=== PATIENT | female | born 1970 | race Caucasian/White ===

== ENCOUNTER → 2025-03-24 | Outpatient (CLI) | payer BC, SELFPAY ==
[2025-03-24 14:15] LABS: Mucous, Urine 0 SEEN /hpf (<or=2+)
[2025-03-24 17:58] LABS: Hematocrit 40.9 % (37-47); Hemoglobin 13.7 g/dL (12.0-15.0); Immature Granulocytes Count 0.010 X10^3/uL (0.0-0.0); Mean Corp Hgb Conc 33.5 g/dL (32-36); Mean Corpuscular Volume 88.7 fL (81-99); Mean Platelet Vol. 9.2 fl (6.2-12.0); NRBC Flagged by Analyzer 0 % (0-5); Platelet Count 255 K/mm3 (150-450); RBC Distribution Width CV 12.0 % (11.6-14.6); RBC Distribution Width SD 38.7 fl (35.1-43.9); Red Blood Count 4.61 M/mm3 (4.2-5.4); White Blood Count 5.6 K/mm3 (4.4-11.0)
[2025-03-24 18:04] LABS: Color, Urine Straw (Yellow); Glucose, Dipstick Normal (Normal); Ketone-Dipstick Negative (Negative); Leukocyte Esterase-Dipstick Negative /ul (Negative); Nitrite-Dipstick Negative (Negative); Occult Blood-Urine 10 /ul (Negative); Protein-Dipstick Negative (Negative); Specific Gravity, Urine 1.010 (1.002-1.030); Urine Bilirubin Dipstick Negative (Negative)
[2025-03-24 18:49] LABS: AST(SGOT) 24 U/L (<=31); Alanine Aminotransfer ALT/SGPT 19 U/L (<=34); Albumin, Serum 4.9 g/dL (3.5-5.0); Alkaline Phosphatase 79 U/L (35-104); Anion Gap 13 (5-15); BUN 15 mg/dL (4-19); BUN/Creat Ratio 18.3 RATIO (10-20); Calcium,Total 9.8 mg/dL (7.6-11.0); Carbon Dioxide 26.7 mmol/L (21.0-32.0); Chloride 100 mmol/L (98-108); Globulin 2.8 g/dL (2.2-4.2); Glucose 92 mg/dL (70-99); Potassium 3.9 mmol/L (3.3-5.1)
[2025-03-24 19:21] LABS: CRP < 3.00 mg/L (0.0-3.0); Ferritin 111 ng/mL (22-378); Iron 93 ug/dL (50-170); T3 Total - Triiodothyronine 1.01 ng/mL (0.80-2.00); Vitamin B12 516 pg/mL (180-914); Vitamin D,25 Hydroxy 34.9 ng/mL (30-100)
[2025-03-24 22:28] LABS: Red Blood Cells-Urine 0-5 SEEN /hpf (0-5); Squamous Epithelial Cells - UA 0-5 SEEN /hpf (5-10)
[2025-03-30 13:08] LABS: Testosterone, % Free 2.06 % (0.50-2.80); Testosterone, Free 0.14 ng/dL (0.10-0.85)
== END | disposition home or self-care (01) ==
PROVIDERS: PCP Internal Medicine; Referring Provider Internal Medicine; Visit Provider Internal Medicine
DX: I10 Essential (primary) hypertension (principal); E03.9 Hypothyroidism, unspecified; R53.83 Other fatigue
CPT/HCPCS: 36415; 80053; 81001; 82306; 82607; 82670; 82728; 83540; 84402; 84403; 84439; 84443; 84480; 85025; 85652; 86140

== ENCOUNTER → 2025-05-05 | Outpatient (CLI) | payer BC, SELFPAY ==
--- NOTE | 2025-05-05 08:29 | BD_ITS ---
PROCEDURE: DEXA BONE DENSITY STUDY 05/05/2025 REASON FOR EXAM: F, age 55 y/o . Patient is postmenopausal. TECHNIQUE: Procedure Code: BDDBD Modality: DX Procedure: DEXA BONE DENSITY STUDY COMPARISON: None FINDINGS: BMD and T-SCORES Lumbar spine: 0.870 g/cm2, T-score -1.6 Levels: L1 through L4 Left femoral neck: 0.634 g/cm2, T-score -1.9 Left total hip: 0.800 g/cm2, T-score -1.2 Right femoral neck: 0.633 g/cm2, T-score -1.9 Right total hip: 0.816 g/cm2, T-score -1.0 The World Health Organization has defined the following categories based on bone density: Normal bone density: T-score equal to or greater than -1.0 Osteopenia: T-score between -1.0 and -2.5 Osteoporosis: T-score equal to or less than -2.5 FRAX (or Comparable) Fracture Risk Assessment: 10 Year Probability of Fracture: Major Osteoporotic Fracture: 7.7% Hip Fracture: 0.9% (Note: FRAX is not to be reported in setting of normal range bone density, osteoporosis on DEXA, known history of osteoporosis, prior osteoporotic hip or vertebral fracture, or for any patient undergoing pharmacological treatment for bone loss.) The National Osteoporosis Foundation (NOF) recommends pharmacological treatment for patients with a FRAX 10-year risk of 3% or higher for a hip fracture, or 20% or higher for a major osteoporotic fracture, to prevent osteoporosis and reduce fracture risk. The patient does not meet the pharmacological treatment recommendations for prevention of osteoporosis. BD/Dexa Bone Density Study IMPRESSION: OSTEOPENIA. Recommend follow-up in 1 year. Reading Location: [id number]
--- OUTSIDE RECORDS SUMMARY | 2025-05-05 08:47 | XMS RPT_ITS | CCD ---
Author Organization [facility] ion Partnership [facility] Care Team Providers Care Hall Porter Name Role Phone Kathy Madrigal MD Primary Care Provider Iris Carranza Jr. Unavailable [phone] Kathy Madrigal MD Primary Care Provider [phone] Dillon Matthew MD, James Andrew Unavailable Aashish PARACHUTE PACKER.FRED, Lorena Unavailable KATHY MADRIGAL Primary Care Unavailable JORGE BARRETO Referring Unavailable KATHY MADRIGAL Referring Unavailable KATHY MADRIGAL Primary Care Unavailable LORENA ZENDEJAS Attending Unavailable KATHY MADRIGAL Primary Care Unavailable KATHY MADRIGAL Primary Care Unavailable KATHY MADRIGAL Attending Unavailable KATHY MADRIGAL Primary Care Unavailable SONWELLMARCO ANTONIOA Attending Unavailable KenishaCarson lundyril Attending Unavailable Scout Madrigal Primary Care Unavailable Fast, Alma Referring Unavailable Fast, Alma Attending Unavailable Fast, Alma Primary Care Unavailable Allergies Allergy Classification Reported Allergen(s) Allergy Type Date of Onset Reaction(s) Facility Macrolides (antibiotic) (1 source) Erythromycin Drug Allergy 8 [facility] (20 sources) Erythromycin; Translations: [ERYTHROMYCIN] Drug Allergy 8 [facility] (20 sources) Bees; Translations: [BEES] Propensity to adverse reactions 8 Cough, [facility] (20 sources) Kiwi; Translations: [KIWI] Propensity to adverse reactions 8 [facility] (1 source) Erythromycin Drug Allergy 6 [facility] Repository Medications Current Medications Medication Drug Class(es) Dates Sig (Normalized) Sig (Original) amoxicillin 875 mg / clavulanate 125 mg oral tablet (1 source) Penicillin-class Antibacterial Start: 04-20-2023 End: 04-27-2023 take 1 tablet by mouth twice daily amoxicillin-clavulan ate potassium (AUGMENTIN) 875-125 mg per tablet Indications: Sinobronchitis Take 1 tablet by mouth two times a day for 7 days. 14 tablet 0 04/20/2023 04/27/2023 Active Comment on above: Take 1 tablet by sammi th two times a day for 7 days. aspirin 81 mg chewable tablet (17 sources) Platelet Aggregation Inhibitor, Nonsteroidal Anti-inflammatory Drug Start: 07-21-2015 take 81 mg by mouth once daily Aspirin Active 81 MG PO DAILY@0800 July 21, 2015 1:00am Start: 06-02-2015 take 1 tablet by sammi th once daily aspirin, enteric coated (ASPIRIN, ENTERIC COATED) 81 mg EC tablet Take 1 tablet by mouth once daily. 0 06/02/2015 Active Comment on above: Take 1 tablet by sammi th once daily. [id number] Calcium-B6 (Foltx Tablet) 1 EACH tablet (1 source) Start: 07-21-19 16 [id number] Calcium-B6 (Foltx Tablet) 1 EACH tablet Active 1 EACH PO July 21, 2015 1:00am benzonatate 100 mg oral capsule (1 source) Non-narcotic Antitussive Start: 04-20-20 End: 04-30-20 23 take 2 capsules by mouth three times daily as needed benzonatate (TESSALON PERLE) 100 mg capsule Indications: Sinobronchitis Take 2 capsules by mouth three times a day as needed for up to 10 days. 60 capsule 0 04/20/2023 04/30/2023 Active Comment on above: Take 2 capsules by m out three times a day as needed for up to 10 days. busPIRone hydrochloride 10 mg oral tablet (20 sources) Start: 03-16-20 End: 09-11-19 take 1 tablet by mouth three times daily as needed busPIRone (BUSPAR) 10 mg tablet Indications: Mixed anxiety and depressive disorder TAKE 1 TABLET BY MOUTH THREE TIMES A DAY NEEDED 270 tablet 1 09/10/2024 Active Start: 08-04-2017 End: 03-16-2021 busPIRone (BUSPAR) 5 mg tabl et Comment on above: Take 1 tablet by sammi th three times daily. citalopram 20 mg oral tablet (20 sources) Serotonin Reuptake Inhibitor Start: 03-19-2024 take 1.5 tablets by mouth once daily citalopram (CELEXA) 20 mg tablet Indications: Mixed anxiety and depressive disorder Take 1.5 tablets by mouth once daily. 135 tablet 2 03/19/2024 Active Start: 07-06-2023 End: 03-19-2024 citalopram (CELEXA) 20 mg ta blet Indications: Mixed anxiety and depressive disorder TAKE 1 AND 1/2 TABLETS ONCEDAILY 135 tablet 2 07/06/2023 03/19/2024 Discontinued Start: 03-16-2021 End: 07-06-2023 take 1.5 tablets by mouth once daily citalopram (CELEXA) 20 mg tablet Indications: Mixed anxiety and depressive disorder Take 1.5 tablets by mouth once daily. 135 tablet 3 07/24/2022 07/06/2023 Discontinued Start: 03-12-2020 End: 03-16-2021 take 2 tablets by mouth once daily citalopram (CELEXA) 20 mg tablet Indications: Mixed anxiety and depressive disorder Take 2 tablets by mouth once daily. 180 tablet 3 03/12/2020 03/16/2021 Discontinued Start: 02-19-2020 End: 03-16-2021 take 1 tablet by mouth once daily citalopram (CELEXA) 20 mg tablet Indications: Mixed anxiety and depressive disorder TAKE 1 TABLET BY MOUTH EVERY DAY 90 tablet 1 02/19/2020 03/16/2021 Discontinued Comment on above: TAKE 1 TABLET BY SAMMI TH EVERY DAY Take [address] [facility] once daily. Take 1.5 tablets by mouth once daily. TAKE 1 AND 1/2 TABLE TS ONCEDAILY docusate sodium 50 mg / sennosides, senior care 8.6 mg oral tablet (1 source) Start: 07-21-2015 Sennosides-Docusate Sodium (Senokot-S, Shayy-Colace) 1 TABLET tablet Active 2 TABLET PO DAILY July 21, 2015 1:00am [id number] 0.3 ml EPINEPHrine 1 mg/ml auto-injector (20 sources) alpha-Adrenergic Agonist, beta-Adrenergic Agonist, Catecholamine Start: 03-19-2018 End: 03-19-2024 EPINEPHrine (EPIPEN) 0.3 mg/0.3 mL auto-injector Indications: Bee sting allergy As instructed, when needed 1 Each 03/19/2024 Active Comment on above: As instructed, when needed estradiol 0.004 mg vaginal insert (20 sources) Estrogen Start: 03-31-2022 End: 04-28-2024 estradiol 4 mcg vaginal suppository maintenance pack (IMVEXXY) Indications: Vaginal atrophy Use 1 Suppository vaginally two times a week. 24 Each 3 04/28/2024 Active Start: 02-10-2022 estradiol 4 mc g vaginal suppository maintenance pack (IMVEXXY) Indications: Vaginal atrophy Use 1 Suppository vaginally two times a week. 8 Each 3 02/10/2022 Active Start: 01-25-2022 estradiol (EST RACE) 0.01 % (0.1 mg/gram) vaginal cream Indications: Vaginal dryness Use 1 g vaginally two times a week. 126 g 0 01/25/2022 Active Start: 12-31-2020 End: 01-22-2022 estradiol (ESTRACE) 0.01 % ( 0.1 mg/gram) vaginal cream Indications: Vaginal dryness Use 1 g vaginally two times a week. 126 g 1 12/31/2020 01/22/2022 Discontinued Comment on above: Use 1 g vaginally tw o times a week. Use 1 Suppository va ginally two times a week. fluticasone propionate 0.05 mg/actuat metered dose nasal spray (20 sources) Corticosteroid Start: 09-20-19 17 take 2 spray(s) nasal route once daily fluticasone (FLONASE) 50 mcg/actuation nasal spray USE 2 SPRAYS IN EACH NOSTRIL ONCE DAILY. 1 Bottle 11 09/19/2016 Active Comment on above: USE 2 SPRAYS IN EACH NOSTRIL ONCE DAILY. folic acid 2.5 mg / vitamin b12 2 mg / vitamin b6 25 mg oral tablet (20 sources) Vitamin B12 Start: 04-12-20 End: 07-24-19 23 take 1 tablet by mouth once daily folic acid-Vit B6-Vit B12 (FOLBIC) 2.5-25-2 mg tab Take 1 tablet by mouth once daily. 90 tablet 3 07/24/2022 Active Comment on above: TAKE 1 TABLET BY SAMMI TH ONCE DAILY. levothyroxine sodium 0.125 mg oral tablet (20 sources) l-Thyroxine Start: 10-01-19 take 1 tablet by mouth once daily levothyroxine (SYNTHROID) 125 mcg tablet Take 1 tablet by mouth once daily. 90 tablet 1 09/30/2024 Active Start: 03-14-2023 End: 09-30-2024 take 1 tablet by mouth once daily levothyroxine (SYNTHROID) 25 mcg tablet Take 1 tablet by mouth once daily. Take on empty stomach. For Thyroid. In addition to the 100 mcg dose tablet . 90 tablet 10/10/2023 09/30/2024 Discontinued (Changing Therapy/Dosage Form) Start: 02-19-2023 End: 09-30-2024 take 1 tablet by mouth once daily levothyroxine (SYNTHROID) 100 mcg tablet Indications: Acquired hypothyroidism Take 1 tablet by mouth once daily. 90 tablet 3 10/10/2023 09/30/2024 Discontinued (Changing Therapy/Dosage Form) Start: 07-21-2015 End: 12-15-2021 take 1 tablet by mouth once daily levothyroxine (SYNTHROID) 100 mcg tablet Indications: Acquired hypothyroidism Take 1 tablet by mouth once daily. 90 tablet 2 12/15/2021 Active Comment on above: TAKE 1 TABLET BY SAMMI TH EVERY DAY Take 1 tablet by sammi th once daily. Take 1 tablet by sammi th once daily. Take on empty stomach. For Thyroid. In addition to the 100 mcg dose tablet . lisinopril 10 mg oral tablet (20 sources) Angiotensin Converting Enzyme Inhibitor Start: 3 End: take 1 tablet by mouth once daily lisinopril (ZESTRIL) 10 mg tablet Indications: Primary hypertension Take 1 tablet by mouth once daily. 90 tablet 3 03/19/2024 Active Start: 03-12-2020 End: 02-08-2023 take 1 tablet by mouth once daily lisinopril (ZESTRIL) 10 mg tablet Indications: Essential hypertension Take 1 tablet by mouth once daily. 90 tablet 0 02/08/2023 Active Comment on above: Take 1 tablet by sammi th once daily. meclizine hydrochloride 25 mg oral tablet (20 sources) Antiemetic Start: 2 take 1 tablet by mouth every eight hours as needed meclizine (ANTIVERT) 25 mg tab Take 1 tablet by mouth three times daily as needed (dizziness). 10 tablet 06/22/2021 Active Start: 07-21-2015 take 1 tablet by sammi th every eight hours as needed Meclizine (Antivert) 25 MG tablet Active 25 MG PO EVERY 8 HOURS NEEDED July 21, 2015 1:00am Comment on above: Take 1 tablet by sammi th three times daily as needed (dizziness). melatonin 5 mg oral tablet (20 sources) Start: 6 take 1 tablet by mouth once daily at bedtime Melatonin 5 mg tab Take 1 tablet by mouth daily at bedtime. 0 06/02/2015 Active Comment on above: Take 1 tablet by sammi th daily at bedtime. montelukast 10 mg oral tablet (20 sources) Leukotriene Receptor Antagonist Start: 3 End: 4 take 1 tablet by mouth once daily at bedtime montelukast (SINGULAIR) 10 mg tablet Indications: Seasonal allergic rhinitis, unspecified trigger Take 1 tablet by mouth daily at bedtime. 90 tablet 3 03/19/2024 Active Start: 11-09-2021 End: 09-11-2022 take 1 tablet by mouth once daily at bedtime montelukast (SINGULAIR) 10 mg tablet Take 1 tablet by mouth daily at bedtime. 90 tablet 1 09/11/2022 Active Start: 07-25-2021 take 1 tablet by sammi th once daily at bedtime montelukast (SINGULAIR) 10 mg tablet TAKE 1 TABLET BY MOUTH EVERYDAY AT BEDTIME 90 tablet 0 07/25/2021 Active Start: 01-18-2021 End: 04-23-2021 take 1 tablet by mouth once daily at bedtime montelukast (SINGULAIR) 10 mg tablet Take 1 tablet by mouth daily at bedtime. 90 tablet 0 01/18/2021 04/23/2021 Discontinued Start: 07-21-2015 Singulair Acti ve July 21, 2015 1:00am Comment on above: Take 1 tablet by sammi th daily at bedtime. TAKE 1 TABLET BY SAMMI TH EVERYDAY AT BEDTIME ondansetron 4 mg disintegrating oral tablet (1 source) Serotonin-3 Receptor Antagonist Start: 6 take 4 mg by mouth every eight hours as needed Ondansetron Active 4 MG PO EVERY 8 HOURS NEEDED July 21, 2015 1:00am predniSONE 10 mg oral tablet (3 sources) Start: End: 4 predniSONE (DELTASONE) 10 mg tablet Take 4 tabs daily for 3 days, then 2 tabs daily for 3 days, then 1 tab daily for 3 days with food. 21 tablet 0 07/10/2023 07/19/2023 Active Start: 04-20-2023 End: 04-24-2023 take 2 tablets by mouth once daily at mealtime predniSONE (DELTASONE) 20 mg tablet Indications: Sinobronchitis Take 2 tablets by mouth once daily for 4 days. Take daily with food. 8 tablet 0 04/20/2023 04/24/2023 Active Comment on above: Take [address] [facility] once daily for 4 days. Take daily with food. Take 4 tabs daily fo r 3 days, then 2 tabs daily for 3 days, then 1 tab daily for 3 days with food. sertraline 100 mg oral tablet (1 source) Serotonin Reuptake Inhibitor Start: 07-21-2015 take 100 mg by mouth once daily Sertraline Active 100 MG PO DAILY July 21, 2015 1:00am Completed/Discontinued Medications Medication Drug Class(es) Dates Sig (Normalized) Sig (Original) doxycycline anhydrous 40 mg delayed release oral capsule (17 sources) Tetracycline-class Drug Start: 07-21-2015 take 1 capsule by mouth once daily Doxycycline Monohydrate 40 mg capsule Indications: Rosacea TAKE 1 CAPSULE BY MOUTH EVERY DAY 90 capsule 1 03/18/2019 Active Comment on above: TAKE 1 CAPSULE BY MO [facility] EVERY DAY naproxen 500 mg oral tablet (11 sources) Nonsteroidal Anti-inflammatory Drug Start: 05-05-2023 End: 03-19-2024 take 1 tablet by mouth every twelve hours as needed naproxen (NAPROSYN) 500 mg tablet Take 1 tablet by mouth two times a day as needed (for pain/inflammation) . Take with food. 14 tablet 05/05/2023 03/19/2024 Discontinued (Course of therapy completed) Comment on above: Take 1 tablet by sammi th two times a day as needed (for pain/inflammation). Take with food. VOL-TAB RX 29 mg iron- 1 mg tab (16 sources) Start: 04-01-2018 take 1 tablet by mouth once daily VOL-TAB RX 29 mg iron- 1 mg tab TAKE 1 TABLET BY MOUTH ONCE DAILY. 90 tablet 3 04/01/2018 Active Comment on above: TAKE 1 TABLET BY SAMMI TH ONCE DAILY. Problems Active Problems Problem Classification Problem Date Documented Date Episodic/Chronic Anxiety disorders (20 sources) Mixed anxiety and depressive disorder; Translations: [Other specified anxiety disorders] Onset: 05-22-2014 05-22-2014 Chronic Coma; stupor; and brain damage (2 sources) Daytime somnolence; Translations: [Somnolence] 03-14-2023 Episodic Deficiency and other anemia (20 sources) Hemolytic uremic syndrome; Translations: [Hemolytic-uremic syndrome] Onset: 05-14-2011 09-17-2018 Chronic Essential hypertension (20 sources) Hypertensive disorder; Translations: [Essential (primary) hypertension] Onset: 07-24-2013 07-24-2013 Chronic Headache; including migraine (20 sources) Migraine; Translations: [Migraine, unspecified, not intractable, without status migrainosus] 03-12-2017 Chronic Immunizations and screening for infectious disease (1 source) Vaccination given; Translations: [Encounter for immunization] Episodic Malaise and fatigue (3 sources) Fatigue; Translations: [Other fatigue] Onset: 03-24-2025 03-14-2023 Episodic Menopausal disorders (20 sources) Abnormal perimenopausal bleeding; Translations: [Excessive bleeding in the premenopausal period] Onset: 09-17-2016 09-17-2016 Chronic Nonspecific chest pain (2 sources) Chest wall pain; Translations: [Other chest pain] 07-11-2023 Episodic Other and unspecified benign neoplasm (1 source) Lipoma of anterior chest wall; Translations: [Benign lipomatous neoplasm of skin and subcutaneous tissue of trunk] 10-10-2023 Episodic Other bone disease and musculoskeletal deformities (1 source) Costal chondritis; Translations: [Chondrocostal junction syndrome [Tietze]] 07-11-2023 Episodic Other female genital disorders (1 source) Vaginal dryness; Translations: [Other specified noninflammatory disorders of vagina] Episodic Other inflammatory condition of skin (20 sources) Rosacea; Translations: [Rosacea, unspecified] Onset: 12-13-2018 12-13-2018 Chronic Other lower respiratory disease (1 source) Snoring; Translations: [Snoring] 03-16-2023 Episodic Other lower respiratory disease (3 sources) Persistent cough; Translations: [Persistent cough for 3 weeks or longer] 04-20-2023 Episodic Other lower respiratory disease (1 source) Cough; Translations: [Subacute cough] 05-05-2023 Episodic Other lower respiratory disease (1 source) Rib pain; Translations: [Pleurodynia] 05-05-2023 Episodic Other upper respiratory disease (20 sources) Allergic rhinitis; Translations: [Allergic rhinitis, unspecified] 02-18-2008 Chronic Other upper respiratory disease (3 sources) Seasonal allergic rhinitis; Translations: [Other seasonal allergic rhinitis] Chronic Other upper respiratory disease (1 source) Other seasonal allergic rhinitis; Translations: [Seasonal allergic rhinitis, unspecified trigger] Onset: 12-15-2021 Chronic Other upper respiratory infections (1 source) Chronic sinusitis; Translations: [Chronic sinusitis, unspecified] 04-20-2023 Chronic Other upper respiratory infections (1 source) Viral upper respiratory tract infection; Translations: [Acute upper respiratory infection, unspecified] 08-03-2023 Episodic Residual codes; unclassified (2 sources) Daytime somnolence; Translations: [Other hypersomnia] 03-16-2023 Chronic Residual codes; unclassified (1 source) Obstructive sleep apnea syndrome; Translations: [Obstructive sleep apnea (adult) (pediatric)] 09-16-2023 Chronic Residual codes; unclassified (1 source) Other specified personal risk factors, not elsewhere classified; Translations: [Other specified personal history presenting hazards to health] Episodic Spondylosis; intervertebral disc disorders; other back problems (1 source) Sciatica; Translations: [Sciatica, left side] Episodic Sprains and strains (2 sources) Shoulder strain; Translations: [Strain of unspecified muscle, fascia and tendon at shoulder and upper arm level, right arm, initial encounter] Onset: 11-05-2024 11-05-2024 Episodic Thyroid disorders (20 sources) Acquired hypothyroidism; Translations: [Hypothyroidism, unspecified] Onset: 03-06-2016 03-06-2016 Chronic Unclassified (1 source) APPOINTMENT CANCELLED 08-06-2023 Past or Other Problems Problem Classification Problem Date Documented Da te Episodic/Chronic Allergic reactions (20 sources) Allergy to bee venom; Translations: [Bee allergy status] Onset: 08-20-2014 08-20-2014 Episodic Inflammatory diseases of female pelvic organs (20 sources) Vaginitis; Translations: [Acute vaginitis] Onset: 09-11-2016 09-11-2016 Episodic Other female genital disorders (20 sources) Disorder of female genital system; Translations: [Unspecified condition associated with female genital organs and menstrual cycle] Onset: 09-11-2016 09-11-2016 Episodic Other screening for suspected conditions (not mental disorders or infectious disease) (7 sources) Patient encounter status; Translations: [Encounter for screening mammogram for malignant neoplasm of breast] Onset: 03-26-2024 Episodic Residual codes; unclassified (20 sources) Family history of ischemic heart disease; Translations: [Family history of ischemic heart disease and other diseases of the circulatory system] Onset: 03-18-2009 03-18-2009 Episodic Results Test Name Value Interpretation Reference Range Facility CBC W/Diff, Automatedon 03-14 Absolute Lymph 1.05 X10 3/uL Normal 0.83-4.51 [facility] Comment on above: Performed By: #### L 503.0106, L400.0001, L500.4050, L501.6710, L501.9187, L3300.1750, L503.6550, L101.9900, L503.6150, L501.9520, L506.1001, L506.0400, L100.0100 #### [facility] [address] [place], [address] Absolute Neut 4.2 X10 3/uL Normal 2.0-7.7 [facility] Comment on above: Performed By: #### L 503.0106, L400.0001, L500.4050, L501.6710, L501.9187, L3300.1750, L503.6550, L101.9900, L503.6150, L501.9520, L506.1001, L506.0400, L100.0100 #### [facility] [address] [place], [address] Basophils/100 WBC (Bld) 0.7 % Normal 0-1 [facility] Comment on above: Performed By: #### L 503.0106, L400.0001, L500.4050, L501.6710, L501.9187, L3300.1750, L503.6550, L101.9900, L503.6150, L501.9520, L506.1001, L506.0400, L100.0100 #### [facility] [address] [place], [address] Eosinophils/100 WBC (Bld) 0.5 % Normal 0-5 [facility] Comment on above: Performed By: #### L 503.0106, L400.0001, L500.4050, L501.6710, L501.9187, L3300.1750, L503.6550, L101.9900, L503.6150, L501.9520, L506.1001, L506.0400, L100.0100 #### [facility] [address] [place], [address] Erythrocyte distribution width (RBC) [Ratio] 12.0 % Normal 11.6-14.6 [facility] Comment on above: Performed By: #### L 503.0106, L400.0001, L500.4050, L501.6710, L501.9187, L3300.1750, L503.6550, L101.9900, L503.6150, L501.9520, L506.1001, L506.0400, L100.0100 #### [facility] [address] [place], [address] Hematocrit (Bld) [Volume fraction] 40.9 % Normal 37-47 [facility] Comment on above: Performed By: #### L 503.0106, L400.0001, L500.4050, L501.6710, L501.9187, L3300.1750, L503.6550, L101.9900, L503.6150, L501.9520, L506.1001, L506.0400, L100.0100 #### [facility] [address] [place], [address] Hemoglobin (Bld) [Mass/Vol] 13.7 g/dL Normal 12.0-15.0 [facility] Comment on above: Performed By: #### L 503.0106, L400.0001, L500.4050, L501.6710, L501.9187, L3300.1750, L503.6550, L101.9900, L503.6150, L501.9520, L506.1001, L506.0400, L100.0100 #### [facility] [address] [place], [address] IG% 0.200 Normal 0.0-0.9 [facility] Comment on above: Result Comment: IG% - Immature Granulocytes (promyelocytes, myelocytes and metamyelocytes) > 1% indicates that a LEFT SHIFT is Present. Performed By: #### L 503.0106, L400.0001, L500.4050, L501.6710, L501.9187, L3300.1750, L503.6550, L101.9900, L503.6150, L501.9520, L506.1001, L506.0400, L100.0100 #### [facility] [address] [place], [address] Lymphocytes/100 WBC (Bld) 18.7 % Low 19-41 [facility] Comment on above: Performed By: #### L 503.0106, L400.0001, L500.4050, L501.6710, L501.9187, L3300.1750, L503.6550, L101.9900, L503.6150, L501.9520, L506.1001, L506.0400, L100.0100 #### [facility] [address] [place], [address] MCH (RBC) [Entitic mass] 29.7 pg Normal 27.0-32.0 [facility] Comment on above: Performed By: #### L 503.0106, L400.0001, L500.4050, L501.6710, L501.9187, L3300.1750, L503.6550, L101.9900, L503.6150, L501.9520, L506.1001, L506.0400, L100.0100 #### [facility] [address] [place], [address] MCHC (RBC) [Mass/Vol] 33.5 g/dL Normal 32-[address] [facility] Comment on above: Performed By: #### L 503.0106, L400.0001, L500.4050, L501.6710, L501.9187, L3300.1750, L503.6550, L101.9900, L503.6150, L501.9520, L506.1001, L506.0400, L100.0100 #### [facility] [address] [place], [address] MCV (RBC) [Entitic vol] 88.7 fL Normal 81-99 [facility] Comment on above: Performed By: #### L 503.0106, L400.0001, L500.4050, L501.6710, L501.9187, L3300.1750, L503.6550, L101.9900, L503.6150, L501.9520, L506.1001, L506.0400, L100.0100 #### [facility] [address] [place], [address] Monocytes/100 WBC (Bld) 4.6 % Normal 0-10 [facility] Comment on above: Performed By: #### L 503.0106, L400.0001, L500.4050, L501.6710, L501.9187, L3300.1750, L503.6550, L101.9900, L503.6150, L501.9520, L506.1001, L506.0400, L100.0100 #### [facility] [address] [place], [address] Neutrophils/100 WBC (Bld) 75.3 % High 47-70 [facility] Comment on above: Performed By: #### L 503.0106, L400.0001, L500.4050, L501.6710, L501.9187, L3300.1750, L503.6550, L101.9900, L503.6150, L501.9520, L506.1001, L506.0400, L100.0100 #### [facility] [address] [place], [place], [id number] (925) Nucleated RBC (Bld) [#/Vol] 0 10*3/uL Normal 0-5 [facility] Comment on above: Performed By: #### L 503.0106, L400.0001, L500.4050, L501.6710, L501.9187, L3300.1750, L503.6550, L101.9900, L503.6150, L501.9520, L506.1001, L506.0400, L100.0100 #### [facility] [address] [place], [place], [id number] ([phone]) Platelet mean volume (Bld) [Entitic vol] 9.2 fL Normal 6.2-12.0 [facility] Comment on above: Performed By: #### L 503.0106, L400.0001, L500.4050, L501.6710, L501.9187, L3300.1750, L503.6550, L101.9900, L503.6150, L501.9520, L506.1001, L506.0400, L100.0100 #### [facility] [address] [place], [address] Platelets (Bld) [#/Vol] 255 10*3/uL Normal 150-450 [facility] Comment on above: Performed By: #### L 503.0106, L400.0001, L500.4050, L501.6710, L501.9187, L3300.1750, L503.6550, L101.9900, L503.6150, L501.9520, L506.1001, L506.0400, L100.0100 #### [facility] [address] [place], [address] RBC (Bld) [#/Vol] 4.61 10*6/uL Normal 4.2-5.4 [facility] Comment on above: Performed By: #### L 503.0106, L400.0001, L500.4050, L501.6710, L501.9187, L3300.1750, L503.6550, L101.9900, L503.6150, L501.9520, L506.1001, L506.0400, L100.0100 #### [facility] [address] [place], [address] RDW SD 38.7 fl Normal 35.1-43.9 [facility] Comment on above: Performed By: #### L 503.0106, L400.0001, L500.4050, L501.6710, L501.9187, L3300.1750, L503.6550, L101.9900, L503.6150, L501.9520, L506.1001, L506.0400, L100.0100 #### [facility] [address] [place], [address] WBC (Bld) [#/Vol] 5.6 10*3/uL Normal 4.4-11.0 [facility] Comment on above: Performed By: #### L 503.0106, L400.0001, L500.4050, L501.6710, L501.9187, L3300.1750, L503.6550, L101.9900, L503.6150, L501.9520, L506.1001, L506.0400, L100.0100 #### [facility] [address] [place], [place], [id number] CRPon 03-24-2025 C-REACTIVE PROT < 3.00 Normal 0.0-3.0 [facility] Comment on above: Performed By: #### L 503.0106, L400.0001, L500.4050, L501.6710, L501.9187, L3300.1750, L503.6550, L101.9900, L503.6150, L501.9520, L506.1001, L506.0400, L100.0100 #### [facility] [address] [place], [place], [phone] Comprehensive Metabolic Prof ilon 03-24-2025 Albumin [Mass/Vol] 4.9 g/dL Normal 3.5-5.0 [facility] Comment on above: Performed By: #### L 503.0106, L400.0001, L500.4050, L501.6710, L501.9187, L3300.1750, L503.6550, L101.9900, L503.6150, L501.9520, L506.1001, L506.0400, L100.0100 #### [facility] [address] [place], [place], [id number] Albumin/Globulin [Mass ratio] 1.7 {ratio} Normal 0.9-2.4 [facility] Comment on above: Performed By: #### L 503.0106, L400.0001, L500.4050, L501.6710, L501.9187, L3300.1750, L503.6550, L101.9900, L503.6150, L501.9520, L506.1001, L506.0400, L100.0100 #### [facility] [address] [place], [place], [id number] ALK PHOS 79 U/L Normal 35-104 [facility] Comment on above: Performed By: #### L 503.0106, L400.0001, L500.4050, L501.6710, L501.9187, L3300.1750, L503.6550, L101.9900, L503.6150, L501.9520, L506.1001, L506.0400, L100.0100 #### [facility] [address] [place], [address] ALT [Catalytic activity/Vol] 19 U/L Normal <=34 [facility] Comment on above: Performed By: #### L 503.0106, L400.0001, L500.4050, L501.6710, L501.9187, L3300.1750, L503.6550, L101.9900, L503.6150, L501.9520, L506.1001, L506.0400, L100.0100 #### [facility] [address] [place], [place], [id number] AST [Catalytic activity/Vol] 24 U/L Normal <=31 [facility] Comment on above: Performed By: #### L 503.0106, L400.0001, L500.4050, L501.6710, L501.9187, L3300.1750, L503.6550, L101.9900, L503.6150, L501.9520, L506.1001, L506.0400, L100.0100 #### [facility] [address] [place], [place], [id number] Bilirubin [Mass/Vol] 0.52 mg/dL Normal 0.00-1.30 [facility] Comment on above: Performed By: #### L 503.0106, L400.0001, L500.4050, L501.6710, L501.9187, L3300.1750, L503.6550, L101.9900, L503.6150, L501.9520, L506.1001, L506.0400, L100.0100 #### [facility] [address] [place], [address] BUN/CRE 18.3 RATIO Normal 10-20 [facility] Comment on above: Performed By: #### L 503.0106, L400.0001, L500.4050, L501.6710, L501.9187, L3300.1750, L503.6550, L101.9900, L503.6150, L501.9520, L506.1001, L506.0400, L100.0100 #### [facility] [address] [place], [place], [phone] (093) Calcium [Mass/Vol] 9.8 mg/dL Normal 7.6-11.0 [facility] Comment on above: Performed By: #### L 503.0106, L400.0001, L500.4050, L501.6710, L501.9187, L3300.1750, L503.6550, L101.9900, L503.6150, L501.9520, L506.1001, L506.0400, L100.0100 #### [facility] [address] [place], [address] Chloride [Moles/Vol] 100 mmol/L Normal 98-108 [facility] Comment on above: Performed By: #### L 503.0106, L400.0001, L500.4050, L501.6710, L501.9187, L3300.1750, L503.6550, L101.9900, L503.6150, L501.9520, L506.1001, L506.0400, L100.0100 #### [facility] [address] [place], [address] CO2 [Moles/Vol] 26.7 mmol/L Normal 21.0-32.0 [facility] Comment on above: Performed By: #### L 503.0106, L400.0001, L500.4050, L501.6710, L501.9187, L3300.1750, L503.6550, L101.9900, L503.6150, L501.9520, L506.1001, L506.0400, L100.0100 #### [facility] [address] [place], [address] Creatinine [Mass/Vol] 0.83 mg/dL Normal 0.70-1.[address] [facility] Comment on above: Performed By: #### L 503.0106, L400.0001, L500.4050, L501.6710, L501.9187, L3300.1750, L503.6550, L101.9900, L503.6150, L501.9520, L506.1001, L506.0400, L100.0100 #### [facility] [address] [place], [address] GAP 13 Normal 5-15 [facility] Comment on above: Performed By: #### L 503.0106, L400.0001, L500.4050, L501.6710, L501.9187, L3300.1750, L503.6550, L101.9900, L503.6150, L501.9520, L506.1001, L506.0400, L100.0100 #### [facility] [address] [place], [address] GFR/1.73 sq M.predicted among non-blacks MDRD (S/P/Bld) [Vol rate/Area] 83 mL/min/{1.73_m2} Normal >60 [facility] Comment on above: Result Comment: mL/m in/1.73m2 CKD-EPI Creatinine Equation (2020) Performed By: #### L 503.0106, L400.0001, L500.4050, L501.6710, L501.9187, L3300.1750, L503.6550, L101.9900, L503.6150, L501.9520, L506.1001, L506.0400, L100.0100 #### [facility] [address] [place], [address] Globulin (S) [Mass/Vol] 2.8 g/dL Normal 2.2-4.2 [facility] Comment on above: Performed By: #### L 503.0106, L400.0001, L500.4050, L501.6710, L501.9187, L3300.1750, L503.6550, L101.9900, L503.6150, L501.9520, L506.1001, L506.0400, L100.0100 #### [facility] [address] [place], [address] Glucose [Mass/Vol] 92 mg/dL Normal 70-99 [facility] Comment on above: Performed By: #### L 503.0106, L400.0001, L500.4050, L501.6710, L501.9187, L3300.1750, L503.6550, L101.9900, L503.6150, L501.9520, L506.1001, L506.0400, L100.0100 #### [facility] [address] [place], [address] Potassium [Moles/Vol] 3.9 mmol/L Normal 3.3-5.[address] [facility] Comment on above: Performed By: #### L 503.0106, L400.0001, L500.4050, L501.6710, L501.9187, L3300.1750, L503.6550, L101.9900, L503.6150, L501.9520, L506.1001, L506.0400, L100.0100 #### [facility] [address] [place], [place], [phone] Sodium [Moles/Vol] 139 mmol/L Normal 133-145 [facility] Comment on above: Performed By: #### L 503.0106, L400.0001, L500.4050, L501.6710, L501.9187, L3300.1750, L503.6550, L101.9900, L503.6150, L501.9520, L506.1001, L506.0400, L100.0100 #### [facility] [address] [place], [place], [id number] T PROT 7.7 g/dL Normal 5.9-8.4 [facility] Comment on above: Performed By: #### L 503.0106, L400.0001, L500.4050, L501.6710, L501.9187, L3300.1750, L503.6550, L101.9900, L503.6150, L501.9520, L506.1001, L506.0400, L100.0100 #### [facility] [address] [place], [place], [id number] Urea nitrogen [Mass/Vol] 15 mg/dL Normal 4-19 [facility] Comment on above: Performed By: #### L 503.0106, L400.0001, L500.4050, L501.6710, L501.9187, L3300.1750, L503.6550, L101.9900, L503.6150, L501.9520, L506.1001, L506.0400, L100.0100 #### [facility] [address] [place], [place], [id number] Erythrocyte Sed Rateon 03-24 SED RATE 2 mm/hr Normal 0-30 [facility] Comment on above: Performed By: #### L 503.0106, L400.0001, L500.4050, L501.6710, L501.9187, L3300.1750, L503.6550, L101.9900, L503.6150, L501.9520, L506.1001, L506.0400, L100.0100 #### [facility] [address] [place], [place], [phone] (035) Estradiolon 03-24-2025 ESTRADIOL < 5.0 Normal [facility] Comment on above: Result Comment: FEMA LES ADULT FEMALE: Premenopausal: 15-350 pg/mL(E2 levels vary widely through the menstrual cycle) Postmenopausal: <10 pg/mL MILES STAGES MEAN AGE REFERENCE RANGES Stage I(>14 days and prepubertal) 7.1 years Undetectable-20 pg/mLL Stage II 10.5 years Undetectable-24 pg/mL Stage III 11.6 years Undetectable-60 pg/mL Stage IV 12.3 years 15-85 pg/mL Stage V 14.5 years 15-350 pg/mL Puberty onset (transition from Miles stage I to Miles stage II) occurs for girls at a median age of 10.5 (/- 2) years. There is evidence that it may occur up to 1 year earlier in obese girls and in girls. Progression through Miles stages is variable. Miles stage V (adult) should be reached by age 18. Performed By: #### L 503.0106, L400.0001, L500.4050, L501.6710, L501.9187, L3300.1750, L503.6550, L101.9900, L503.6150, L501.9520, L506.1001, L506.0400, L100.0100 #### [facility] [address] [place], [address] Ferritinon 03-24-2025 Ferritin [Mass/Vol] 111 ng/mL Normal 22-378 [facility] Comment on above: Performed By: #### L 503.0106, L400.0001, L500.4050, L501.6710, L501.9187, L3300.1750, L503.6550, L101.9900, L503.6150, L501.9520, L506.1001, L506.0400, L100.0100 #### [facility] [address] [place], [address] Ironon 03-24-2025 Iron [Mass/Vol] 93 ug/dL Normal 50-170 [facility] Comment on above: Performed By: #### L 503.0106, L400.0001, L500.4050, L501.6710, L501.9187, L3300.1750, L503.6550, L101.9900, L503.6150, L501.9520, L506.1001, L506.0400, L100.0100 #### [facility] [address] [place], [address] L501.9187on 03-24-2025 T3 Total 1.01 ng/mL Normal 0.80-2.00 [facility] Comment on above: Performed By: #### L 503.0106, L400.0001, L500.4050, L501.6710, L501.9187, L3300.1750, L503.6550, L101.9900, L503.6150, L501.9520, L506.1001, L506.0400, L100.0100 #### [facility] [address] [place], [address] Shoulder min 2 Viewson 03-24 Shoulder min 2 Views [facility] Imaging Services [address] [place] [address] Shoulder min 2 Views MR#: [id number] Acct: [id number] Name: MADISON DELACRUZ Rep #: [id number] : 1970 F 55 From: Tammie Cruz MD PCP: Dr. Scout Madrigal MD Status: DEP AMB Study: Shoulder min 2 Views Date of Exam: 03/24/25 Exam# [id number] Ordering Dr: Alma Trevino DO PROCEDURE: SHOULDER MIN 2 VIEWS 03/24/2025 REASON FOR EXAM: RIGHT SHOULDER PAIN TECHNIQUE: Procedure Code: RADSH Modality: DX Procedure: SHOULDER MIN 2 VIEWS Laterality: Right COMPARISON: None. FINDINGS: BONES: No acute fracture or focal osseous lesion. JOINTS: No dislocation. The joint spaces are normal. SOFT TISSUES: The soft tissues are unremarkable. RAD/Shoulder min 2 Views IMPRESSION: No acute findings. Reading Location: [id number] CC: Dr. Alma Trevino DO; Dr. Scout Madrigal MD Room Attendants: Signed Normal [facility] T4 Free Directon 03-24-2025 T4 FREE DIRECT 1.20 ng/dL Normal 0.76-1.46 [facility] Comment on above: Order Comment: N Performed By: #### L 503.0106, L400.0001, L500.4050, L501.6710, L501.9187, L3300.1750, L503.6550, L101.9900, L503.6150, L501.9520, L506.1001, L506.0400, L100.0100 #### [facility] [address] [place], [place], [id number] Thyroid Stim Hormone (TSH)on 03-24-2025 TSH 2.320 uIU/mL Normal 0.300-4.200 [facility] Comment on above: Performed By: #### L 503.0106, L400.0001, L500.4050, L501.6710, L501.9187, L3300.1750, L503.6550, L101.9900, L503.6150, L501.9520, L506.1001, L506.0400, L100.0100 #### [facility] [address] [place], [place], [id number] Urinalysis, Completeon 03-24 EPI,SQUAMOUS 0-5 SEEN Normal 5-10 [facility] Comment on above: Order Comment: CLEAN CATCH Performed By: #### L 503.0106, L400.0001, L500.4050, L501.6710, L501.9187, L3300.1750, L503.6550, L101.9900, L503.6150, L501.9520, L506.1001, L506.0400, L100.0100 #### [facility] [address] [place], [place], [phone] (473) RBC 0-5 SEEN Normal 0-5 [facility] Comment on above: Order Comment: CLEAN CATCH Performed By: #### L 503.0106, L400.0001, L500.4050, L501.6710, L501.9187, L3300.1750, L503.6550, L101.9900, L503.6150, L501.9520, L506.1001, L506.0400, L100.0100 #### [facility] [address] [place], [place], [id number] (003) WBC 0-5 SEEN Normal 0-5 [facility] Comment on above: Order Comment: CLEAN CATCH Performed By: #### L 503.0106, L400.0001, L500.4050, L501.6710, L501.9187, L3300.1750, L503.6550, L101.9900, L503.6150, L501.9520, L506.1001, L506.0400, L100.0100 #### [facility] [address] [place], [place], [phone] (779) BACTERIA 0 SEEN Normal None Seen [facility] Comment on above: Order Comment: CLEAN CATCH Performed By: #### L 503.0106, L400.0001, L500.4050, L501.6710, L501.9187, L3300.1750, L503.6550, L101.9900, L503.6150, L501.9520, L506.1001, L506.0400, L100.0100 #### [facility] [address] [place], [place], [phone] Mucus Ql (Urine sed) 0 SEEN Normal [facility] Comment on above: Order Comment: CLEAN CATCH Performed By: #### L 503.0106, L400.0001, L500.4050, L501.6710, L501.9187, L3300.1750, L503.6550, L101.9900, L503.6150, L501.9520, L506.1001, L506.0400, L100.0100 #### [facility] [address] [place], [place], [phone] (919) Vitamin B12on 03-24-2025 Cobalamin (Vitamin B12) [Mass/Vol] 516 pg/mL Normal 180-914 [facility] Comment on above: Performed By: #### L 503.0106, L400.0001, L500.4050, L501.6710, L501.9187, L3300.1750, L503.6550, L101.9900, L503.6150, L501.9520, L506.1001, L506.0400, L100.0100 #### [facility] [address] [place], [place], [phone] (904) Vitamin D,25 Hydroxyon 03-24 Vitamin D 25-OH 34.9 ng/mL Normal 30-100 [facility] Comment on above: Result Comment: Aisha min D Status Deficiency: <20 ng/mL (50nmol/L) Insufficiency: 20-30 ng/mL (50-75 nmol/L) Sufficiency: 30-100 ng/mL (75-250 nmol/L) Toxicity: >100 ng/mL (>250 nmol/L) Performed By: #### L 503.0106, L400.0001, L500.4050, L501.6710, L501.9187, L3300.1750, L503.6550, L101.9900, L503.6150, L501.9520, L506.1001, L506.0400, L100.0100 #### [facility] [address] [place], [address] CNOVon 11-05-2024 [facility] Office Visit (FPWADS ) MADISON DELACRUZ ([id number]) 1970 F Date Time Provider Department 11/05/24 4:20 PM KATHY MADRIGAL FPWADS During your visit today, we recorded the following information about you: Pulse Blood pressure Weight Height 58/minute 108/70 68 kg 1.645 m Kathy Madrigal MD 11/05/2024 5:23 PM Signed Subjective Madison Delacruz is a 54-year-old female with a history of hypothyroidism, anxiety, and allergies, presenting for right shoulder pain. Right Shoulder Pain: - Onset a few months ago. - Initially noticed when sleeping on her stomach with her arm under her shoulder. - Pain is provoked by certain movements, such as stretching, pulling, or pushing. - Denies constant pain; no pain at rest. - No known trauma or injury. - Has been taking ibuprofen PRN at night with some relief. Hypothyroidism: - Currently taking levothyroxine 125 mcg daily. Anxiety: - Managed with citalopram and buspirone. Allergies: - Taking Singulair. Head: (+) headaches Musculoskeletal: (+) right shoulder pain with movement, (+) back tightness Objective Blood pressure 108/70, pulse (!) 58, height 164.5 cm (5' 4.76), weight 68 kg (149 lb 14.6 oz), last menstrual period 07/19/2013, SpO2 98%. General: No acute distress. MSK/Ext: Right shoulder pain with certain movements; no tenderness to palpation over shoulder; pain elicited with abduction and elevation; minimal discomfort with adduction; weakness noted. Assessment AND Plan 1. Shoulder strain, right, initial encounter (G91.116U) - Right shoulder pain with certain movements, no specific injury reported; pain localized to the joint area. - Differential diagnoses include bursitis and rotator cuff strain; arthritis less likely given the timeline. - Advised immediate imaging as X-ray unlikely to provide significant diagnostic value. - Recommended Aleve 1 pill BID with food for 10-14 days to reduce inflammation. - Provided handouts with range of motion exercises to prevent stiffness and promote healing. - If no improvement after 2 weeks, consider referral to physical therapy. 2. Seasonal allergic rhinitis, unspecified trigger (J30.2) - Managed with Singulair; continue current regimen. 3. Acquired hypothyroidism (E03.9) - Stable on levothyroxine 125 mcg daily. - Continue current dosage. 4. Mixed anxiety and depressive disorder (F41.8) - Stable on citalopram and buspirone; continue current medications. Recording using [employer] software for draft documentation of the visit was discussed with the patient/authorized manufacturing sales representative; all questions welcomed and answered. Patient/authorized manufacturing sales representative agreed to proceed Kathy Madrigal MD Allergies As of Date: 11/05/2024 Noted Allergy Reaction BEES 02/18/2008 3 - Cough 4 - Hives ERYTHROMYCIN 02/18/2008 4 - Hives KIWI 02/18/2008 Comments: Scratchy throat Date Reviewed: 11/05/2024 Reviewed by: Lamont Grewal LPN - Fully Assessed Primary Visit Diagnosis:Shoulder strain, right, initial encounter [S46.911A] Other Visit Diagnoses:Seasonal allergic rhinitis, unspecified trigger [J30.2] Acquired hypothyroidism [E03.9] Mixed anxiety and depressive disorder [F41.8] Prescriptions as of 11/05/2024 - levothyroxine (SYNTHROID) 125 mcg tablet Take 1 tablet by mouth once daily. - busPIRone (BUSPAR) 10 mg tablet TAKE 1 TABLET BY MOUTH THREE TIMES A DAY NEEDED - estradiol 4 mcg vaginal suppository maintenance pack (IMVEXXY) Use 1 Suppository vaginally two times a week. - lisinopril (ZESTRIL) 10 mg tablet Take 1 tablet by mouth once daily. - montelukast (SINGULAIR) 10 mg tablet Take 1 tablet by mouth daily at bedtime. - EPINEPHrine (EPIPEN) 0.3 mg/0.3 mL auto-injector As instructed, when needed - citalopram (CELEXA) 20 mg tablet Take 1.5 tablets by mouth once daily. - folic acid-Vit B6-Vit B12 (FOLBIC) 2.5-25-2 mg tab Take 1 tablet by mouth once daily. - meclizine (ANTIVERT) 25 mg tab Take 1 tablet by mouth three times daily as needed (dizziness). - fluticasone (FLONASE) 50 mcg/actuation nasal spray USE 2 SPRAYS IN EACH NOSTRIL ONCE DAILY. - Melatonin 5 mg tab Take 1 tablet by mouth daily at bedtime. Problem List As Of Date 11/05/2024 Noted Resolved Acquired hypothyroidism [E03.9] Allergic rhinitis [J30.9] Migraine headache [G43.909] Family History of Ischemic Heart Disease [Z82.4*03/18/2009 Routine gynecological examination [Z01.419] 08/25/2009 09/22/2016 Class: Chronic Hypertension [I10] 07/24/2013 Mixed anxiety and depressive disorder [F41.8] 05/22/2014 Bee sting allergy [Z91.030] 08/20/2014 PTSD (post-traumatic stress disorder) [F43.10] 01/13/2016 Genital atrophy of female [N94.9] 09/11/2016 Recurrent vaginitis [N76.0] 09/11/2016 Abnormal perimenopausal bleeding [N92.4] 09/17/2016 HUS (hemolytic uremic syndrome) (HCC) [D59.30] 05/14/2011 Rosacea [L71.9] (more content not included)... Normal [facility] CNOVon 04-28-2024 [facility] Office Visit (OBGYWM ) MADISON DELACRUZ ([id number]) 1970 F Date Time Provider Department 04/28/24 2:20 PM JORGE BARRETO OBCHRISWShagufta During your visit today, we recorded the following information about you: Blood pressure Weight Height 110/70 67.8 kg 1.645 m Jorge Barreto MD 04/28/2024 3:19 PM Signed [employer] offered: Patient declines. Madison is a 54 year old who presents for an annual gynecologic exam without complaints. Desires refill of Imvexxy. Postmenopausal: Yes HRT use: Yes, Imvexxy Last Pap: 02/20/2022 normal HPV: 02/16/2022 negative History of abnormal pap: No Last mammogram: 2023 normal History of abnormal mammogram: No Sexually active: Yes Colonoscopy 2020 OB History T2 L3 SAB2 IAB0 Ectopic0 Multiple1 Live Births3 Comment: Invitro fertilization Twin boys, dtr Compliance And Control Analyst History LMP: 07/19/2013, Postmenopausal Age at Menarche: Age at First : Age at Menopause: Compliance And Control Analyst History Comments: Sexual Activity: Yes; Male Contraception: None PAST MEDICAL HISTORY Diagnosis Date Allergic rhinitis, cause unspecified History of transfusion 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 Hypertension Migraine, unspecified, without mention of intractable migraine without mention of status migrainosus has 0-3 per month Mixed anxiety and depressive disorder Unspecified hypothyroidism 2007 Dr. Maurer PAST SURGICAL HISTORY Procedure Laterality Date ABDOMINAL SURGERY HX SECTION HX 03/2011 COLONOSCOPY FLX DX W/COLLJ SPEC WHEN PFRMD 05/11/2021 repeat in 5 years EXTRACTION, ERUPTED TOOTH OR EXPOSED ROOT (ELEVATION AND/OR FORCEPS REMOVAL) 1997 FAMILY HISTORY Problem Relation Age of Onset Coronary Artery Disease Father CABG twice - first age 55 other (leukemia) Father AML(?) - age 78 Diabetes Mother age 72 - diet controlled Coronary Artery Disease Mother [place] age 73 Stroke Paternal Uncle age 60 Cancer Maternal Aunt in 30's - colon? SOCIAL HISTORY Social History Tobacco Use Smoking status: Never Smokeless tobacco: Never Vaping Use Vaping status: Never Used Substance Use Topics Alcohol use: Yes Comment: occasional Drug use: No REVIEW OF SYSTEMS Abdomen: No abdominal pain, nausea, vomiting, diarrhea, or constipation. No bloating, early satiety, indigestion, or increased flatulence. Bladder: No dysuria, gross hematuria, urinary frequency, urinary urgency, or incontinence Breast: No breast lumps, nipple d/c, overlying skin changes, redness or skin retraction Allergies and current medication updated:Yes SENSITIVE EXAM: The sensitive examination was discussed with the Patient or Patient's Authorized Fitness Sales Consultant. As applicable, any other physician, advance practice provider, medical student, or other health professional student that will be observing or involved in the sensitive examination for educational or training purposes was discussed with the Patient or Authorized Fitness Sales Consultant. The Patient or Authorized Fitness Sales Consultant has agreed to proceed with the sensitive examination. (Sensitive examination includes inspection and/or palpation of the breasts, pelvis, prostate and anorectal regions). EXAM: BP 110/70 Ht 5' 4.764 (1.65m) Wt 149 lb 6.4 oz (67.8kg) LMP 07/19/2013 BMI 25.04 kg/(m2). GENERAL: pleasant, female in no apparent distress HEENT: Normocephalic and atraumatic NECK: full range of motion DERMATOLOGY: Normal, without lesions, non-icteric, and non-hirsute BREAST: soft, non-tender, symmetric, no dominant mass, normal nipple-areolar complex, no lymphadenopathy, and no nipple discharge CHEST: Normal inspiratory effort ABDOMEN: soft, non-tender, and no masses PELVIC: external genitalia normal, normal Bartholin's glands, urethra, Ashaway's glands, no vulvar lesions, no cervical lesions, good vaginal support, physiologic discharge present, normal appearing perineal body and perianal region, vaginal atrophy noted BIMANUAL: uterus normal size, shape and consistency, no adnexal masses, and non-tender RECTOVAGINAL: deferred. NEURO: exam grossly non-focal EXTREMITIES: normal ASSESSMENT/PLAN: 1) Health maintenance: Pap/HPV up to date. Mammogram up to date Nutrition, exercise and routine health maintenance exams reviewed. Colon cancer screening: up to date with screening TSH/lipids/glucose: followed by PCP 2) Follow up one year or sooner as needed Jorge Barreto DO Allergies As of Date: 04/28/2024 Noted Allergy Reaction BEES 02/18/2008 3 - Cough 4 - Hives ERYTHROMYCIN 02/18/2008 4 - Hives KIWI 02/18/2008 Comments: Scratchy throat Date Reviewed: 04/28/2024 Reviewed by: Lo Herrmann MA - Fully Assessed Reason for Visit: Well Woman [1463] Primary Visit Diagnosis:Encounter for gynecological examination (general) (rout (more content not included)... Normal [facility] SCREENINGon 03-26-2024 SURYA SCREENING * * *Final Report* * * DATE OF EXAM: Mar 26 2024 7:29AM [facility] 0581 - SURYA SCREENING / PROCEDURE REASON: Encounter for screening mammogram for breast cancer * * * * Physician Interpretation * * * * RESULT: [facility] [address] [id number] HISTORY: Patient is 54 years old and is seen for screening and is asymptomatic in both breasts. Patient states no personal history of breast cancer. Patient states no personal history of other cancers. COMPARISON STUDIES: The present examination has been compared to prior imaging studies dated 07/09/2019 (mammogram), 12/24/2020 (mammogram), 12/16/2021 (mammogram) and 03/05/2023 (mammogram). MAMMOGRAM TECHNIQUE: The study was acquired using full field digital technology and interpreted from soft copy. Digital Breast Tomosynthesis (DBT) images were obtained and used to assist in the interpretation of this examination. Computer-aided detection was utilized by the radiologist in the interpretation of this examination. MAMMOGRAM FINDINGS: There are scattered areas of fibroglandular density. No suspicious masses, calcifications or other abnormalities are seen in either breast. There are no significant changes from the prior study. IMPRESSION: There is no mammographic evidence of malignancy in either breast. Routine screening mammogram is recommended. Annual mammogram will be due in 1 year. BI-RADS Category 1: Negative RISK: Based on the Tyrer-Cuzick (TC) risk assessment model, this patient has a 5.2% lifetime risk of developing breast cancer, meaning they are at average risk for developing breast cancer. However, this is only an estimate based on available history provided on the patient's questionnaire. We encourage all patients to talk with their providers about these results, further recommendations for managing breast health, and appropriate supplemental screening options if the patient has dense breast tissue. Interpreting Radiologist: Wen Easley M.D. Electronically signed on: 03/26/2024 Room Attendants: GUSTAVO Transcribe Date/Time: Mar 26 2024 7:21A Dictated by: BEATRIZ CANCHOLA DO This examination was interpreted and the report reviewed and electronically signed by: WEN EASLEY MD on Mar 26 2024 10:11PM EST [id number] Normal [facility] Breast Screeningon 2023 IMPRESSION: There is no mammographic evidence of malignancy in either breast. Routine screening mammogram is recommended. Annual mammogram will be due in 1 year. BI-RADS Category 1: Negative RISK: Based on the Tyrer-Cuzick (TC) risk assessment model, this patient has a 5.2% lifetime risk of developing breast cancer, meaning they are at average risk for developing breast cancer. However, this is only an estimate based on available history provided on the patient's questionnaire. We encourage all patients to talk with their providers about these results, further recommendations for managing breast health, and appropriate supplemental screening options if the patient has dense breast tissue. Interpreting Radiologist: Wen Easley M.D. Electronically signed on: 03/26/2024 Room Attendants: GUSTAVO Transcribe Date/Time: Mar 26 2024 7:21A Dictated by: BEATRIZ CANCHOLA DO This examination was interpreted and the report reviewed and electronically signed by: WEN EASLEY MD on Mar 26 2024 10:11PM [facility] DIVISION OF RADIOLOGY * * *Final Report* * * DATE OF EXAM: Mar 26 2024 7:29AM [facility] 0581 - SURYA SCREENING / PROCEDURE REASON: Encounter for screening mammogram for breast cancer * * * * Physician Interpretation * * * * RESULT: [place] [address] HISTORY: Patient is 54 years old and is seen for screening and is asymptomatic in both breasts. Patient states no personal history of breast cancer. Patient states no personal history of other cancers. COMPARISON STUDIES: The present examination has been compared to prior imaging studies dated 07/09/2019 (mammogram), 12/24/2020 (mammogram), 12/16/2021 (mammogram) and 03/05/2023 (mammogram). MAMMOGRAM TECHNIQUE: The study was acquired using full field digital technology and interpreted from soft copy. Digital Breast Tomosynthesis (DBT) images were obtained and used to assist in the interpretation of this examination. Computer-aided detection was utilized by the radiologist in the interpretation of this examination. MAMMOGRAM FINDINGS: There are scattered areas of fibroglandular density. No suspicious masses, calcifications or other abnormalities are seen in either breast. There are no significant changes from the prior study. DIVISION OF RADIOLOGY Provider, [facility] - 03/26/2024 * * *Final Report* * * DATE OF EXAM: Mar 26 2024 7:29AM [facility] 0581 - SURYA SCREENING / PROCEDURE REASON: Encounter for screening mammogram for breast cancer * * * * Physician Interpretation * * * * RESULT: [place] [address] HISTORY: Patient is 54 years old and is seen for screening and is asymptomatic in both breasts. Patient states no personal history of breast cancer. Patient states no personal history of other cancers. COMPARISON STUDIES: The present examination has been compared to prior imaging studies dated 07/09/2019 (mammogram), 12/24/2020 (mammogram), 12/16/2021 (mammogram) and 03/05/2023 (mammogram). MAMMOGRAM TECHNIQUE: The study was acquired using full field digital technology and interpreted from soft copy. Digital Breast Tomosynthesis (DBT) images were obtained and used to assist in the interpretation of this examination. Computer-aided detection was utilized by the radiologist in the interpretation of this examination. MAMMOGRAM FINDINGS: There are scattered areas of fibroglandular density. No suspicious masses, calcifications or other abnormalities are seen in either breast. There are no significant changes from the prior study. IMPRESSION IMPRESSION: There is no mammographic evidence of malignancy in either breast. Routine screening mammogram is recommended. Annual mammogram will be due in 1 year. BI-RADS Category 1: Negative RISK: Based on the Tyrer-Cuzick (TC) risk assessment model, this patient has a 5.2% lifetime risk of developing breast cancer, meaning they are at average risk for developing breast cancer. However, this is only an estimate based on available history provided on the patient's questionnaire. We encourage all patients to talk with their providers about these results, further recommendations for managing breast health, and appropriate supplemental screening options if the patient has dense breast tissue. Interpreting Radiologist: Wen Easley M.D. Electronically signed on: 03/26/2024 Room Attendants: GUSTAVO Transcribe Date/Time: Mar 26 2024 7:21A Dictated by: BEATRIZ CANCHOLA, This examination was interpreted and the report reviewed and electronically signed by: WEN EASLEY MD on Mar 26 2024 10:11PM EST [facility] Radiology Study observation (narrative) [facility] MG Breast ScreeningOrdered B y: Ccf Provider on 03-26-2024 [facility] CNOVon 03-19-2024 CNOV Office Visit (FPWADS ) MADISON DELACRUZ ([id number]) 1970 F Date Time Provider Department 03/19/24 4:00 PM LORENA ZENDEJAS FPWADS During your visit today, we recorded the following information about you: Pulse Blood pressure Weight Height 53/minute 119/78 66 kg 1.651 m Lorena Zendejas APRN.[employer]IOR [employer] 03/19/2024 4:39 PM Signed This note was created using [employer]. Subjective Madison Delacruz is a 54 year old female. Patient here for well adult exam. No new concerns. HTN: taking lisinopril, BP under goal. Hypothyroid: most recent TSH within normal limits. Mood: managed on Celexa and buspar PRN The history is provided by the patient. Review of Systems Constitutional: Positive for fatigue. Negative for chills, fever and unexpected weight change. HENT: Negative for congestion, ear pain, hearing loss, rhinorrhea and sore throat. Eyes: Negative for visual disturbance. Respiratory: Negative for cough, shortness of breath and wheezing. Cardiovascular: Negative for chest pain, palpitations and leg swelling. Gastrointestinal: Negative for abdominal pain, constipation, diarrhea, nausea and vomiting. Endocrine: Negative for polydipsia and polyuria. Genitourinary: Negative for dysuria, flank pain, frequency, hematuria, pelvic pain, urgency and vaginal discharge. Musculoskeletal: Negative for back pain, joint swelling and neck pain. Skin: Negative for rash. Allergic/Immunologic: Negative for immunocompromised state. Neurological: Negative for dizziness, syncope, weakness, numbness and headaches. Hematological: Negative for adenopathy. Does not bruise/bleed easily. Psychiatric/Behavioral : Negative for dysphoric mood and sleep disturbance. The patient is not nervous/anxious. 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 Hypertension Migraine, unspecified, without mention of intractable migraine without mention of status migrainosus has 0-3 per month Mixed anxiety and depressive disorder Unspecified hypothyroidism 2007 Dr. Maurer PAST SURGICAL HISTORY Procedure Laterality Date ABDOMINAL SURGERY HX SECTION HX 03/2011 COLONOSCOPY FLX DX W/COLLJ SPEC WHEN PFRMD 05/11/2021 repeat in 5 years EXTRACTION, ERUPTED TOOTH OR EXPOSED ROOT (ELEVATION AND/OR FORCEPS REMOVAL) 1997 ALLERGIES Bees, Erythromycin, and Kiwi MEDICATIONS levothyroxine (SYNTHROID) 100 mcg tablet Take 1 tablet by mouth once daily. levothyroxine (SYNTHROID) 25 mcg tablet Take 1 tablet by mouth once daily. Take on empty stomach. For Thyroid. In addition to the 100 mcg dose tablet . folic acid-Vit B6-Vit B12 (FOLBIC) 2.5-25-2 mg tab Take 1 tablet by mouth once daily. meclizine (ANTIVERT) 25 mg tab Take 1 tablet by mouth three times daily as needed (dizziness). fluticasone (FLONASE) 50 mcg/actuation nasal spray USE 2 SPRAYS IN EACH NOSTRIL ONCE DAILY. Melatonin 5 mg tab Take 1 tablet by mouth daily at bedtime. lisinopril (ZESTRIL) 10 mg tablet Take 1 tablet by mouth once daily. montelukast (SINGULAIR) 10 mg tablet Take 1 tablet by mouth daily at bedtime. EPINEPHrine (EPIPEN) 0.3 mg/0.3 mL auto-injector As instructed, when needed citalopram (CELEXA) 20 mg tablet Take 1.5 tablets by mouth once daily. busPIRone (BUSPAR) 10 mg tablet Take 1 tablet by mouth three times a day as needed. naproxen (NAPROSYN) 500 mg tablet Take 1 tablet by mouth two times a day as needed (for pain/inflammation). Take with food. estradiol 4 mcg vaginal suppository maintenance pack (IMVEXXY) Use 1 Suppository vaginally two times a week. FAMILY HISTORY Problem Relation Age of Onset Coronary Artery Disease Father CABG twice - first age 55 other (leukemia) Father AML(?) - age 78 Diabetes Mother age 72 - diet controlled Coronary Artery Disease Mother [place] age 73 Stroke Paternal Uncle age 60 Cancer Maternal Aunt in 30's - colon? Social History Tobacco Use Smoking status: Never Smokeless tobacco: Never Vaping Use Vaping status: Never Used Substance Use Topics Alcohol use: Yes Comment: occasional Drug use: No Objective BP 119/78 Pulse (!) 53 Ht 165.1 cm (5' 5) Wt 66 kg (145 lb 8.1 oz) LMP 07/19/2013 SpO2 98% BMI 24.21 kg/m? Physical Exam Vitals and nursing note reviewed. Constitutional: Appearance: She is well-developed. She is not ill-appearing. HENT: Right Ear: Tympanic membrane and ear canal normal. Left Ear: Tympanic membrane and ear canal normal. Mouth/Throat: Mouth: Mucous membranes are moist. Pharynx: Uvula midline. Eyes: Conjunctiva/sclera: Conjunctivae normal. Pupils: Pupils are equal, round, and reactive to light. Neck: Thyroid: No thyromegaly. Cardiovascular: Rate and Rhythm: Normal rate and regular rhythm. Heart sounds: Normal h (more content not included)... Normal [facility] Basic metabolic 2000 panelon 03-15-2024 Anion gap [Moles/Vol] 11 mmol/L Normal 8-15 [facility] Comment on above: Order Comment: Speci john Type: BLOOD SPECIMEN Ordering Facility: [facility] Address: [address] [place] [address] Performed By: #### 3 016-3, 57887-8 #### [facility] CLIA [id number] [address] [place], [place] [address] [address] [place] Calcium [Mass/Vol] 9.6 mg/dL Normal 8.5-10.2 [facility] Comment on above: Order Comment: Speci men Type: BLOOD SPECIMEN Ordering Facility: [facility] Address: [address] [place] [address] Performed By: #### 3 016-3, 26309-6 #### [facility] CLIA [id number] [address] [place] [address] [place] Chloride [Moles/Vol] 102 mmol/L Normal 98-107 [facility] Comment on above: Order Comment: Speci men Type: BLOOD SPECIMEN Ordering Facility: [facility] Address: [address] [place] [address] Performed By: #### 3 016-3, 33978-8 #### [facility] CLIA [id number] [address] [place] [address] [place] CO2 [Moles/Vol] 26 mmol/L Normal 22-30 [facility] Comment on above: Order Comment: Barneyi men Type: BLOOD SPECIMEN Ordering Facility: [facility] Address: [address] [place] [address] Performed By: #### 3 016-3, 79148-8 #### [facility] CLIA [id number] [address] [place] [address] [place] Creatinine [Mass/Vol] 0.91 mg/dL Normal 0.58-0.96 [facility] Comment on above: Order Comment: Speci men Type: BLOOD SPECIMEN Ordering Facility: [facility] Address: [address] [place] [address] Performed By: #### 3 016-3, 68272-3 #### [facility] CLIA [id number] [address] [place] [address] [place] Creatinine and Glomerular filtration rate.predicted panel (S/P/Bld) 75 mL/min/1.73m??? Normal >=60 [facility] Comment on above: Order Comment: Speci men Type: BLOOD SPECIMEN Ordering Facility: [facility] Address: [address] [place] [address] Result Comment: Alexandra mated Glomerular Filtration Rate (eGFR) is calculated using the 2020 CKD-EPI creatinine equation. This equation utilizes serum creatinine, sex, and age as parameters. The creatinine assay has traceable calibration to isotope dilution-mass spectrometry. Refer to KDIGO guidelines for clinical interpretation. In patients with unstable renal function, e.g. those with acute kidney injury, the eGFR may not accurately reflect actual GFR. Performed By: #### 3 016-3, 17240-3 #### [facility] CLIA [id number] [address] [place] [address] [place] Glucose [Mass/Vol] 78 mg/dL Normal 74-99 [facility] Comment on above: Order Comment: Courtney lopez Type: BLOOD SPECIMEN Ordering Facility: [facility] Address: [address] [place] [address] Result Comment: The [place] Diabetes Association (ADA) provides guidance for cutoff values for fasting glucose and random glucose. The ADA defines fasting as no caloric intake for at least 8 hours. Fasting plasma glucose results between 100 to 125 mg/dL indicate increased risk for diabetes (prediabetes). Fasting plasma glucose results greater than or equal to 126 mg/dL meet the criteria for diagnosis of diabetes. In the absence of unequivocal hyperglycemia, results should be confirmed by repeat testing. In a patient with classic symptoms of hyperglycemia or hyperglycemic crisis, random plasma glucose results greater than or equal to 200 mg/dL meet the criteria for diagnosis of diabetes. Reference: Standards of Medical Care in Diabetes 2016, [place] Diabetes Association. Diabetes Care. 2016.39(Suppl 1). Performed By: #### 3 016-3, 23834-4 #### [facility] CLIA [id number] [address] [place] [address] [place] Potassium [Moles/Vol] 4.3 mmol/L Normal 3.7-5.1 [facility] Comment on above: Order Comment: Courtney lopez Type: BLOOD SPECIMEN Ordering Facility: [facility] Address: [address] [place] [address] Performed By: #### 3 016-3, 72695-4 #### [facility] CLIA [id number] [address] [place] [address] [place] Sodium [Moles/Vol] 139 mmol/L Normal 136-144 [facility] Comment on above: Order Comment: Courtney lopez Type: BLOOD SPECIMEN Ordering Facility: [facility] Address: [address] [place] [address] Performed By: #### 3 016-3, 35370-5 #### [facility] CLIA [id number] [address] [place] [address] [place] Urea nitrogen [Mass/Vol] 17 mg/dL Normal 7-21 [facility] Comment on above: Order Comment: Speci men Type: BLOOD SPECIMEN Ordering Facility: [facility] Address: [address] [place] [address] Performed By: #### 3 016-3, 44819-5 #### [facility] CLIA [id number] [address] [place] [address] [place] TSH SerPl-aCncon 03-15-2024 TSH Qn 2.660 m[IU]/L Normal 0.270-4.200 [facility] Comment on above: Order Comment: Speci men Type: BLOOD SPECIMEN Ordering Facility: [facility] Address: [address] [place] [address] Performed By: #### 3 016-3, 68182-7 #### [facility] CLIA [id number] [address] [place] [address] [place] XR Ribs - right Views and Ch est PAon 05-05-2023 IMPRESSION: No evidence of acute right rib fracture. Room Attendants: REZA Transcribe Date/Time: May 05 2023 10:23A Dictated by : YANNI MELLO MD This examination was interpreted and the report reviewed and electronically signed by: YANNI MELLO MD on May 05 2023 10:24AM EST DIVISION OF RADIOLOGY * * *Final Report* * * DATE OF EXAM: May 05 2023 10:00AM WOX [id number] - XR RIB/CHST 3V AP RIB/OBL/CHST R / PROCEDURE REASON: multiple diagnoses * * * * Physician Interpretation * * * * XR RIB/CHST 3V AP RIB/OBL/CHST R EXAM DATE/TIME: 05/05/2023 10:00 AM COMPARISON: None. CLINICAL INDICATION/HISTORY: Rib pain. TECHNIQUE: AP views centered high and low and oblique view of right ribs are presented for interpretation. PA view of the chest is also present. FINDINGS: There is no evidence of acute right rib fracture. There is no pneumothorax or pleural effusion. The underlying visualized lungs appear normal. DIVISION OF RADIOLOGY Provider, [facility] - 05/05/2023 * * *Final Report* * * DATE OF EXAM: May 05 2023 10:00AM [facility]OX 5244 - XR RIB/CHST 3V AP RIB/OBL/CHST R / PROCEDURE REASON: multiple diagnoses * * * * Physician Interpretation * * * * XR RIB/CHST 3V AP RIB/OBL/CHST R EXAM DATE/TIME: 05/05/2023 10:00 AM COMPARISON: None. CLINICAL INDICATION/HISTORY: Rib pain. TECHNIQUE: AP views centered high and low and oblique view of right ribs are presented for interpretation. PA view of the chest is also present. FINDINGS: There is no evidence of acute right rib fracture. There is no pneumothorax or pleural effusion. The underlying visualized lungs appear normal. IMPRESSION IMPRESSION: No evidence of acute right rib fracture. Room Attendants: PSCB Transcribe Date/Time: May 05 2023 10:23A Dictated by : YANNI MELLO MD This examination was interpreted and the report reviewed and electronically signed by: YANNI MELLO MD on May 05 2023 10:24AM EST [facility] Radiology Study observation (narrative) [facility] XR Ribs - right Views and Ch est PAOrdered By: Ccf Provider on 05-05-2023 [facility] XR CHEST 2V FRONTAL/LATon [facility] XR Chest PA and Lateralon IMPRESSION: No acute radiographic abnormality. Room Attendants: PSCB Transcribe Date/Time: Apr 20 2023 9:37A Dictated by : IRIS YIP MD This examination was interpreted and the report reviewed and electronically signed by: IRIS YIP MD on Apr 20 2023 9:37AM EST DIVISION OF RADIOLOGY * * *Final Report* * * DATE OF EXAM: Apr 20 2023 9:33AM WOX [id number] - XR CHEST 2V FRONTAL/LAT / PROCEDURE REASON: Persistent cough for 3 weeks or longer * * * * Physician Interpretation * * * * EXAMINATION: CHEST RADIOGRAPH (2 VIEW FRONTAL & LATERAL) CLINICAL HISTORY: Persistent cough for 3 weeks or longer MQ: XC2_6 EXAM DATE/TIME: 04/20/2023 9:33 AM COMPARISON: No relevant prior studies available. RESULT: Lines, tubes, and devices: None. Lungs and pleura: No consolidation. No lung mass. No pleural effusion. No pneumothorax. Cardiomediastinal silhouette: Normal cardiomediastinal silhouette. Bones and soft tissues: Unremarkable. DIVISION OF RADIOLOGY Provider, [facility] - 04/20/2023 * * *Final Report* * * DATE OF EXAM: Apr 20 2023 9:33AM [facility]OX 5291 - XR CHEST 2V FRONTAL/LAT / PROCEDURE REASON: Persistent cough for 3 weeks or longer * * * * Physician Interpretation * * * * EXAMINATION: CHEST RADIOGRAPH (2 VIEW FRONTAL & LATERAL) CLINICAL HISTORY: Persistent cough for 3 weeks or longer MQ: XC2_6 EXAM DATE/TIME: 04/20/2023 9:33 AM COMPARISON: No relevant prior studies available. RESULT: Lines, tubes, and devices: None. Lungs and pleura: No consolidation. No lung mass. No pleural effusion. No pneumothorax. Cardiomediastinal silhouette: Normal cardiomediastinal silhouette. Bones and soft tissues: Unremarkable. IMPRESSION IMPRESSION: No acute radiographic abnormality. Room Attendants: PSCB Transcribe Date/Time: Apr 20 2023 9:37A Dictated by : IRIS YIP MD This examination was interpreted and the report reviewed and electronically signed by: IRIS YIP MD on Apr 20 2023 9:37AM EST [facility] Radiology Study observation (narrative) [facility] XR Chest PA and LateralOrder ed By: Cc Provider on 04-20-2023 [facility] SURYA SCREENINGon 03-05-2023 [facility] SURYA SCREENINGon 12-16-2021 [facility] Vital Signs Date Time Vital Sign Value Performing Clinician Yulissa perez 11-05-2024 16:24-0400 Body height 164.5 cm Kathy Madrigal MD Work Phone: [facility] 11-05-2024 16:24-0400 Body mass index (BMI) [Ratio] 25.13 kg/m2 Kathy Madrigal MD Work Phone: [facility] 11-05-2024 16:24-0400 Body weight 68 kg Kathy Madrigal MD Work Phone: [facility] 11-05-2024 16:24-0400 Diastolic blood pressure 70 mm[Hg] Kathy Madrigal MD Work Phone: [facility] 11-05-2024 16:24-0400 Heart rate 58 /min Kathy Madrigal MD Work Phone: [facility] 11-05-2024 16:24-0400 SaO2% (BldA) [Mass fraction] 98 % Kathy Madrigal MD Work Phone: [facility] 11-05-2024 16:24-0400 Systolic blood pressure 108 mm[Hg] Kathy Madrigal MD Work Phone: [facility] 04-28-2024 14:23-0500 Body height 164.5 cm Jorge Barreto MD Work Phone: [facility] 04-28-2024 14:23-0500 Body mass index (BMI) [Ratio] 25.04 kg/m2 Jorge Barreto MD Work Phone: [facility] 04-28-2024 14:23-0500 Body weight 67.77 kg Jorge Barreto MD Work Phone: [facility] 04-28-2024 14:23-0500 Diastolic blood pressure 70 mm[Hg] Jorge Barreto MD Work Phone: [facility] 04-28-2024 14:23-0500 Systolic blood pressure 110 mm[Hg] Jorge Barreto MD Work Phone: [facility] 03-19-2024 16:06-0500 Body height 165.1 cm Lorena Zendejas APRN.[employer] Work Phone: [facility] 03-19-2024 16:06-0500 Body mass index (BMI) [Ratio] 24.21 kg/m2 Lorena Zendejas [employer]ACH[employer]ER.[employer] Work Phone: [facility] 03-19-2024 16:06-0500 Body weight 66 kg Lorena Zendejas [employer] Work Phone: [facility] 03-19-2024 16:06-0500 Diastolic blood pressure 78 mm[Hg] Lorena Zendejas [employer]ER.[employer] Work Phone: [facility] 03-19-2024 16:06-0500 Heart rate 53 /min Lorena Zendejas [employer] Work Phone: [facility] 03-19-2024 16:06-0500 SaO2% (BldA) [Mass fraction] 98 % Lorena Zendejas [employer] Work Phone: [facility] 03-19-2024 16:06-0500 Systolic blood pressure 119 mm[Hg] Lorena Zendejas [employer]ER.[employer] Work Phone: [facility] 10-10-2023 16:46-0400 Body height 165.1 cm Kathy Madrigal MD Work Phone: [facility] 10-10-2023 16:46-0400 Body mass index (BMI) [Ratio] 23.11 kg/m2 Katyh Madrigal MD Work Phone: [facility] 10-10-2023 16:46-0400 Body weight 63 kg Kathy Madrigal MD Work Phone: [facility] 10-10-2023 16:46-0400 Diastolic blood pressure 73 mm[Hg] Kathy Madrigal MD Work Phone: [facility] 10-10-2023 16:46-0400 Heart rate 54 /min Kathy Madrigal MD Work Phone: [facility] 10-10-2023 16:46-0400 SaO2% (BldA) [Mass fraction] 98 % Kathy Madrigal MD Work Phone: [facility] 10-10-2023 16:46-0400 Systolic blood pressure 111 mm[Hg] Kathy Madrigal MD Work Phone: [facility] 07-16-2023 03:14-0500 Body height 165.1 cm Sleep Main Work Phone: [facility] 07-16-2023 03:14-0500 Body weight 64 kg Sleep Main Work Phone: [facility] 04-20-2023 08:48-0500 Body temperature 97 [degF] Jeanine Praisler-Wood [employer] Work Phone: [facility] 04-20-2023 08:48-0500 Body weight 63.41 kg Jeanine Praisler-Wood [employer]ER Work Phone: [facility] 04-20-2023 08:48-0500 Diastolic blood pressure 72 mm[Hg] Jeanine Praisler-Wood [employer]ER Work Phone: [facility] 04-20-2023 08:48-0500 Heart rate 57 /min Jeanine Praisler-Wood [employer]ER Work Phone: [facility] 04-20-2023 08:48-0500 Respiratory rate 18 /min Jeanine Praisler-Wood [employer]ER Work Phone: [facility] 04-20-2023 08:48-0500 SaO2% (BldA) [Mass fraction] 97 % Jeanine Praisler-Wood [employer]ER Work Phone: [facility] 04-20-2023 08:48-0500 Systolic blood pressure 104 mm[Hg] Jeanine Praisler-Wood [employer]ER Work Phone: [facility] 04-13-2022 15:40-0500 Body temperature 97 [degF] Dayan Bedolla [employer]ER Work Phone: [facility] 04-13-2022 15:40-0500 Body weight 68.67 kg Dayan Bedolla [employer]ER Work Phone: [facility] 04-13-2022 15:40-0500 Diastolic blood pressure 76 mm[Hg] Dayan Bedolla [employer]ER Work Phone: [facility] 04-13-2022 15:40-0500 Heart rate 63 /min Dayan Bedolla APRN.[employer]ER Work Phone: [facility] 04-13-2022 15:40-0500 Respiratory rate 18 /min Dayan Bedolla APRN.[employer] Work Phone: [facility] 04-13-2022 15:40-0500 SaO2% (BldA) [Mass fraction] 100 % Dayan Bedolla APRN.[employer]ER Work Phone: [facility] 04-13-2022 15:40-0500 Systolic blood pressure 128 mm[Hg] Dayan Bedolla APRN.[employer] Work Phone: [facility] 12-15-2021 08:12-0400 Body height 165.1 cm Kathy Madrigal MD Work Phone: [facility] 12-15-2021 08:12-0400 Body weight 68.95 kg Kathy Madrigal MD Work Phone: [facility] 12-15-2021 08:12-0400 Diastolic blood pressure 77 mm[Hg] Kathy Madrigal MD Work Phone: [facility] 12-15-2021 08:12-0400 Heart rate 58 /min Kathy Madrigal MD Work Phone: [facility] 12-15-2021 08:12-0400 SaO2% (BldA) [Mass fraction] 99 % Kathy Madrigal MD Work Phone: [facility] 12-15-2021 08:12-0400 Systolic blood pressure 115 mm[Hg] Kathy Madrigal MD Work Phone: [facility] Encounters Encounter Date Encounter Type Care Provider Facility Start: 03-24-2025 End: 03-24-2025 ambulatory Alma Fast Facility:[facility] Start: 11-05-2024 End: 11-05-2024 Office outpatient visit 15 minutes Kathy Madrigal MD Work Phone: Family Practice Comment on above: Shoulder strain, rig ht, initial encounter (Primary Dx); Seasonal allergic rhinitis, unspecified trigger; Acquired hypothyroidism; Mixed anxiety and depressive disorder Start: 11-05-2024 End: 11-05-2024 ambulatory KATHY MADRIGAL Facility:[facility] Start: 09-26-2024 End: 09-30-2024 ambulatory Kathy Madrigal MD Work Phone: [facility] Comment on above: 125 synthroid Start: 09-09-2024 End: 09-10-2024 Refill Lorena Zendejas APRN.[employer] Work Phone: [facility] Comment on above: Refill Request Start: 04-28-2024 End: 04-28-2024 ambulatory KATHY MADRIGAL Facility:[facility] Start: 04-28-2024 End: 04-28-2024 Patient encounter procedure Jorge Barreto MD Work Phone: OB/Gynecology Comment on above: Encounter for gyneco logical examination (general) (routine) without abnormal findings (Primary Dx); Encounter for screening mammogram for breast cancer; Vaginal atrophy Start: 04-28-2024 End: 04-28-2024 Patient encounter status Jorge Barreto MD Work Phone: [facility] Start: 04-02-2024 End: 04-03-2024 Refill Lorena Zendejas APRN.[employer] Work Phone: [facility] Comment on above: Med Change Request Start: 03-26-2024 End: 03-26-2024 ambulatory KATHY MADRIGAL Facility:[facility] Start: 03-26-2024 End: 03-26-2024 Subsequent hospital visit by physician [facility] Comment on above: Encounter for screen ing mammogram for breast cancer [Z12.31] Start: 03-19-2024 End: 03-19-2024 ambulatory LORENA ZENDEJAS Facility:[facility] Start: 03-19-2024 Encounter for genera l adult medical examination without abnormal findings LORENA ZENDEJAS [facility] Start: 03-19-2024 End: 03-19-2024 Patient encounter procedure Lorena Zendejas APRN.[employer] Work Phone: [facility] Comment on above: Well adult exam (Yessy heber Dx); Acquired hypothyroidism; Primary hypertension; Mixed anxiety and depressive disorder; Seasonal allergic rhinitis, unspecified trigger; Bee sting allergy Start: 03-19-2024 End: 03-19-2024 Patient encounter status Lorena Zendejas IESHA.[employer] OFFICER Work Phone: [facility] Work Phone: Start: 03-15-2024 End: 03-15-2024 ambulatory KATHY MADRIGAL Facility:[facility] Start: 03-04-2024 End: 03-07-2024 ambulatory Kathy Madrigal MD Work Phone: Internal Medicine [facility] [place] Start: 10-10-2023 End: 10-10-2023 Patient encounter procedure Kathy Madrigal MD Work Phone: [facility] Comment on above: Chest wall pain (Yessy heber Dx); Lipoma of anterior chest wall; Persistent cough; Acquired hypothyroidism Start: 09-18-2023 End: 09-18-2023 ambulatory Sunitha Rodgers [employer] Work Phone: Neurology Comment on above: NORMA (obstructive sle ep apnea) (Primary Dx); Excessive daytime sleepiness Start: 09-18-2023 End: 09-18-2023 Telemedicine consultation with patient Sunitha Rodgers IESHA.[employer] OFFICER Work Phone: Neurology Start: 08-22-2023 Refill Lorena SOTELO.[employer] OFFICER Work Phone: [facility] Comment on above: Refill Request Start: 08-06-2023 End: 08-06-2023 Patient encounter procedure Cathy Porter [employer] OFFIC[employer] Work Phone: Neurology Comment on above: APPOINTMENT CANCELLE D (Primary Dx) Start: 08-06-2023 End: 08-06-2023 Telemedicine consultation with patient Cathy Scottcarolyne JULIAN.S[employer] OFFICER Work Phone: [facility] Start: 08-03-2023 End: 08-03-2023 ambulatory Kathy Madrigal MD Work Phone: Family Practice Comment on above: Viral URI (Primary D x) Start: 08-03-2023 End: 08-03-2023 Telemedicine consultation with patient Kathy Madrigal MD Work Phone: [facility] Start: 07-16-2023 Chart abstracting Sleep [facility] Main Work Phone: Neurology Comment on above: PSG Check In Start: 07-10-2023 End: 07-10-2023 ambulatory Kathy Madrigal MD Work Phone: [facility] Comment on above: Chest wall pain (Yessy heber Dx); Costochondritis Start: 07-10-2023 End: 07-10-2023 Telemedicine consultation with patient Kathy Madrigal MD Work Phone: [facility] Start: 07-06-2023 Refill Lorena Viktoria A PRN.[employer]ICER Work Phone: Internal Medicine [place] Comment on above: Refill Request Start: 06-14-2023 ambulatory Kathy lawton MD Work Phone: [facility] Comment on above: Third round of cough ing Start: 05-05-2023 End: 05-05-2023 Subsequent hospital visit by physician [facility] Work Phone: Radiology Comment on above: Subacute cough [R05. 2] Start: 04-20-2023 End: 04-20-2023 Subsequent hospital visit by physician [facility] Work Phone: Radiology Comment on above: Persistent cough for 3 weeks or longer [R05.3] Start: 04-20-2023 End: 04-20-2023 Patient encounter procedure Jeanine Nunez [employer] OFFICER Work Phone: [facility] Comment on above: Persistent cough for 3 weeks or longer (Primary Dx); Sinobronchitis Start: 04-17-2023 Chart abstracting Sleep Center Main Work Phone: Neurology Start: 03-16-2023 End: 03-16-2023 ambulatory Kate Beyer MD Work Phone: Neurology Comment on above: Excessive daytime sl eepiness (Primary Dx); Fatigue, unspecified type; Daytime somnolence; Snoring Start: 03-16-2023 End: 03-16-2023 Telemedicine consultation with patient Kate Beyer MD Work Phone: [facility] Start: 03-14-2023 End: 03-14-2023 ambulatory Kathy Madrigal MD Work Phone: [facility] Comment on above: Fatigue, unspecified type (Primary Dx); Acquired hypothyroidism; Daytime somnolence Start: 03-14-2023 End: 03-14-2023 Telemedicine consultation with patient Kathy Madrigal MD Work Phone: [facility] Start: 03-07-2023 ambulatory Kathy lawton MD Work Phone: Internal Medicine [facility] Start: 03-05-2023 End: 03-05-2023 Subsequent hospital visit by physician [facility] Comment on above: Encounter for screen ing mammogram for breast cancer [Z12.31] Start: 02-15-2023 Refill Lorena GODINEZSENIOR [employer]S OFFICER Work Phone: Internal Medicine [place] Comment on above: Refill Request Start: 02-08-2023 Refill Kathy lawton MD Work Phone: [facility] Comment on above: Refill Request Start: 02-04-2023 Refill Kathy lawton MD Work Phone: [facility] Comment on above: Refill Request Start: 09-11-2022 ambulatory Kathy lawton MD Work Phone: [facility] Comment on above: Generic Singulair Start: 07-23-2022 Refill Sunitha Cavazos APRN.[employer] OFFICER Work Phone: [facility] Comment on above: Refill Request Start: 05-11-2022 ambulatory Kathy lawton MD Work Phone: [facility] Comment on above: 5th Covid Vaccine Start: 04-13-2022 End: 04-13-2022 Patient encounter procedure Dayan Bedolla APRN.[employer] OFFICER Work Phone: [facility] Comment on above: At increased risk of exposure to COVID-19 virus (Primary Dx) Start: 03-01-2022 Refill Kathy lawton MD Work Phone: [facility] Comment on above: Refill Request Start: 02-04-2022 Refill Kathy lawton MD Work Phone: [facility] Comment on above: Refill Request Start: 01-22-2022 Refill Jorge Pack Work Phone: OB/Gynecology Comment on above: Refill Request Start: 12-16-2021 Documentation procedure Mammog kellie Coordinator [facility] Start: 12-16-2021 Letter encounter Mammography Coordinator [facility] Department Start: 12-16-2021 End: 12-16-2021 Subsequent hospital visit by physician [facility] Comment on above: Encounter for screen ing mammogram for breast cancer [Z12.31] Start: 12-15-2021 End: 12-15-2021 Patient encounter procedure Kathy Madrigal MD Work Phone: [facility] Comment on above: Essential hypertensi on (Primary Dx); Acquired hypothyroidism; Mixed anxiety and depressive disorder; COVID-19 vaccine administered; Seasonal allergic rhinitis, unspecified trigger Start: 09-13-2021 End: 09-13-2021 ambulatory Kathy Madrigal MD Work Phone: [facility] Comment on above: Left sided sciatica (Primary Dx) Start: 09-13-2021 End: 09-13-2021 Telemedicine consultation with patient Kathy Madrigal MD Work Phone: [facility] Start: 09-06-2021 Refill Kathy lawton MD Work Phone: [facility] Comment on above: Refill Request Start: 02-05-2021 Telephone encounter Kathy Madrigal MD Work Phone: [facility] Comment on above: Covid Test Result Start: 08-25-2009 End: 09-22-2016 Patient encounter status Sunitha Rodgers [employer]IC[employer] Work Phone: [facility] Procedures Date Procedure Procedure Detail Performing Clinician Start: 03-26-2024 Screening mammograph y bi 2-view breast inc cad Jorge Barreto MD Work Phone: Start: 05-05-2023 Radex ribs uni w/posteroant ch minimum 3 views Isaura GOA Work Phone: Start: 04-20-2023 Radiologic exam ches t 2 views Jeanine Nunez [employer] OFFICER Work Phone: Start: 03-05-2023 Screening mammograph y bi 2-view breast inc cad Jorge Barreto MD Work Phone: Start: 02-14-2023 Lipid 1996 panel - S ginette or Plasma Lorena Blum [employer]ER.[employer] OFFICER Work Phone: Start: 12-16-2021 End: 12-16-2021 Screening mammography bi 2-view breast inc cad Jorge Barreto MD Work Phone: Start: 12-15-2021 PFIZER-BIONTECH COVI D-19 VACCINE, AGE 12+ YR (WHITE TOP) Kathy Madrigal MD Work Phone: Start: 05-11-2021 Colonoscopy Kathy bang MD Work Phone: Start: 12-24-2020 Mammography Kathy bang MD Work Phone: Start: 03-12-2020 Lipid 1996 panel - S ginette or Plasma Kathy Madrigal MD Work Phone: Plan of Treatment Date Care Activity Detail Author Start: 03-18-2029 Urine microalbumin profile [facility] Start: 02-15-2028 Lipid 1996 panel - Serum or Plasma Lipid Screening [facility] Start: 02-15-2028 Lipid panel Lipid Screening [facility] Start: 03-15-2027 Diabetes Screening Diabetes Screenin g [facility] Start: 02-10-2027 HPV TESTING HPV TESTING [facility] Start: 02-10-2027 PAP TESTING PAP TESTING [facility] Start: 02-10-2027 Screening for malign ant neoplasm of cervix [facility] Start: 05-11-2026 Colonoscopy COLONOSCOPY [facility] Start: 05-11-2026 COLORECTAL CANCER SCREENING COLORECTAL CANCER SCREENING [facility] Start: 05-11-2026 Screening for malign ant neoplasm of colon [facility] Start: 02-14-2026 Diabetes Screening Diabetes Screenin g [facility] Start: 11-05-2025 Annual PCP Team [employer] butch Disease Visit Annual PCP Team Chronic Disease Visit [facility] Start: 05-01-2025 End: 05-01-2025 Patient encounter procedure Mammogram Comment on above: Encounter for screen ing mammogram for breast cancer [Z12.31] Annual Start: 04-28-2025 BP Controlled (<130/80) BP Controlle d (<130/80) [facility] Start: 03-26-2025 Screening for malign ant neoplasm of breast Mammogram Screening [facility] Start: 03-19-2025 Annual PCP Team [employer] Housekeeper butch Disease Visit Annual PCP Team Chronic Disease Visit [facility] Start: 03-19-2025 BP Controlled (<130/80) BP Controlle d (<130/80) [facility] Start: 03-12-2025 Lipid 1996 panel - Serum or Plasma Lipid Screening [facility] Start: 03-12-2025 LIPID SCREEN LIPID SCREEN [facility] Start: 01-12-2025 Influenza vaccination Influenz a Vaccine (Season Ended) [facility] Start: 11-10-2024 Influenza vaccination Influenza Vacc ine (#1) [facility] Comment on above: Postponed from 01/12 (Declined at this time) Start: 10-09-2024 Annual PCP Team [employer] Housekeeper butch Disease Visit Annual PCP Team Chronic Disease Visit [facility] Start: 10-09-2024 BP Controlled (<130/80) BP Controlle d (<130/80) [facility] Start: 08-02-2024 Annual PCP Team [employer] butch Disease Visit Annual PCP Team Chronic Disease Visit [facility] Start: 07-15-2024 DIABETES SCREEN DIABETES SCREEN [facility] Start: 07-15-2024 Diabetes Screening Diabetes Screenin g [facility] Start: 07-10-2024 Annual PCP Team [employer] butch Disease Visit Annual PCP Team Chronic Disease Visit [facility] Start: 05-18-2024 BP Controlled (<130/80) BP Controlle d (<130/80) [facility] Start: 04-28-2024 End: 04-28-2024 Patient encounter procedure 04/28/2024 2:20 PM EST Office Visit OB/Gynecology [address] [id number] Jorge Barreto MD [address] [place] [id number] Annual exam and Imvexxy refill OB/Gynecology Comment on above: Annual exam and Imve xxy refill Start: 04-20-2024 BP Controlled (<130/80) BP Controlle d (<130/80) [facility] Start: 04-04-2024 End: 04-04-2024 Patient encounter procedure 04/04/2024 7:10 AM EST Appointment Mammogram [address] [id number] [id number] Mammogram Start: 03-26-2024 End: 03-26-2024 Patient encounter procedure 03/26/2024 7:30 AM EST Appointment Mammogram [address] [id number] [id number] Mammogram Start: 03-19-2024 End: 03-19-2024 Patient encounter procedure 03/19/2024 4:00 PM EST Office Visit Family Practice [address] [id number] Lorean Zendejas APRN.S[employer] [address] [id number] annual check up Family Practice Comment on above: annual check up Start: 03-14-2024 Annual PCP Team [employer] butch Disease Visit Annual PCP Team Chronic Disease Visit [facility] Start: 03-05-2024 Mammography Mammogram Screening [facility] Start: 03-05-2024 Screening for malign ant neoplasm of breast Mammogram Screening [facility] Start: 03-04-2024 End: 06-03-2024 Basic metabolic 2000 panel - Serum or Plasma BASIC METABOLIC PANEL Lab Routine Hypertension Expected: 03/04/2024, Expires: 06/03/2024 [facility] Work Phone: Comment on above: Expected: 03/04/2024 , Expires: 06/03/2024 Start: 03-04-2024 End: 06-03-2024 Thyrotropin [Units/volume] in Serum or Plasma THYROID STIMULATING HORMONE Lab Routine Acquired hypothyroidism Expected: 03/04/2024, Expires: 06/03/2024 [facility] Comment on above: Expected: 03/04/2024 , Expires: 06/03/2024 Start: 02-20-2024 Annual PCP Team [employer] butch Disease Visit Annual PCP Team Chronic Disease Visit [facility] Start: 02-20-2024 BP Controlled (<130/80) BP Controlle d (<130/80) [facility] Start: 01-13-2024 Covid-19 Vaccine () Covid-19 Vaccine () [facility] Start: 01-13-2024 Influenza vaccination Influenza Vacc ine (#1) [facility] Start: 04-25-2023 End: 07-25-2023 Thyrotropin [Units/volume] in Serum or Plasma TSH BLD Lab Routine Acquired hypothyroidism Expected: 04/25/2023, Expires: 07/25/2023 [facility] Work Phone: Comment on above: Expected: 04/25/2023 , Expires: 07/25/2023 Start: 04-25-2023 End: 07-25-2023 Thyroxine (T4) free [Mass/volume] in Serum or Plasma T4 FREE/FREE THYROX Lab Routine Acquired hypothyroidism Expected: 04/25/2023, Expires: 07/25/2023 [facility] Work Phone: Comment on above: Expected: 04/25/2023 , Expires: 07/25/2023 Start: 04-13-2023 BP CONTROLLED (<130/80) BP CONTROLLE D (<130/80) [facility] Start: 03-14-2023 End: 06-13-2023 CBC panel - Blood by Automated count CBC Lab Routine Fatigue, unspecified type Expected: 03/14/2023, Expires: 06/13/2023 [facility] Work Phone: Comment on above: Expected: 03/14/2023 , Expires: 06/13/2023 Start: 03-14-2023 End: 06-13-2023 Iron and Iron binding capacity panel - Serum or Plasma IRON + TIBC Lab Routine Fatigue, unspecified type Expected: 03/14/2023, Expires: 06/13/2023 [facility] Work Phone: Comment on above: Expected: 03/14/2023 , Expires: 06/13/2023 Start: 02-08-2023 End: 04-10-2023 Basic metabolic 2000 panel - Serum or Plasma BASIC METABOLIC PNL Lab Routine Essential hypertension Expected: 02/08/2023, Expires: 04/10/2023 [facility] Work Phone: Comment on above: Expected: 02/08/2023 , Expires: 04/10/2023 Start: 02-08-2023 End: 04-10-2023 Lipid 1996 panel - Serum or Plasma LIPID PANEL BASIC Lab Routine Screening for lipid disorders Expected: 02/08/2023, Expires: 04/10/2023 [facility] Work Phone: Comment on above: Expected: 02/08/2023 , Expires: 04/10/2023 Start: 02-08-2023 End: 04-10-2023 Thyrotropin [Units/volume] in Serum or Plasma TSH BLD Lab Routine Acquired hypothyroidism Expected: 02/08/2023, Expires: 04/10/2023 [facility] Work Phone: Comment on above: Expected: 02/08/2023 , Expires: 04/10/2023 Start: 01-12-2023 Influenza vaccination Influenza Vacc ine (#1) [facility] Start: 12-16-2022 Mammography [facility] Start: 12-15-2022 ANNUAL PCP TEAM [employer]CHANIC BUTCH DISEASE VISIT ANNUAL PCP TEAM CHRONIC DISEASE VISIT [facility] Start: 12-15-2022 BP CONTROLLED (<130/80) BP CONTROLLE D (<130/80) [facility] Start: 09-13-2022 ANNUAL PCP TEAM [employer]ET METAL MECHANIC BUTCH DISEASE VISIT ANNUAL PCP TEAM CHRONIC DISEASE VISIT [facility] Start: 06-29-2022 ANNUAL PCP TEAM AIRCRAFT SHEET METAL MECHANIC BUTCH DISEASE VISIT ANNUAL PCP TEAM CHRONIC DISEASE [facility]ISIT [facility] [facility] Start: 04-23-2022 HPV TESTING HPV TESTING [facility] Start: 04-23-2022 PAP TESTING PAP TESTING [facility] Start: 04-13-2022 End: 04-27-2022 Influenza virus A and B RNA and SARS-CoV-2 (COVID-19) N gene panel - Respiratory specimen by TESSIE with probe detection COVID WITH FLUA+B, ROUTINE Microbiology Routine At increased risk of exposure to COVID-19 virus Expected: 04/13/2022, Expires: 04/27/2022 [facility] Work Phone: Comment on above: Expected: 04/13/2022 , Expires: 04/27/2022 Start: 02-09-2022 COVID-19 VACCINE (5 - Booster for Moderna series) COVID-19 VACCINE (5 - Booster for Moderna series) [facility] Start: 02-05-2022 BP CONTROLLED (<130/80) BP CONTROLLE D (<130/80) [facility] Start: 01-12-2022 Influenza vaccination [facility] Start: 12-24-2021 Mammography MAMMOGRAM [facility] Start: 09-16-2021 FECAL OCCULT BLOOD FECAL OCCULT BLOO D [facility] Start: 09-16-2021 Screening for malign ant neoplasm of colon Fecal Occult Blood [facility] Start: 02-24-2020 Pneumococcal Vaccine : 50+ (1 of 1 - PCV) Pneumococcal Vaccine: 50+ (1 of 1 - PCV) [facility] Start: 02-24-2020 SHINGRIX VACCINE (1 of 2) SHINGRIX VACCINE (1 of 2) [facility] Start: 2015 COLOGUARD (FIT-DNA) COLOGUARD (FIT-D NA) [facility] Start: [address] COLONOGRAPHY [facility] Start: 2015 Screening for malign ant neoplasm of colon [facility] Start: 2015 SIGMOIDOSCOPY SIGMOIDOSCOPY [facility] Start: 1989 Hepatitis B Vaccine (1 of 3 - 19+ 3-dose series) Hepatitis B Vaccine (1 of 3 - 19+ 3-dose series) [facility] Start: 02-24-1988 BP CONTROLLED (<130/80) BP CONTROLLE D (<130/80) [facility] Start: 1970 HEPATITIS B (1 of 3 - 3-dose series) HEPATITIS B (1 of 3 - 3-dose series) [facility] Start: 1970 Hepatitis B Vaccine (1 of 3 - 3-dose series) Hepatitis B Vaccine (1 of 3 - 3-dose series) [facility] End: 05-28-2025 DBT Breast - bilateral screening [facility] SCREENING [facility] Radiology Routine Encounter for screening mammogram for breast cancer 1 Occurrences starting 04/28/2024 until 05/28/2025 [facility] Work Phone: Comment on above: 1 Occurrences starti ng 04/28/2024 until 05/28/2025 End: 03-15-2024 HOME SLEEP APNEA TEST (HSAT) HOME SLEEP APNEA TEST (HSAT) Procedures Routine Excessive daytime sleepiness Snoring 1 Occurrences starting 03/16/2023 until 03/15/2024 [facility] Work Phone: Comment on above: 1 Occurrences starti ng 03/16/2023 until 03/15/2024 End: 04-05-2024 SURYA SCREENING [facility] SCREENING Radiology Routine Encounter for screening mammogram for breast cancer 1 Occurrences starting 03/07/2023 until 04/05/2024 [facility] Work Phone: Comment on above: 1 Occurrences starti ng 03/07/2023 until 04/05/2024 [facility] Immunizations Immunization Date Immunization Notes Care Provider Fa cili 02-19-2023 COVID-19 vaccine, ag e 12+ yr, season ([employer]) Kathy Madrigal MD Work Phone: [facility] 02-19-2023 influenza, injectabl e, quadrivalent, contains preservative Kathy Madrigal MD Work Phone: [facility] 02-19-2023 influenza virus vaccine, unspecified formulation Xr Edmund Work Phone: [facility] 05-11-2022 COVID-19 booster vaccine, age 12+ yr, bivalent (PFIZER-BIONTECH) Kathy Madrigal MD Work Phone: [facility] 03-02-2022 influenza virus vaccine, unspecified formulation Kathy Madrigal MD Work Phone: [facility] 12-15-2021 COVID-19 vaccine, ag e 12+ yr (PFIZER-BIONTECH - WHITE TOP) Kathy Madrigal MD Work Phone: [facility] 05-19-2021 COVID-19 vaccine, ag e 12+ yr (PFIZER-BIONTECH - WHITE TOP) Kathy Madrigal MD Work Phone: [facility] Work Phone: 2020 influenza virus vaccine, unspecified formulation Kathy Madrigal MD Work Phone: [facility] 03-18-2019 tetanus and diphther ia toxoids, adsorbed, preservative free, for adult use (2 Lf of tetanus toxoid and 2 Lf of diphtheria toxoid) Kathy Madrigal MD Work Phone: [facility] 03-14-2019 influenza, injectabl e, quadrivalent, contains preservative Kathy Madrigal MD Work Phone: [facility] 03-19-2018 influenza virus vaccine, unspecified formulation Kathy Madrigal MD Work Phone: [facility] 03-19-2018 influenza, injectabl e, quadrivalent, contains preservative Kathy Madrigal MD Work Phone: [facility] 02-17-2017 influenza, seasonal, injectable Kathy Madrigal MD Work Phone: [facility] 02-09-2017 influenza, injectabl e, quadrivalent, contains preservative Kathy Madrigal MD Work Phone: [facility] 02-09-2017 influenza, injectabl e, quadrivalent, preservative free Kathy Madrigal MD Work Phone: [facility] 05-05-2016 influenza, injectabl e, quadrivalent, contains preservative Kathy Madrigal MD Work Phone: [facility] 02-22-2014 influenza virus vaccine, whole virus Kathy Madrigal MD Work Phone: [facility] 03-18-2009 tetanus toxoid, redu chi diphtheria toxoid, and acellular pertussis vaccine, adsorbed Kathy Madrigal MD Work Phone: [facility] 02-15-2009 influenza virus vaccine, unspecified formulation Kathy Madrigal MD Work Phone: [facility] Payers Date Payer Category Payer Self-pay [id number] 2017 [employer] BLUE CARD PPO OOS [id number] 2017 Unknown ANTHEM BLUE CARD PPO OOS [id number] 2017-Present [phone] [place], [place] [id number] PPO [id number] 2017 Unknown ANTHEM BLUE CARD PPO OOS [id number] 2017-Present [phone] [place] [id number] PPO [id number] 2017 Unknown [id number] Unknown [id number] Unknown [id number] Social History Date Type Detail Facility Start: 09-29-2016 End: 02-10-2022 Tobacco smoking status NHIS Never smoked tobacco [facility] Start: 02-05-2021 End: 11-05-2024 Alcohol intake Current drinker of alcohol (finding) [facility] Start: 03-16-2021 History SDOH Alcohol Frequency 4 [facility] Start: 03-10-2020 End: 03-16-2021 History SDOH Alcohol Std Drinks 1 [facility] Start: 02-18-2008 History SDOH Alcohol Comment occasional [facility] Start: 03-16-2021 History SDOH Social Connections Phone 5 [facility] Start: 03-16-2021 History SDOH Social Connections Get Together 2 [facility] Start: 03-16-2021 History SDOH Social Connections Meetings 98 [facility] Start: 03-16-2021 History SDOH Social Connections Living 3 [facility] Start: 03-10-2020 Education 17 [facility] Start: 1970 Sex Assigned At Female [facility] Start: 06-15-2021 End: 04-13-2022 Exposure to SARS-CoV-2 (event) Not sure [facility] Start: 09-29-2016 End: 02-10-2022 Tobacco use and exposure Smokeless tobacco non-user [facility] Work Phone: Start: 03-16-2021 End: 02-12-2023 History of Social function [facility] Start: 03-16-2021 End: 02-12-2023 Social connection and isolation panel [facility] Do you belong to any clubs or organizations such as uatsdin groups, unions, fraternal or athletic groups, or school groups? No [facility] How often do you att end meetings of the clubs or organizations you belong to? Patient refused [facility] Are you now , , , , never or living with a partner? [facility] How often to you hav e a drink containing alcohol? 2-3 time sa week [facility] How many standard dr inks containing alcohol do you have on a typical day? 1 or 2 [facility] How often do you hav e 6 or more drinks on 1 occasion? Never [facility] Do you feel stress - tense, restless, nervous, or anxious, or unable to sleep at night because your mind is troubled all the time - these days [OSQ] To some extent [facility] (I/We) worried wheth er (my/our) food would run out before (I/we) got money to buy more. Never true [facility] Start: 09-13-2018 Gender identity Identifies as female gender (finding) [facility] Start: 09-13-2018 Sexual orientation Heterosexual (finding) [facility] How often to you hav e a drink containing alcohol? 2-4 times a month [facility] Functional Status Date Assessment Result Facility 08-20-2014 Are you deaf, or do you have serious difficulty hearing No 08/20/2014 12:24 PM EDT August Villasenor LPN No [facility] 08-20-2014 Are you blind, or do you have serious difficulty seeing, even when wearing glasses No 08/20/2014 12:24 PM EDT August Villasenor LPN No [facility] 08-20-2014 Do you have serious difficulty walking or climbing stairs No 08/20/2014 12:24 PM EDT August Villasenor LPN No [facility] 08-20-2014 Do you have difficul ty dressing or bathing No 08/20/2014 12:24 PM EDT August Villasenor LPN No [facility] 08-20-2014 Because of a physica l, mental, or emotional condition, do you have difficulty doing errands alone such as visiting a physician's office or shopping No 08/20/2014 12:24 PM EDT August Villasenor LPN No [facility] Mental Status Date Assessment Result Facility 08-20-2014 Because of a physica l, mental, or emotional condition, do you have serious difficulty concentrating, remembering, or making decisions No 08/20/2014 12:24 PM EDT August Villasenor LPN No [facility] Clinical Notes 08-25-2009 to 11-05-2024 Kathy Madrigal MD - 11/05/2024 5:21 PM EDTTelephone Encounter - Belkis Celis LPN - 09/10/2024 8:41 AM EDTTelephone Encounter - Belkis Celis ANATOLY - 09/10/2024 8:41 AM EDTPatient Instructions Note Date & Type Note Facility 11-05-2024 Note HNO ID: [id number] Author: KATHY MADRIGAL MD Service: ? Author Type: Physician Type: Progress Notes Filed: 11/05/2024 17:23 Note Text: Subjective Madison Delacruz is a 54-year-old female with a history of hypothyroidism, anxiety, and allergies, presenting for right shoulder pain. Right Shoulder Pain: - Onset a few months ago. - Initially noticed when sleeping on her stomach with her arm under her shoulder. - Pain is provoked by certain movements, such as stretching, pulling, or pushing. - Denies constant pain; no pain at rest. - No known trauma or injury. - Has been taking ibuprofen PRN at night with some relief. Hypothyroidism: - Currently taking levothyroxine 125 mcg daily. Anxiety: - Managed with citalopram and buspirone. Allergies: - Taking Singulair. Head: (+) headaches Musculoskeletal: (+) right shoulder pain with movement, (+) back tightness Objective Blood pressure 108/70, pulse (!) 58, height 164.5 cm (5' 4.76), weight 68 kg (149 lb 14.6 oz), last menstrual period 07/19/2013, SpO2 98%. General: No acute distress. MSK/Ext: Right shoulder pain with certain movements; no tenderness to palpation over shoulder; pain elicited with abduction and elevation; minimal discomfort with adduction; weakness noted. Assessment AND Plan 1. Shoulder strain, right, initial encounter (S46.575B) - Right shoulder pain with certain movements, no specific injury reported; pain localized to the joint area. - Differential diagnoses include bursitis and rotator cuff strain; arthritis less likely given the timeline. - Advised immediate imaging as X-ray unlikely to provide significant diagnostic value. - Recommended Aleve 1 pill BID with food for 10-14 days to reduce inflammation. - Provided handouts with range of motion exercises to prevent stiffness and promote healing. - If no improvement after 2 weeks, consider referral to physical therapy. 2. Seasonal allergic rhinitis, unspecified trigger (J30.2) - Managed with Singulair; continue current regimen. 3. Acquired hypothyroidism (E03.9) - Stable on levothyroxine 125 mcg daily. - Continue current dosage. 4. Mixed anxiety and depressive disorder (F41.8) - Stable on citalopram and buspirone; continue current medications. Recording using [employer] software for draft documentation of the visit was discussed with the patient/authorized manufacturing sales representative; all questions welcomed and answered. Patient/authorized manufacturing sales representative agreed to proceed Kathy Madrigal MD [facility] 11-05-2024 History of Presen t illness Narrative Aaliyah Delacruz is a 54-year-old female with a history of hypothyroidism, anxiety, and allergies, presenting for right shoulder pain. Right Shoulder Pain: - Onset a few months ago. - Initially noticed when sleeping on her stomach with her arm under her shoulder. - Pain is provoked by certain movements, such as stretching, pulling, or pushing. - Denies constant pain; no pain at rest. - No known trauma or injury. - Has been taking ibuprofen PRN at night with some relief. Hypothyroidism: - Currently taking levothyroxine 125 mcg daily. Anxiety: - Managed with citalopram and buspirone. Allergies: - Taking Singulair. Head: (+) headaches Musculoskeletal: (+) right shoulder pain with movement, (+) back tightness Objective Blood pressure 108/70, pulse (!) 58, height 164.5 cm (5' 4.76), weight 68 kg (149 lb 14.6 oz), last menstrual period 07/19/2013, SpO2 98%. General: No acute distress. MSK/Ext: Right shoulder pain with certain movements; no tenderness to palpation over shoulder; pain elicited with abduction and elevation; minimal discomfort with adduction; weakness noted. Assessment & Plan 1. Shoulder strain, right, initial encounter (J24.326L) - Right shoulder pain with certain movements, no specific injury reported; pain localized to the joint area. - Differential diagnoses include bursitis and rotator cuff strain; arthritis less likely given the timeline. - Advised immediate imaging as X-ray unlikely to provide significant diagnostic value. - Recommended Aleve 1 pill BID with food for 10-14 days to reduce inflammation. - Provided handouts with range of motion exercises to prevent stiffness and promote healing. - If no improvement after 2 weeks, consider referral to physical therapy. 2. Seasonal allergic rhinitis, unspecified trigger (J30.2) - Managed with Singulair; continue current regimen. 3. Acquired hypothyroidism (E03.9) - Stable on levothyroxine 125 mcg daily. - Continue current dosage. 4. Mixed anxiety and depressive disorder (F41.8) - Stable on citalopram and buspirone; continue current medications. Recording using [employer] software for draft documentation of the visit was discussed with the patient/authorized manufacturing sales representative; all questions welcomed and answered. Patient/authorized manufacturing sales representative agreed to proceed Kathy Madrigal MD documented in this encounter [facility] 09-10-2024 Telephone encounter Note Prescription Refill Information The patient has been identified by name and date of : Yes Caregiver verified no other encounters exist for this prescription request: Yes Caregiver confirmed with patient/requestor that no other refills are due, in the near future, with this provider at this time: Yes The last office visit in the department: 03/19/2024 Does the patient have a future office visit with this provider/department: No Requested Prescriptions Pending Prescriptions Disp Refills busPIRone (BUSPAR) 10 mg tablet [Pharmacy Med Name: BUSPIRONE HCL 10 MG TABLET] 270 tablet 1 Sig: TAKE 1 TABLET BY MOUTH THREE TIMES A DAY NEEDED Belkis Celis LPN September 10, 2024 8:41 AM [facility] 09-10-2024 Miscellaneous Notes Prescription Refill Information The patient has been identified by name and date of : Yes Caregiver verified no other encounters exist for this prescription request: Yes Caregiver confirmed with patient/requestor that no other refills are due, in the near future, with this provider at this time: Yes The last office visit in the department: 03/19/2024 Does the patient have a future office visit with this provider/department: No Requested Prescriptions Pending Prescriptions Disp Refills busPIRone (BUSPAR) 10 mg tablet [Pharmacy Med Name: BUSPIRONE HCL 10 MG TABLET] 270 tablet 1 Sig: TAKE 1 TABLET BY MOUTH THREE TIMES A DAY NEEDED Belkis Celis LPN September 10, 2024 8:41 AM documented in this encounter [facility] 04-28-2024 Note HNO ID: [id number] Author: JORGE BARRETO MD Service: ? Author Type: Physician Type: Progress Notes Filed: 04/28/2024 15:19 Note Text: [employer] offered: Patient declines. Madison is a 54 year old who presents for an annual gynecologic exam without complaints. Desires refill of Imvexxy. Postmenopausal: Yes HRT use: Yes, Imvexxy Last Pap: 02/20/2022 normal HPV: 02/16/2022 negative History of abnormal pap: No Last mammogram: 2023 normal History of abnormal mammogram: No Sexually active: Yes Colonoscopy 2020 OB History T2 L3 SAB2 IAB0 Ectopic0 Multiple1 Live Births3 Comment: Invitro fertilization Twin boys, dtr Compliance And Control Analyst History LMP: 07/19/2013, Postmenopausal Age at Menarche: Age at First : Age at Menopause: Compliance And Control Analyst History Comments: Sexual Activity: Yes; Male Contraception: None PAST MEDICAL HISTORY Diagnosis Date Allergic rhinitis, cause unspecified History of transfusion 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 Hypertension Migraine, unspecified, without mention of intractable migraine without mention of status migrainosus has 0-3 per month Mixed anxiety and depressive disorder Unspecified hypothyroidism 2007 Dr. Maurer PAST SURGICAL HISTORY Procedure Laterality Date ABDOMINAL SURGERY HX SECTION HX 03/2011 COLONOSCOPY FLX DX W/COLLJ SPEC WHEN PFRMD 05/11/2021 repeat in 5 years EXTRACTION, ERUPTED TOOTH OR EXPOSED ROOT (ELEVATION AND/OR FORCEPS REMOVAL) 1997 FAMILY HISTORY Problem Relation Age of Onset Coronary Artery Disease Father CABG twice - first age 55 other (leukemia) Father AML(?) - age 78 Diabetes Mother age 72 - diet controlled Coronary Artery Disease Mother [place] age 73 Stroke Paternal Uncle age 60 Cancer Maternal Aunt in 30's - colon? SOCIAL HISTORY Social History Tobacco Use Smoking status: Never Smokeless tobacco: Never Vaping Use Vaping status: Never Used Substance Use Topics Alcohol use: Yes Comment: occasional Drug use: No REVIEW OF SYSTEMS Abdomen: No abdominal pain, nausea, vomiting, diarrhea, or constipation. No bloating, early satiety, indigestion, or increased flatulence. Bladder: No dysuria, gross hematuria, urinary frequency, urinary urgency, or incontinence Breast: No breast lumps, nipple d/c, overlying skin changes, redness or skin retraction Allergies and current medication updated:Yes SENSITIVE EXAM: The sensitive examination was discussed with the Patient or Patient's Authorized Fitness Sales Consultant. As applicable, any other physician, advance practice provider, medical student, or other health professional student that will be observing or involved in the sensitive examination for educational or training purposes was discussed with the Patient or Authorized Fitness Sales Consultant. The Patient or Authorized Fitness Sales Consultant has agreed to proceed with the sensitive examination. (Sensitive examination includes inspection and/or palpation of the breasts, pelvis, prostate and anorectal regions). EXAM: BP 110/70 Ht 5' 4.764 (1.65m) Wt 149 lb 6.4 oz (67.8kg) LMP 07/19/2013 BMI 25.04 kg/(m2). GENERAL: pleasant, female in no apparent distress HEENT: Normocephalic and atraumatic NECK: full range of motion DERMATOLOGY: Normal, without lesions, non-icteric, and non-hirsute BREAST: soft, non-tender, symmetric, no dominant mass, normal nipple-areolar complex, no lymphadenopathy, and no nipple discharge CHEST: Normal inspiratory effort ABDOMEN: soft, non-tender, and no masses PELVIC: external genitalia normal, normal Bartholin's glands, urethra, Ashaway's glands, no vulvar lesions, no cervical lesions, good vaginal support, physiologic discharge present, normal appearing perineal body and perianal region, vaginal atrophy noted BIMANUAL: uterus normal size, shape and consistency, no adnexal masses, and non-tender RECTOVAGINAL: deferred. NEURO: exam grossly non-focal EXTREMITIES: normal ASSESSMENT/PLAN: 1) Health maintenance: Pap/HPV up to date. Mammogram up to date Nutrition, exercise and routine health maintenance exams reviewed. Colon cancer screening: up to date with screening TSH/lipids/glucose: followed by PCP 2) Follow up one year or sooner as needed Jorge Barreto DO [facility] 04-28-2024 History of Presen t illness Narrative [employer] offered: Patient declines. Madison is a 54 year old who presents for an annual gynecologic exam without complaints. Desires refill of Imvexxy. Postmenopausal: Yes HRT use: Yes, Imvexxy Last Pap: 02/20/2022 normal HPV: 02/16/2022 negative History of abnormal pap: No Last mammogram: 2023 normal History of abnormal mammogram: No Sexually active: Yes Colonoscopy 2020 OB History T2 L3 SAB2 IAB0 Ectopic0 Multiple1 Live Births3 Comment: Invitro fertilization Twin boys, dtr Compliance And Control Analyst History LMP: 07/19/2013, Postmenopausal Age at Menarche: Age at First : Age at Menopause: Compliance And Control Analyst History Comments: Sexual Activity: Yes; Male Contraception: None PAST MEDICAL HISTORY Diagnosis Date Allergic rhinitis, cause unspecified History of transfusion HUS (hemolytic uremic syndrome) (HCC) 2011 complication of twin delivery. Hypertension Migraine, unspecified, without mention of intractable migraine without mention of status migrainosus has 0-3 per month Mixed anxiety and depressive disorder Unspecified hypothyroidism 2007 Dr. Maurer PAST SURGICAL HISTORY Procedure Laterality Date ABDOMINAL SURGERY HX SECTION HX 03/2011 COLONOSCOPY FLX DX W/COLLJ SPEC WHEN PFRMD 05/11/2021 repeat in 5 years EXTRACTION, ERUPTED TOOTH OR EXPOSED ROOT (ELEVATION AND/OR FORCEPS REMOVAL) 1997 FAMILY HISTORY Problem Relation Age of Onset Coronary Artery Disease Father CABG twice - first age 55 other (leukemia) Father AML(?) - age 78 Diabetes Mother age 72 - diet controlled Coronary Artery Disease Mother [place] age 73 Stroke Paternal Uncle age 60 Cancer Maternal Aunt in 30's - colon? SOCIAL HISTORY Social History Tobacco Use Smoking status: Never Smokeless tobacco: Never Vaping Use Vaping status: Never Used Substance Use Topics Alcohol use: Yes Comment: occasional Drug use: No REVIEW OF SYSTEMS Abdomen: No abdominal pain, nausea, vomiting, diarrhea, or constipation. No bloating, early satiety, indigestion, or increased flatulence. Bladder: No dysuria, gross hematuria, urinary frequency, urinary urgency, or incontinence Breast: No breast lumps, nipple d/c, overlying skin changes, redness or skin retraction Allergies and current medication updated:Yes SENSITIVE EXAM: The sensitive examination was discussed with the Patient or Patient's Authorized Fitness Sales Consultant. As applicable, any other physician, advance practice provider, medical student, or other health professional student that will be observing or involved in the sensitive examination for educational or training purposes was discussed with the Patient or Authorized Fitness Sales Consultant. The Patient or Authorized Fitness Sales Consultant has agreed to proceed with the sensitive examination. (Sensitive examination includes inspection and/or palpation of the breasts, pelvis, prostate and anorectal regions). EXAM: BP 110/70 Ht 5' 4.764 (1.65m) Wt 149 lb 6.4 oz (67.8kg) LMP 07/19/2013 BMI 25.04 kg/(m^2). GENERAL: pleasant, female in no apparent distress HEENT: Normocephalic and atraumatic NECK: full range of motion DERMATOLOGY: Normal, without lesions, non-icteric, and non-hirsute BREAST: soft, non-tender, symmetric, no dominant mass, normal nipple-areolar complex, no lymphadenopathy, and no nipple discharge CHEST: Normal inspiratory effort ABDOMEN: soft, non-tender, and no masses PELVIC: external genitalia normal, normal Bartholin's glands, urethra, Ashaway's glands, no vulvar lesions, no cervical lesions, good vaginal support, physiologic discharge present, normal appearing perineal body and perianal region, vaginal atrophy noted BIMANUAL: uterus normal size, shape and consistency, no adnexal masses, and non-tender RECTOVAGINAL: deferred. NEURO: exam grossly non-focal EXTREMITIES: normal ASSESSMENT/PLAN: 1) Health maintenance: Pap/HPV up to date. Mammogram up to date Nutrition, exercise and routine health maintenance exams reviewed. Colon cancer screening: up to date with screening TSH/lipids/glucose: followed by PCP 2) Follow up one year or sooner as needed Jorge Barreto DO documented in this encounter [facility] 04-03-2024 Miscellaneous Notes Prescription Refill Information The patient has been identified by name and date of : Yes Caregiver verified no other encounters exist for this prescription request: Yes Caregiver confirmed with patient/requestor that no other refills are due, in the near future, with this provider at this time: Yes The last office visit in the department: 03/19/2024 Does the patient have a future office visit with this provider/department: No Requested Prescriptions Pending Prescriptions Disp Refills busPIRone (BUSPAR) 10 mg tablet [Pharmacy Med Name: BUSPIRONE HCL 10 MG TABLET] 270 tablet 1 Sig: TAKE 1 TABLET BY MOUTH THREE TIMES A DAY NEEDED Belkis Celis LPN April 03, 2024 10:15 AM documented in this encounter [facility] 04-03-2024 Telephone encounter Note Prescription Refill Information The patient has been identified by name and date of : Yes Caregiver verified no other encounters exist for this prescription request: Yes Caregiver confirmed with patient/requestor that no other refills are due, in the near future, with this provider at this time: Yes The last office visit in the department: 03/19/2024 Does the patient have a future office visit with this provider/department: No Requested Prescriptions Pending Prescriptions Disp Refills busPIRone (BUSPAR) 10 mg tablet [Pharmacy Med Name: BUSPIRONE HCL 10 MG TABLET] 270 tablet 1 Sig: TAKE 1 TABLET BY MOUTH THREE TIMES A DAY NEEDED Belkis Celis LPN April 03, 2024 10:15 AM [facility] 03-26-2024 History of Presen t illness Narrative Radiology Service Progress Note PATIENT NAME: Madison Delacruz DATE OF SERVICE: March 26, 2024 TIME: 7:54 AM PATIENT IDENTITY VERIFICATION COMPLETED USING TWO (2) IDENTIFIERS: Name and Date of confirmed by patient verbally. FALL SCREENING: Has the patient had 2 falls in the last year or 1 fall with injury or currently using an Ambulatory Assistive Device (Walker, Cane, Wheelchair, Crutches, etc.)? No PATIENT GENDER DATA: Female. status: : No status: NO. PATIENT RELEVANT IMPLANT DATA REVIEWED: Not Applicable PATIENT PRESENTS WITH AN IMPLANTABLE OR ATTACHED CONE OPERATOR: No RADIOLOGY DEPARTMENT: Mammography PERIPHERAL IV DATA: Not applicable SIGNED BY: Megha Vargas [employer] March 26, 2024 7:54 AM documented in this encounter [facility] 03-26-2024 Note HNO ID: [id number] Author: MEGHA VARGAS Mammo Tech Service: ? Author Type: Corporate Secretary Type: Progress Notes Filed: 03/26/2024 07:54 Note Text: Radiology Service Progress Note PATIENT NAME: Madison Delacruz DATE OF SERVICE: March 26, 2024 TIME: 7:54 AM PATIENT IDENTITY VERIFICATION COMPLETED USING TWO (2) IDENTIFIERS: Name and Date of confirmed by patient verbally. FALL SCREENING: Has the patient had 2 falls in the last year or 1 fall with injury or currently using an Ambulatory Assistive Device (Walker, Cane, Wheelchair, Crutches, etc.)? No PATIENT GENDER DATA: Female. status: : No status: NO. PATIENT RELEVANT IMPLANT DATA REVIEWED: Not Applicable PATIENT PRESENTS WITH AN IMPLANTABLE OR ATTACHED CONE OPERATOR: No RADIOLOGY DEPARTMENT: Mammography PERIPHERAL IV DATA: Not applicable SIGNED BY: Oumou Salas March 26, 2024 7:54 AM [facility] 03-19-2024 History of Presen t illness Narrative This note was created using [employer]. Subjective Madison Delacruz is a 54 year old female. Patient here for well adult exam. No new concerns. HTN: taking lisinopril, BP under goal. Hypothyroid: most recent TSH within normal limits. Mood: managed on Celexa and buspar PRN The history is provided by the patient. Review of Systems Constitutional: Positive for fatigue. Negative for chills, fever and unexpected weight change. HENT: Negative for congestion, ear pain, hearing loss, rhinorrhea and sore throat. Eyes: Negative for visual disturbance. Respiratory: Negative for cough, shortness of breath and wheezing. Cardiovascular: Negative for chest pain, palpitations and leg swelling. Gastrointestinal: Negative for abdominal pain, constipation, diarrhea, nausea and vomiting. Endocrine: Negative for polydipsia and polyuria. Genitourinary: Negative for dysuria, flank pain, frequency, hematuria, pelvic pain, urgency and vaginal discharge. Musculoskeletal: Negative for back pain, joint swelling and neck pain. Skin: Negative for rash. Allergic/Immunologic: Negative for immunocompromised state. Neurological: Negative for dizziness, syncope, weakness, numbness and headaches. Hematological: Negative for adenopathy. Does not bruise/bleed easily. Psychiatric/Behavioral: Negative for dysphoric mood and sleep disturbance. The patient is not nervous/anxious. 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 Hypertension Migraine, unspecified, without mention of intractable migraine without mention of status migrainosus has 0-3 per month Mixed anxiety and depressive disorder Unspecified hypothyroidism 2007 Dr. Maurer PAST SURGICAL HISTORY Procedure Laterality Date ABDOMINAL SURGERY HX SECTION HX 03/2011 COLONOSCOPY FLX DX W/COLLJ SPEC WHEN PFRMD 05/11/2021 repeat in 5 years EXTRACTION, ERUPTED TOOTH OR EXPOSED ROOT (ELEVATION AND/OR FORCEPS REMOVAL) 1997 ALLERGIES Bees, Erythromycin, and Kiwi MEDICATIONS levothyroxine (SYNTHROID) 100 mcg tablet Take 1 tablet by mouth once daily. levothyroxine (SYNTHROID) 25 mcg tablet Take 1 tablet by mouth once daily. Take on empty stomach. For Thyroid. In addition to the 100 mcg dose tablet . folic acid-Vit B6-Vit B12 (FOLBIC) 2.5-25-2 mg tab Take 1 tablet by mouth once daily. meclizine (ANTIVERT) 25 mg tab Take 1 tablet by mouth three times daily as needed (dizziness). fluticasone (FLONASE) 50 mcg/actuation nasal spray USE 2 SPRAYS IN EACH NOSTRIL ONCE DAILY. Melatonin 5 mg tab Take 1 tablet by mouth daily at bedtime. lisinopril (ZESTRIL) 10 mg tablet Take 1 tablet by mouth once daily. montelukast (SINGULAIR) 10 mg tablet Take 1 tablet by mouth daily at bedtime. EPINEPHrine (EPIPEN) 0.3 mg/0.3 mL auto-injector As instructed, when needed citalopram (CELEXA) 20 mg tablet Take 1.5 tablets by mouth once daily. busPIRone (BUSPAR) 10 mg tablet Take 1 tablet by mouth three times a day as needed. naproxen (NAPROSYN) 500 mg tablet Take 1 tablet by mouth two times a day as needed (for pain/inflammation). Take with food. estradiol 4 mcg vaginal suppository maintenance pack (IMVEXXY) Use 1 Suppository vaginally two times a week. FAMILY HISTORY Problem Relation Age of Onset Coronary Artery Disease Father CABG twice - first age 55 other (leukemia) Father AML(?) - age 78 Diabetes Mother age 72 - diet controlled Coronary Artery Disease Mother [place] age 73 Stroke Paternal Uncle age 60 Cancer Maternal Aunt in 30's - colon? Social History Tobacco Use Smoking status: Never Smokeless tobacco: Never Vaping Use Vaping status: Never Used Substance Use Topics Alcohol use: Yes Comment: occasional Drug use: No Objective BP 119/78 Pulse (!) 53 Ht 165.1 cm (5' 5) Wt 66 kg (145 lb 8.1 oz) LMP 07/19/2013 SpO2 98% BMI 24.21 kg/m Physical Exam Vitals and nursing note reviewed. Constitutional: Appearance: She is well-developed. She is not ill-appearing. HENT: Right Ear: Tympanic membrane and ear canal normal. Left Ear: Tympanic membrane and ear canal normal. Mouth/Throat: Mouth: Mucous membranes are moist. Pharynx: Uvula midline. Eyes: Conjunctiva/sclera: Conjunctivae normal. Pupils: Pupils are equal, round, and reactive to light. Neck: Thyroid: No thyromegaly. Cardiovascular: Rate and Rhythm: Normal rate and regular rhythm. Heart sounds: Normal heart sounds. Pulmonary: Effort: Pulmonary effort is normal. Breath sounds: Normal breath sounds. Abdominal: General: Bowel sounds are normal. Palpations: Abdomen is soft. Tenderness: There is no abdominal tenderness. Genitourinary: Vagina: Normal. Cervix: No cervical motion tenderness or discharge. Adnexa: Right: No tenderness. Left: No tenderness. Musculoskeletal: Cervical back: Full passive range of motion without pain. No tenderness. Lymphadenopathy: Cervical: No cervical adenopathy. Skin: General: Skin is warm and dry. Neurological: Mental Status: She is alert and oriented to person, place, and time. Cranial Nerves: No cranial nerve deficit. Gait: Gait normal. Deep Tendon Reflexes: Reflex Scores: Patellar reflexes are 2+ on the right side and 2+ on the left side. Psychiatric: Mood and Affect: Mood normal. Thought Content: Thought content normal. Assessment and Plan 1. Well adult exam F/u in 1 year. 2. Acquired hypothyroidism TSH in range, continue current dosing. 3. Primary hypertension Controlled on current medications, continue. 4. Mixed anxiety and depressive disorder Stable on current medications. - citalopram (CELEXA) 20 mg tablet; Take 1.5 tablets by mouth once daily. Dispense: 135 tablet; Refill: 2 - busPIRone (BUSPAR) 10 mg tablet; Take 1 tablet by mouth three times a day as needed. Dispense: 90 tablet; Refill: 1 5. Seasonal allergic rhinitis, unspecified trigger Stable on current medications. - montelukast (SINGULAIR) 10 mg tablet; Take 1 tablet by mouth daily at bedtime. Dispense: 90 tablet; Refill: 3 6. Bee sting allergy Needs new refill. - EPINEPHrine (EPIPEN) 0.3 mg/0.3 mL auto-injector; As instructed, when needed Dispense: 1 Each; Refill: 0 Lorena Zendejas APRN.S[employer]IOR [employer] OFFICER documented in this encounter [facility] 03-19-2024 Note HNO ID: [id number] Author: LORENA ZENDEJAS APRN.S[employer]IOR [employer] OFFICER Service: ? Author Type: Nurse Practitioner Type: Progress Notes Filed: 03/19/2024 16:39 Note Text: This note was created using [employer]. Subjective Madison Delacruz is a 54 year old female. Patient here for well adult exam. No new concerns. HTN: taking lisinopril, BP under goal. Hypothyroid: most recent TSH within normal limits.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 times daily. (Patient taking differently: Take 10 mg by mouth three times a day as needed.) meclizine (ANTIVERT) 25 mg tab Take 1 tablet by mouth three times daily as needed (dizziness). EPINEPHrine (EPIPEN) 0.3 mg/0.3 mL auto-injector As instructed, when needed fluticasone (FLONASE) 50 mcg/actuation nasal spray USE 2 SPRAYS IN EACH NOSTRIL ONCE DAILY. Melatonin 5 mg tab Take 1 tablet by mouth daily at bedtime. Review of Systems Constitutional: Positive for fatigue. Respiratory: Negative. Cardiovascular: Negative. Genitourinary: Negative. Psychiatric: Positive for depressed mood. VITAL SIGNS: Deferred due to virtual visit. PHYSICAL EXAMINATION: Constitutional: Appearance: Well groomed. Well nourished FEMALE. Very pleasant. Neurological: General: No focal deficit present. Mental Status: A&OX3 (person, place, and time). Speech: Clear, projects well. Memory: Intact, responses appropriate. Mood and Affect: Mood normal. Behavior: Behavior normal Assessment & Plan Diagnosis: Norma (obstructive sleep apnea) (primary encounter diagnosis) Excessive daytime sleepiness Overview: Madison Delacruz is a 53 year old year old female with a PMH as noted who presents via Virtual Visit for Review PSG results. Reports snoring, never stops breathing, very aware of her surroundings during the study, reports she had some difficulty sleeping the night of her study. Discussed Polysomnogram performed on 07/15/23 revealed mild NORMA (AHI of 5.2, Supine AHI 7.0, REM AHI 2.2) that was associated with a minimum O2 saturation of 92%. Discussed the diagnosis and physiology of obstructive sleep apnea. Discussed the importance of treating NORMA, with particular attention given to the comorbidities associated with untreated NORMA, which include but are not limited to hypertension, heart disease, stroke, obesity and daytime sleepiness that can affect normal daytime functioning. Discussed treatment options for mild sleep apnea include oral appliance, conservative measures (avoidance of alcohol, sedative medications and sleeping in the back positions, management of nasal obstruction, and weight loss), surgery and potentially PAP therapy if daytime symptoms and certain comorbidities are present. In this instance, maintain weight loss and exercise, treatment of allergies, positional therapy, dental appliance or surgical correction of any airway abnormalities may be the most appropriate approach given. Plan: - I will include educational materials on weight loss therapy, treatment of allergies, positional therapy, dental appliances, and ENT/JOSH for the surgical correction of any airway abnormalities if present may also improve signs and symptoms of Obstructive Sleep Apnea. This information will be printed and given to you in your after visit summary. - Eat protein for breakfast and lunch. Carbs at dinner. - Watch for improvement in excessive daytime sleepiness and fatigue. - If signs and symptoms of sleep apnea worsen, a repeat PSG encouraging supine sleep may be indicated given night to night variability in sleep apnea and the possibility of a false negative study. Follow up as discussed. In 6 months to reassess EDS. I spent a total of 33 minutes. This was a new patient to me on the date of the service which included preparing to see the patient, [id number] patient care, completing clinical documentation, counseling and educating the patient/family/caregiver and ordering medications, tests, or procedures. Sunitha Rodgers APRN.FRED Activity Duration Current session 33 minutes Total time: 33 minutes documented in this encounter [facility] 08-23-2023 Miscellaneous Notes Pharmacy verified in [facility] Patient has been identified by name and date of : Yes Patient aware RX will be sent to pharmacy. No need to notify patient. Pharmacy phones for refill(s): Requested Prescriptions Pending Prescriptions Disp Refills levothyroxine (SYNTHROID) 25 mcg tablet [Pharmacy Med Name: LEVOTHYROXINE 25 MCG TABLET] 90 tablet 0 Sig: TAKE 1 TABLET BY MOUTH ONCE DAILY. TAKE ON EMPTY STOMACH. FOR THYROID. IN ADDITION TO THE 100 MCG DOSE TABLET . Date of last office visit : 02/19/2023 Date of next office visit : Visit date not found Last 2 Encounter Wt Readings: Date: Wt: 07/16/2023 64 kg (141 lb 1.5 oz) 05/18/2023 64 kg (141 lb) Thyroid: TSH Date Value 02/14/2023 2.980 mIU/L 03/12/2020 2.840 uU/mL Please advise. Belkis Celis LPN documented in this encounter [facility] 08-06-2023 History of Presen t illness Narrative The appointment was cancelled for this patient. Nurse called patient to notify that provider was completing previous patient appointment and will be on with patient shortly. Patient had to check out prior to provider logging on to appointment and said she will reschedule appointment. Cathy Porter APRN.FRED documented in this encounter [facility] 08-03-2023 History of Presen t illness Narrative This Team Access Model visit is a virtual encounter. It required patient-provider interaction for the medical decision making as documented below. The patient consented to proceed by video before initiating the encounter. DISTANCE HEALTH VISIT Madison Delacruz is a 53 year old female seen for cough. - Endorses chills, runny nose, post nasal drip and cough - Started Sunday (07/29) - Chest wall pain, improving, still feels it when laying down HISTORY REVIEWED (electronic chart updated): - medical history - medications - allergies REVIEW OF SYSTEMS: General: Feels well, no weight changes, fever, +chills. HEENT: No earache, sore throat. +sinus congestion +post nasal drip Cardiac: No chest pain, palpitations Resp: No wheeze or shortness of breath +cough GI: No reflux symptoms, food intolerance, bowel changes. : No urinary frequency, dysuria. MS: No pain or joint complaints. PHYSICAL EXAMINATION: VIDEO EXAM: performed via video enabled technology GENERAL: alert and appropriate, in no distress, well-hydrated, well nourished, and interactive No physical exam performed today (phone encounter). Data Reviewed: ASSESSMENT/PLAN: This encounter occurred by Zoom over the course of 3 minutes. (J06.9) Viral URI (primary encounter diagnosis) Comment: No inclined to start steroid or antibiotic treatment at this time Plan: Recommend OTC symptomatic relief medications Return to office is symptoms worsen or fail to improve Requested Prescriptions No prescriptions requested or ordered in this encounter RTO: if symptoms fail to improve or worsen Scribe Attestation: By signing my name below, Jami Rojas, attest that this documentation has been prepared under the direction and in the presence of Scout Madrigal M.D.. Electronically Signed: Kp Alvarez. August 03, 2023 9:40 AM. This telehealth encounter is provided under a state of emergency due to COVID19 and is for care for condition where providing the care is supportive of minimizing potential exposure and/or transmission of COVID19. Provider Attestation: Kathy Rojas MD, personally performed the services described in this documentation. All medical record entries made by the scribe were at my direction and in my presence. I have reviewed the chart and discharge instructions (if applicable), and agree that the record reflects my personal performance and is accurate and complete. Electronically Signed: Kathy Madrigal MD August 03, 2023 2:35 PM documented in this encounter [facility] 07-16-2023 History of Presen t illness Narrative Sleep Study Check-In Documentation Date: July 16, 2023 Name: Madison Delacruz Patient was accompanied by Self. Location: [place] Latex allergy: No Tape allergy: No Current medications were reviewed with the patient:Yes Sleep aid taken by patient for the sleep study: [place] of sleep aid: Not Applicable Procedure was explained to the patient and all questions were answered. PAP treatment discussed and shown to patient: Yes Knowledge Program (KP): KP was not completed in epic by patient and accepted Study type: Polysomnogram Adverse Event: No (If yes create a new abstract) Comments: Patient was advised to follow up with their ordering provider regarding test results CATHY ArguellesGT documented in this encounter [facility] 07-10-2023 History of Presen t illness Narrative This Team Access Model visit is a virtual encounter. It required patient-provider interaction for the medical decision making as documented below. The patient consented to proceed by Video before initiating the encounter. DISTANCE HEALTH VISIT Madison Delacruz is a 53 year old female seen for rib pain. Rib Pain, right side - Ongoing, intermittent - Usually occurs after coughing fits - Coughing is intermittent, ongoing since March - Has used a lidocaine patch almost every day for the last week - Previous imaging has been unremarkable - Denies history of asthma - Admits to history of allergies - Denies wheezing HISTORY REVIEWED (electronic chart updated): - medical history - medications - allergies REVIEW OF SYSTEMS: General: Feels well, no weight changes, fever, chills. HEENT: No sinus congestion, earache, sore throat. Cardiac: No chest pain, palpitations Resp: No wheeze or shortness of breath +coughing fits GI: No reflux symptoms, food intolerance, bowel changes. : No urinary frequency, dysuria. MS: +right sided rib pain PHYSICAL EXAMINATION: VIDEO EXAM: performed via video enabled technology GENERAL: alert and appropriate, in no distress, well-hydrated, well nourished, and happy, smiling, interactive No physical exam performed today (phone encounter). Data Reviewed: 05/05/2023 XR Ribs/Chest 3V AP Rib/Obls/Cxr Right Impression: No evidence of acute right rib fracture. FINDINGS: There is no evidence of acute right rib fracture. There is no pneumothorax or pleural effusion. The underlying visualized lungs appear Normal 04/20/2023 XR Chest 2V Frontal/Lat Impression: No acute radiographic abnormality. ASSESSMENT/PLAN: This encounter occurred by Zoom over the course of 13.5 minutes. (R07.89) Chest wall pain (primary encounter diagnosis) (M94.0) Costochondritis Cough Right sided rib pain Comment: Ongoing/intermittent. Cough is likely residual to recent URI or lung lining irritation. Also consider costochondritis. Plan: Start predniSONE (DELTASONE) 10 mg tablet May continue tessalon perles for cough Requested Prescriptions Signed Prescriptions Disp Refills predniSONE (DELTASONE) 10 mg tablet 21 tablet 0 Sig: Take 4 tabs daily for 3 days, then 2 tabs daily for 3 days, then 1 tab daily for 3 days with food. RTO: By August if there is no improvement Scribe Attestation: By signing my name below, IJami, attest that this documentation has been prepared under the direction and in the presence of Scout Madrigal M.D.. Electronically Signed: Kp Alvarez. July 10, 2023 4:44 PM. This telehealth encounter is provided under a state of emergency due to COVID19 and is for care for condition where providing the care is supportive of minimizing potential exposure and/or transmission of COVID19. Provider Attestation: Kathy Rojas MD, personally performed the services described in this documentation. All medical record entries made by the scribe were at my direction and in my presence. I have reviewed the chart and discharge instructions (if applicable), and agree that the record reflects my personal performance and is accurate and complete. Electronically Signed: Kathy Madrigal MD July 11, 2023 10:26 AM documented in this encounter [facility] 07-06-2023 Miscellaneous Notes The following approved medication requests have been transmitted electronically. Requested Prescriptions Signed Prescriptions Disp Refills citalopram (CELEXA) 20 mg tablet 135 tablet 2 Sig: TAKE 1 AND 1/2 TABLETS ONCEDAILY Authorizing Provider: KATHY MADRIGAL MD Pharmacy verified in Epic Patient has been identified by name and date of : Yes Patient aware RX will be sent to pharmacy. No need to notify patient. Pharmacy phones for refill(s): Requested Prescriptions Pending Prescriptions Disp Refills citalopram (CELEXA) 20 mg tablet [Pharmacy Med Name: CITALOPRAM TAB 20MG] 135 tablet 3 Sig: TAKE 1 AND 1/2 TABLETS ONCEDAILY Date of last office visit : 03-14-23 Date of next office visit : not found Last 2 Encounter Wt Readings: Date: Wt: 05/18/2023 64 kg (141 lb) 05/05/2023 63 kg (139 lb) Please advise. Eri Lara Ma documented in this encounter [facility] 06-14-2023 Miscellaneous Notes Spoke to pt. Has had 3 viruses since March. Seen in [facility] Care 3 times. First time 04/20, cough x 4 weeks and right rib pain; chest x-ray clear, received Augmentin, prednisone, Tessalon. Second time 05/05- mild cough, right rib pain. Rx naproxen Third time 05/18- head congestion and cough. Rx doxycycline for rhinosinusitis Recently traveled to [place], got back Sunday. [place] better until this Sunday/Sunday, started with cough, congestion, muscles aches and right rib pain has returned, same as before. Negative home Covid test. Putting menthol/capsaicin patches on rib which helps the most Taking Mucinex and Theraflu which are helping symptoms. Also using nasal saline, humidifier, and warm fluids/ honey. Discussed likely new virus and reviewed home care, pt is comfortable continuing home care for now. Offered to schedule appt to address rib pain, pt would like to wait and call back if pain persists. No further questions documented in this encounter [facility] 05-05-2023 History of Presen t illness Narrative Radiology Service Progress Note PATIENT NAME: Madison Delacruz DATE OF SERVICE: May 05, 2023 TIME: 9:52 AM PATIENT IDENTITY VERIFICATION COMPLETED USING TWO (2) IDENTIFIERS: Name and Date of confirmed by patient verbally. FALL SCREENING: Has the patient had 2 falls in the last year or 1 fall with injury or currently using an Ambulatory Assistive Device (Walker, Cane, Wheelchair, Crutches, etc.)? No PATIENT GENDER DATA: Female. status: : No status: NO. PATIENT RELEVANT IMPLANT DATA REVIEWED: Not Applicable RADIOLOGY DEPARTMENT: General X-ray: Exam(s) Completed: Rib X-Ray: Right PERIPHERAL IV DATA: Not applicable SIGNED BY: RT Vincenzo(R) May 05, 2023 9:52 AM documented in this encounter [facility] 04-30-2023 History of Presen t illness Narrative Sleep Study Check-In Documentation Date: April 30, 2023 Name: Madison Delacruz Comments: HST was returned in working order without all sleep questionnaires Patient was not reached. A voicemail was left with patient to call back to complete questionnaires. Mirella Prado Nomad# [id number], Date shipped out: 04/25/23 SENT FEDEX DELIVERY - FEDEX RETURN Tracking mailout: [id number] Tracking return: [phone] [id number] April 17, 2023 An order has been received for Home Sleep Apnea Test (HSAT) from Kate Farrell MD , A. Sleep Center Staff/Gun Profiler Staff Orders. Visit prep complete - Please refer to the sleep study order (under procedures tab) for protocol details and special instructions. The sleep study is scheduled for 05/12. Insurance: Payor: ANTHEM / Plan: BLUE CARD PPO OOS / Product Type: PPO / Payer/Plan Subscr Sex Relation Sub. Ins. ID Effective Group Num 1. ANTHEM - BLUE* MADISON DELACRUZ 1970 Female Self [id number] 05[birth year] [address] Elza Jacobo documented in this encounter [facility] 04-20-2023 Instructions Jeanine Nunez APRN.SENIOR [employer] OFFICER - 04/20/2023 9:47 AM EST Images from the original note were not included. ASSESSMENT/PLAN: 1. Persistent cough for 3 weeks or longer - ICD9: 786.2, ICD10: R05.3 (primary diagnosis) - XR CHEST 2V FRONTAL/LAT RESULT: Lines, tubes, and devices: None. Lungs and pleura: No consolidation. No lung mass. No pleural effusion. No pneumothorax. Cardiomediastinal silhouette: Normal cardiomediastinal silhouette. Bones and soft tissues: Unremarkable. IMPRESSION: No acute radiographic abnormality. Room Attendants: REZA Transcribe Date/Time: Apr 20 2023 9:37A Dictated by : IRIS YIP MD 2. Sinobronchitis - ICD9: 473.9, 490, ICD10: J32.9, J40 - Will begin treatment with as per antibiotic as written, see orders - Supportive care with plenty of fluids, rest, and analgesia prn. - AMOXICILLIN 875 MG-POTASSIUM CLAVULANATE 125 MG TABLET - PREDNISONE 20 MG TABLET - BENZONATATE 100 MG CAPSULE - Follow-up with your PCP in 3-5 days if symptoms have not improved or sooner if symptoms worsen - Discussed red flags and need for immediate medical evaluation if any occur. - Discussed supportive care treatment with fluids, rest and analgesia. - Discussed expected course of illness Jeanine Nunez APRN.SENIOR [employer] OFFICER Adult Sinusitis Patient Education What is Sinusitis? Sinusitis [hnuc-[id number]-tis] is inflammation of the sinuses or swelling of the lining of the sinus cavity or nose. During an infection the sinuses become blocked with fluid causing swelling of the lining of the sinuses. Symptoms: (viral and bacterial infections) Stuffy nose Runny nose Postnasal drip Fever Toothache Headache Tiredness Cough Sore throat Face and head pressure and or pain Common causes: 98% of sinus infections are viral caused by viruses. Risk Factors of Sinusitis Include: Allergies, air pollution, indoor humidity and outdoor temperature changes, andstructural changes in the nose may contribute to sinus pain, pressure and congestion. When to get help? Temperature greater than 100.4 F Symptoms lasting more than 10 days or worsening symptoms greater than 7-10 days. If you do not improve or worsen after a course of antibiotics, you should be re-examined. Diagnosis and Treatment: Your healthcare provider will ask a number of questions about your symptoms and how long they have occurred. If symptoms of sinusitis persist greater than 10 days, it is possible you have a bacterial sinus infection and an antibiotic is prescribed. If it is viral, antibiotics will not help. You may be instructed to take byug-pcl-kgsutft medications for symptoms. including fever reducers acetaminophen or ibuprofen, nasal saline spray, cough and cold preparations and decongestants as prescribed by the physician, nurse practitioner or physician fast food assistant restaurant manager. Self-Care and Prevention: Rest Fluids for hydration Good hand washing Humidifier Avoid smoking and exposure to second hand smoke Avoid sick contacts ACUTE BRONCHITIS: You have acute bronchitis. This means the airway passages in your lungs are inflamed. Bronchitis may be caused by viruses or bacteria. Inhaling cigarette smoke will always make it worse. Exposure to irritating chemicals or second hand smoke as well as allergies can contribute to bronchitis. Repeat episodes of bronchitis may cause lifelong lung problems. Acute bronchitis is usually treated with rest, fluids, cough medicine, and possibly antibiotics or inhaled medicine to open up the small airways. It is very important that you avoid smoke and drink increased amounts of fluids. A cool air vaporizer can help thin bronchial secretions. This makes it easier to cough and clear your chest. If you are a cigarette smoker, consider using nicotine gum or skin patches to help you withdraw. Recovery from bronchitis is often slow, but you should start feeling better after 2-3 days of treatment. Please call your doctor or return here if you have any of the following symptoms: Increased fever, chills, or chest pain. Severe shortness of breath or bloody sputum. Do not improve after 3 days of proper treatment. documented in this encounter [facility] 04-20-2023 History of Presen t illness Narrative Radiology Service Progress Note PATIENT NAME: Madison Delacruz DATE OF SERVICE: April 20, 2023 TIME: 9:25 AM PATIENT IDENTITY VERIFICATION COMPLETED USING TWO (2) IDENTIFIERS: Name and Date of confirmed by patient verbally. FALL SCREENING: Has the patient had 2 falls in the last year or 1 fall with injury or currently using an Ambulatory Assistive Device (Walker, Cane, Wheelchair, Crutches, etc.)? No PATIENT GENDER DATA: Female. status: : No status: NO. PATIENT RELEVANT IMPLANT DATA REVIEWED: Not Applicable RADIOLOGY DEPARTMENT: General X-ray: Exam(s) Completed: Chest X-Ray PERIPHERAL IV DATA: Not applicable SIGNED BY: RT Bill(R) April 20, 2023 9:25 AM documented in this encounter [facility] 04-20-2023 History of Presen t illness Narrative Subjective Cough Associated symptoms include shortness of breath. Pertinent negatives include no chest pain, no chills, no ear pain, no sore throat, no myalgias and no wheezing. Madison Delacruz is a 53 year old female who presents with cough x 4 weeks. States she has coughing fits where she can't stop coughing. Happens during daytime hours and also at night between midnight and 3 am. She has been using mucinex dm and cough drops. She tried using an inhaler too and that did not help. She denies pain or fever. The cough is sometimes productive. She has also had persistent nasal congestion and drainage. Review of Systems Constitutional: Negative for chills, fever and malaise/fatigue. HENT: Positive for congestion. Negative for ear pain and sore throat. Respiratory: Positive for cough and shortness of breath. Negative for wheezing. Cardiovascular: Negative for chest pain. Musculoskeletal: Negative for myalgias. 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 Hypertension Migraine, unspecified, without mention of intractable migraine without mention of status migrainosus has 0-3 per month Mixed anxiety and depressive disorder Unspecified hypothyroidism 2007 Dr. Maurer PAST SURGICAL HISTORY Procedure Laterality Date ABDOMINAL SURGERY HX SECTION HX 03/2011 COLONOSCOPY FLX DX W/COLLJ SPEC WHEN PFRMD 05/11/2021 repeat in 5 years EXTRACTION, ERUPTED TOOTH OR EXPOSED ROOT (ELEVATION AND/OR FORCEPS REMOVAL) 1997 ALLERGIES Bees, Erythromycin, and Kiwi MEDICATIONS levothyroxine (LEVOXYL) 25 mcg tablet Take 1 tablet by mouth once daily. Take on empty stomach. For Thyroid. In addition to the 100 mcg dose tablet . lisinopril (ZESTRIL) 10 mg tablet Take 1 tablet by mouth once daily. levothyroxine (SYNTHROID) 100 mcg tablet Take 1 tablet by mouth once daily. montelukast (SINGULAIR) 10 mg tablet Take 1 tablet by mouth daily at bedtime. folic acid-Vit B6-Vit B12 (FOLBIC) 2.5-25-2 mg tab Take 1 tablet by mouth once daily. citalopram (CELEXA) 20 mg tablet Take 1.5 tablets by mouth once daily. busPIRone (BUSPAR) 10 mg tablet Take 1 tablet by mouth three times daily. (Patient taking differently: Take 10 mg by mouth three times a day as needed.) estradiol 4 mcg vaginal suppository maintenance pack (IMVEXXY) Use 1 Suppository vaginally two times a week. meclizine (ANTIVERT) 25 mg tab Take 1 tablet by mouth three times daily as needed (dizziness). EPINEPHrine (EPIPEN) 0.3 mg/0.3 mL auto-injector As instructed, when needed fluticasone (FLONASE) 50 mcg/actuation nasal spray USE 2 SPRAYS IN EACH NOSTRIL ONCE DAILY. Melatonin 5 mg tab Take 1 tablet by mouth daily at bedtime. FAMILY HISTORY Problem Relation Age of Onset Coronary Artery Disease Father CABG twice - first age 55 other (leukemia) Father AML(?) - age 78 Diabetes Mother age 72 - diet controlled Coronary Artery Disease Mother [place] age 73 Stroke Paternal Uncle age 60 Cancer Maternal Aunt in 30's - colon? Social History Tobacco Use Smoking status: Never Smokeless tobacco: Never Vaping Use Vaping Use: Never used Substance Use Topics Alcohol use: Yes Comment: occasional Drug use: No Objective Physical Exam Vitals and nursing note reviewed. Constitutional: General: She is not in acute distress. Appearance: Normal appearance. She is not ill-appearing. HENT: Right Ear: Tympanic membrane, ear canal and external ear normal. Left Ear: Tympanic membrane, ear canal and external ear normal. Nose: Mucosal edema, congestion and rhinorrhea present. Mouth/Throat: Mouth: Mucous membranes are moist. Pharynx: Uvula midline. No oropharyngeal exudate or posterior oropharyngeal erythema. Cardiovascular: Rate and Rhythm: Normal rate and regular rhythm. Heart sounds: Normal heart sounds. Pulmonary: Effort: Pulmonary effort is normal. No respiratory distress. Breath sounds: Normal breath sounds. No wheezing or rales. Musculoskeletal: Cervical back: Neck supple. Lymphadenopathy: Cervical: No cervical adenopathy. Skin: General: Skin is warm and dry. Findings: No erythema or rash. Neurological: Mental Status: She is alert. ASSESSMENT/PLAN: 1. Persistent cough for 3 weeks or longer - ICD9: 786.2, ICD10: R05.3 (primary diagnosis) - XR CHEST 2V FRONTAL/LAT RESULT: Lines, tubes, and devices: None. Lungs and pleura: No consolidation. No lung mass. No pleural effusion. No pneumothorax. Cardiomediastinal silhouette: Normal cardiomediastinal silhouette. Bones and soft tissues: Unremarkable. IMPRESSION: No acute radiographic abnormality. Room Attendants: REZA Transcribe Date/Time: Apr 20 2023 9:37A Dictated by : IRIS YIP MD 2. Sinobronchitis - ICD9: 473.9, 490, ICD10: J32.9, J40 - Will begin treatment with as per antibiotic as written, see orders - Supportive care with plenty of fluids, rest, and analgesia prn. - AMOXICILLIN 875 MG-POTASSIUM CLAVULANATE 125 MG TABLET - PREDNISONE 20 MG TABLET - BENZONATATE 100 MG CAPSULE - Follow-up with your PCP in 3-5 days if symptoms have not improved or sooner if symptoms worsen - Discussed red flags and need for immediate medical evaluation if any occur. - Discussed supportive care treatment with fluids, rest and analgesia. - Discussed expected course of illness Jeanine Nunez APRN.S[employer]IOR [employer] OFFICER documented in this encounter [facility] 03-16-2023 Instructions Kate Beyer MD - 03/16/2023 2:08 PM EDT You may have sleep apnea. This can be obstructive or central sleep apnea, and can affect heart function and heart rhythm. It can also contribute to diabetes, stroke, dementia and headaches. The first step is to schedule a sleep study. To schedule your sleep study please call the [facility] at [phone]. The [phone] phone number will be answered by the Lab PSS M-F, 8am-5pm and after 5pm this line will roll to the call center. -- When you call this number please schedule both your sleep study and your follow up 3 weeks after the study with me or our nurse practitioners so we can review the results with you For in-laboratory studies, if you have apnea and it's early enough in the night, we we will try CPAP. Depending on insurance and the severity of your apnea, there may be a requirement of a second night in the lab to try CPAP (a CPAP titration study). For home sleep studies, if apnea found, we may be able to set you up on CPAP at home without a night in the laboratory. This is dependant on insurance, and the severity of what is found during the home sleep study. It may take up to 3 weeks after your test for results to be available. We will communicate your results by My Chart.The best way to communicate with our office is My Chart. If you have not already done so; you can sign up for my chart by providing an e-mail address to our office staff. If you do not use My Chart, then we will call you with results. documented in this encounter [facility] 03-16-2023 History of Presen t illness Narrative Images from the original note were not included. [facility] New Patient Virtual Evaluation PATIENT NAME: MADISON DELACRUZ DATE OF SERVICE: March 16, 2023 REASON FOR VISIT: EDS HPI: Madison Delacruz is a 53 year old who presents today for evaluation. Sleep-related history: She feels like she is tired all the time. When asked she feels this is sleepiness > fatigue. She often feels sleepy throughout the day for the past 2 years. Additionally with minor activity she has a lot of fatigue which these activities used to be easier for her. SLEEP-WAKE SCHEDULE Bedtime: 10-10:30 PM. does not have a hard time falling asleep. Wake time: 5-5:30 AM On weekends, tends to stay up until 10:30-11 PM and sleeps until 7 AM. Naps: None Average total sleep time (in a 24 hour period): 7 hours. SLEEP-RELATED DETAILS Preferred sleep position: prone Breathing disturbances and other behaviors during sleep: snoring. Snort/gasp arousals: None Excessive daytime sleepiness / fatigue is a problem. Excessive Daytime sleepiness/fatigue has been a problem for 2 years. She denies any history of parasomnias. does not report sleep paralysis or sleep-related hallucinations or cataplexy. WAKE-RELATED DETAILS She works but is not a shift worker. denies falling asleep or dozing off when driving. PATIENT-ENTERED QUESTIONNAIRE SLEEP SCORES Sleep Questions 03/16/2023 Reason for visit: Excessive daytime sleepiness Average hours slept in 24 hours: 7 Accidents or near accidents due to drowsy drivin [place] Sleepiness Scale 03/16/2023 Score 12 (present daytime sleepiness) PHQ-9 03/16/2021 02/12/2023 03/16/2023 Score 4 7 8 MEDICAL HISTORY REVIEWED ACTIVE PROBLEM LIST Acquired Hypothyroidism Allergic Rhinitis Migraine Headache Family History of Ischemic Heart Disease Hypertension Mixed Anxiety and Depressive Disorder Bee Sting Allergy Ptsd (Post-Traumatic Stress Disorder) Genital Atrophy of Female Recurrent Vaginitis Abnormal Perimenopausal Bleeding Hus (Hemolytic Uremic Syndrome) (Hcc) Rosacea CURRENT MEDICATIONS REVIEWED levothyroxine (LEVOXYL) 25 mcg tablet Take 1 tablet by mouth once daily. Take on empty stomach. For Thyroid. In addition to the 100 mcg dose tablet . lisinopril (ZESTRIL) 10 mg tablet Take 1 tablet by mouth once daily. levothyroxine (SYNTHROID) 100 mcg tablet Take 1 tablet by mouth once daily. montelukast (SINGULAIR) 10 mg tablet Take 1 tablet by mouth daily at bedtime. folic acid-Vit B6-Vit B12 (FOLBIC) 2.5-25-2 mg tab Take 1 tablet by mouth once daily. citalopram (CELEXA) 20 mg tablet Take 1.5 tablets by mouth once daily. busPIRone (BUSPAR) 10 mg tablet Take 1 tablet by mouth three times daily. (Patient taking differently: Take 10 mg by mouth three times a day as needed.) estradiol 4 mcg vaginal suppository maintenance pack (IMVEXXY) Use 1 Suppository vaginally two times a week. meclizine (ANTIVERT) 25 mg tab Take 1 tablet by mouth three times daily as needed (dizziness). EPINEPHrine (EPIPEN) 0.3 mg/0.3 mL auto-injector As instructed, when needed fluticasone (FLONASE) 50 mcg/actuation nasal spray USE 2 SPRAYS IN EACH NOSTRIL ONCE DAILY. Melatonin 5 mg tab Take 1 tablet by mouth daily at bedtime. Malatonin PRN Prior Insomnia Medications (last 20 years) Some values may be hidden. Unless noted otherwise, only the newest values recorded on each date are displayed. Insomnia Medications amitriptyline (ELAVIL) 10 mg tablet Dose: 10 mg AT BEDTIME Starting date: 05/05/2016 Ending date: 03/12/2017 (Discontinued) citalopram (CELEXA) 20 mg tablet Dose: 20 mg DAILY Starting date: 03/19/2018 Ending date: 02/17/2019 (Discontinued) citalopram (CELEXA) 20 mg tablet Dose: 20 mg DAILY Starting date: 02/17/2019 Ending date: 08/25/2019 (Discontinued) citalopram (CELEXA) 20 mg tablet Dose: TAKE 1 TABLET BY MOUTH EVERY DAY Starting date: 08/25/2019 Ending date: 02/19/2020 (Discontinued) citalopram (CELEXA) 20 mg tablet Dose: TAKE 1 TABLET BY MOUTH EVERY DAY Starting date: 02/19/2020 Ending date: 03/16/2021 (Discontinued) citalopram (CELEXA) 20 mg tablet Dose: 40 mg DAILY Starting date: 03/12/2020 Ending date: 03/16/2021 (Discontinued) citalopram (CELEXA) 20 mg tablet Dose: 30 mg DAILY (Patient taking differently: 20 mg DAILY as of 02/10/2022 3:31 PM, 20 mg DAILY as of 12/15/2021 8:11 AM) Starting date: 03/16/2021 Ending date: 07/23/2022 (Discontinued) citalopram (CELEXA) 20 mg tablet Dose: 30 mg DAILY Starting date: 07/24/2022 (active) citalopram hydrobromide (CELEXA) 10 mg tablet Dose: 10 mg DAILY Starting date: 12/11/2015 Ending date: 12/28/2015 (Discontinued) citalopram hydrobromide (CELEXA) 10 mg tablet Dose: 10 mg DAILY Starting date: 12/28/2015 Ending date: 12/25/2016 (Discontinued) citalopram hydrobromide (CELEXA) 10 mg tablet Dose: TAKE 1 TABLET BY MOUTH ONCE DAILY. Starting date: 12/25/2016 Ending date: 07/08/2017 (Discontinued) citalopram hydrobromide (CELEXA) 10 mg tablet Dose: 10 mg DAILY Starting date: 07/09/2017 Ending date: 12/09/2017 (Discontinued) citalopram hydrobromide (CELEXA) 10 mg tablet Dose: 10 mg DAILY Starting date: 12/10/2017 Ending date: 03/19/2018 (Discontinued) DOXEPIN 10 MG CAP Dose: Take 3 tables at bedtime. Starting date: 05/24/2009 Ending date: 08/25/2009 (Discontinued) DOXEPIN 50 MG CAP Dose: Take one(1) tablet at bedtime. Starting date: 05/24/2009 Ending date: 01/19/2010 (Discontinued) Melatonin 5 mg tab Dose: 5 mg AT BEDTIME Starting date: 06/02/2015 (active) midazolam 1-5 mg injection (VERSED) Dose: 1-5 mg DIRECTED DOSING DIRECTED BY PHYSICIAN FOR PROCEDURAL SEDATION ONLY Starting date: 05/11/2021 Ending date: 05/11/2021 NORTRIPTYLINE 10 MG CAP Dose: Take 3 PO QHS Starting date: 02/11/2009 Ending date: 03/18/2009 (Discontinued) nortriptyline hcl(PAMELOR 50 MG CAP) Dose: Take one(1) capsule daily. Starting date: 02/11/2009 Ending date: 08/25/2009 (Discontinued) sertraline (ZOLOFT) 100 mg tablet Dose: 100 mg DAILY Starting date: 05/22/2014 Ending date: 08/12/2014 (Discontinued) sertraline (ZOLOFT) 100 mg tablet Dose: 100 mg DAILY Starting date: 08/12/2014 Ending date: 11/08/2014 (Discontinued) sertraline (ZOLOFT) 100 mg tablet Dose: TAKE 1 TABLET BY MOUTH ONCE DAILY. Starting date: 11/09/2014 Ending date: 03/03/2015 (Discontinued) sertraline (ZOLOFT) 100 mg tablet Dose: 100 mg DAILY Starting date: 03/03/2015 Ending date: 05/30/2015 (Discontinued) sertraline (ZOLOFT) 100 mg tablet Dose: 100 mg DAILY Starting date: 05/31/2015 Ending date: 07/27/2015 (Discontinued) sertraline (ZOLOFT) 100 mg tablet Dose: 50 mg DAILY Starting date: 07/27/2015 Ending date: 10/12/2015 (Discontinued) sertraline (ZOLOFT) 100 mg tablet Dose: 50 mg DAILY Starting date: 10/12/2015 Ending date: 12/28/2015 (Discontinued) sertraline (ZOLOFT) 50 mg tablet Dose: 50 mg DAILY Starting date: 04/20/2014 Ending date: 05/22/2014 (Discontinued) Medication marked as long-term ALLERGIES REVIEWED Allergies As of Date: 03/16/2023 Allergen Noted Reaction BEES 02/18/2008 Cough and Hives ERYTHROMYCIN 02/18/2008 Hives KIWI 02/18/2008 Fully Assessed 02/19/2023 SOCIAL HISTORY Alcohol usage: 0-2 drinks a week Smoking: none Caffeine: does drink 2-3 caffeinated beverages per day. FAMILY HISTORY: There is no family history of sleep disorders. PHYSICAL EXAMINATION: LMP 07/19/2013 Self reported weight: 137lbs General appearance: NAD Mental status: Alert and oriented. Able to provide own history Neck: no visible goiter Constitutional: WNL Skin: No visible rashes on exposed skin Eyes: conjugate, no obvious ptosis ENT : Nose and mouth midline Neuro: No focal deficits observed, no tremors IMPRESSION/PLAN: The patient is a 53 year old who presents today for evaluation of EDS. She notes EDS for the past 2 years, in addition to snoring. As such I recommended evaluation for sleep apnea. - Home Sleep Apnea Test (HST) to evaluate for obstructive sleep apnea. -- Follow up 2-3 weeks after HSAT -- If negative will need in lab PSG - Discussed with the patient the possible diagnosis, causes, and conditions associated with obstructive sleep apnea. - Avoid driving when drowsy. Recommend that if you are dozing off while driving, that you do not drive until your sleepiness is appropriately treated. -Encouraged healthy lifestyle with adequate sleep ( 7-9 hours per night), diet and exercise. - Results are usually available within 7-10 business days. If you do not hear from us within 1-2 weeks after testing, please contact us directly. Kate Beyer MD I have communicated my name and active licensure. The patient's identity and physical location were verified at the time of this visit. Either the patient or their legal manufacturing sales representative has been informed of the risks and benefits of -- and alternatives to -- treatment through a remote evaluation and consents to proceed with the evaluation remotely. documented in this encounter [facility] 03-14-2023 History of Presen t illness Narrative This Team Access Model visit is a virtual encounter. It required patient-provider interaction for the medical decision making as documented below. The patient consented to proceed by video before initiating the encounter. DISTANCE HEALTH VISIT Madison Delacruz is a 53 year old female seen for fatigue. - Feels persistently fatigued - Will be driving home from work and can feel herself being lulled to sleep - Notes that she is sleeping well during the night - Is able to fall asleep within an hour and does not usually woke during the night - Feels generally rested when she wakes up - No change in medication - Notes that 2 months ago she felt unwell for 1-2 days, does not think she had Covid. - States that she felt fatigues prior to feeling unwell - Does not recall ever having mono - Diet has improved - Has lost 15 lb HISTORY REVIEWED (electronic chart updated): - medical history - medications - allergies REVIEW OF SYSTEMS: General: Feels fatigued, +weight loss (intentional) +somnolence, no fever or chills. HEENT: No sinus congestion, earache, sore throat. Not aware of snoring or other sleep disturbance. Cardiac: No chest pain, palpitations Resp: No cough, wheeze, shortness of breath GI: No reflux symptoms, food intolerance, bowel changes. : No urinary frequency, dysuria. MS: No pain or joint complaints. PHYSICAL EXAMINATION: VIDEO EXAM: performed via video enabled technology No exam performed No physical exam performed today (phone encounter). Data Reviewed: Component Latest Ref Rng & Units 02/14/2023 Glucose 74 - 99 mg/dL 82 BUN 7 - 21 mg/dL 8 Creatinine 0.58 - 0.96 mg/dL 0.91 Sodium 136 - 144 mmol/L 142 Potassium 3.7 - 5.1 mmol/L 4.4 Chloride 97 - 105 mmol/L 104 CO2 22 - 30 mmol/L 25 Anion Gap 9 - 18 mmol/L 13 Calcium 8.5 - 10.2 mg/dL 9.5 eGFR >=60 mL/min/1.73m 76 Cholesterol, Total <200 mg/dL 184 Triglyceride <150 mg/dL 108 HDL Cholesterol >39 mg/dL 57 Non HDL Cholesterol <130 mg/dL 127 Fasting Time hrs 12 VLDL Cholesterol <30 mg/dL 22 TC:HDL Ratio <5.10 3.23 LDL Cholesterol <100 mg/dL 105 (H) LDL:HDL Ratio <2.54 1.84 TSH 0.270 - 4.200 mIU/L 2.980 ASSESSMENT/PLAN: This encounter occurred by zoom over the course of 13.5 minutes. (R53.83) Fatigue, unspecified type (primary encounter diagnosis) Comment: progressive, but iwthout apparent trigger. . Will check labs Plan: CBC, IRON + TIBC (E03.9) Acquired hypothyroidism Comment: TSH was minimally above optimal per last lab. Will increase levothyroxine and recheck lab Plan: T4 FREE/FREE THYROX, TSH BLD Start levothyroxine (LEVOXYL) 25 mcg tablet once daily in addition to the 100 mcg tablet (R40.0) Daytime somnolence Comment: more noteworthy over time. As above, no strong indication as to why. Plan: CONSULT TO SLEEP MEDICINE - ADULT Requested Prescriptions Signed Prescriptions Disp Refills levothyroxine (LEVOXYL) 25 mcg tablet 90 tablet 0 Sig: Take 1 tablet by mouth once daily. Take on empty stomach. For Thyroid. In addition to the 100 mcg dose tablet . RTO: as needed Scribe Attestation: By signing my name below, IJami, attest that this documentation has been prepared under the direction and in the presence of Scout Madrigal M.D.. Electronically Signed: Kp Alvarez. March 14, 2023 9:52 AM. This telehealth encounter is provided under a state of emergency due to COVID19 and is for care for condition where providing the care is supportive of minimizing potential exposure and/or transmission of COVID19. Provider Attestation: Kathy Rojas MD, personally performed the services described in this documentation. All medical record entries made by the scribe were at my direction and in my presence. I have reviewed the chart and discharge instructions (if applicable), and agree that the record reflects my personal performance and is accurate and complete. Electronically Signed: Kathy Madrigal MD March 14, 2023 1:06 PM documented in this encounter [facility] 03-05-2023 History of Presen t illness Narrative Radiology Service Progress Note PATIENT NAME: Madison Delacruz DATE OF SERVICE: March 05, 2023 TIME: 2:42 PM PATIENT IDENTITY VERIFICATION COMPLETED USING TWO (2) IDENTIFIERS: Name and Date of confirmed by patient verbally. FALL SCREENING: Has the patient had 2 falls in the last year or 1 fall with injury or currently using an Ambulatory Assistive Device (Walker, Cane, Wheelchair, Crutches, etc.)? No PATIENT GENDER DATA: Female. status: : No status: NO. PATIENT RELEVANT IMPLANT DATA REVIEWED: Not Applicable RADIOLOGY DEPARTMENT: Mammography PERIPHERAL IV DATA: Not applicable SIGNED BY: Oumou Stroud March 05, 2023 2:42 PM documented in this encounter [facility] 02-08-2023 Miscellaneous Notes Called patient and made appt Due for fasting labs, please get done BRITNI. Also due for office visit, schedule as 40 minute physical with either provider. Lorena Blum APRN.FRED Last appointment: 12/15/21 Next appointment: NA Pharmacy verified in [place]. Refill(s) requested: Requested Prescriptions Pending Prescriptions Disp Refills lisinopril (ZESTRIL) 10 mg tablet 90 tablet 3 Sig: Take 1 tablet by mouth once daily. Order(s) pended. Please advise,thank you. Rosa Maria SNEED February 08, 2023 2:02 PM documented in this encounter [facility] 07-24-2022 Miscellaneous Notes Pharmacy verified in [facility] Patient has been identified by name and date of : Yes Patient aware RX will be sent to pharmacy. No need to notify patient. Patient phones for refill(s): Requested Prescriptions Pending Prescriptions Disp Refills busPIRone (BUSPAR) 10 mg tablet 60 tablet 0 Sig: Take 1 tablet by mouth three times daily. Date of last office visit : 12/15/2021 Date of next office visit : Visit date not found Last 2 Encounter Wt Readings: Date: Wt: 04/13/2022 68.7 kg (151 lb 6.4 oz) 02/10/2022 69 kg (152 lb 3.2 oz) Not applicable Please advise. Thania Costello documented in this encounter [facility] 04-13-2022 History of Presen t illness Narrative CC: Patient presents with: Pain, Throat: Pain rated 3, x1 day. HPI: Madison Delacruz is a 52 year old female who presents to the office with complaint of sore throat for the past day. Symptoms are staying the same. Associated symptoms includes sore throat. Denies fever, nausea, vomiting , and diarrhea. Treatments tried include nothing so far. with no relief of symptoms. Sick contacts: unknown. History of asthma, frequent episodes of bronchitis, chronic bronchitis, bronchiectasis or COPD: No Smoker: No Seasonal/environmental allergies: no The ROS is otherwise negative. The patient's pmh, medications, allergies, and past visits are reviewed. PHYSICAL EXAM: BP 128/76 Pulse 63 Temp 36.1 C (97 F) Resp (!) 185 Wt 68.7 kg (151 lb 6.4 oz) LMP 09/07/2013 SpO2 100% BMI 25.19 kg/m General appearance: alert, cooperative, pleasant, in no acute distress Head: Normocephalic Eyes: EOM's intact, conjunctiva pink and moist, no icterus, sclera white, non-injected Ears: Right ear: External ear/canal- Normal, TM - clear with good landmarks. Left ear: External ear/canal- Normal, TM - clear with good landmarks Oropharynx:moist without lesions, No erythema, exudates or tonsillar hypertrophy. Heart: Negative. RRR without obvious murmur, gallop, or rubs. No ectopy. 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 Hypertension Migraine, unspecified, without mention of intractable migraine without mention of status migrainosus has 0-3 per month Mixed anxiety and depressive disorder Unspecified hypothyroidism 2007 Dr. Maurer PAST SURGICAL HISTORY Procedure Laterality Date ABDOMINAL SURGERY HX SECTION HX 03/2011 COLONOSCOPY FLX DX W/COLLJ SPEC WHEN PFRMD 05/11/2021 repeat in 5 years EXTRACTION, ERUPTED TOOTH OR EXPOSED ROOT (ELEVATION AND/OR FORCEPS REMOVAL) 1998 ALLERGIES Bees, Erythromycin, and Kiwi MEDICATIONS estradiol 4 mcg vaginal suppository maintenance pack (IMVEXXY) Use 1 Suppository vaginally two times a week. lisinopril (ZESTRIL, PRINIVIL) 10 mg tablet Take 1 tablet by mouth once daily. montelukast (SINGULAIR) 10 mg tablet TAKE 1 TABLET BY MOUTH EVERYDAY AT BEDTIME estradiol (ESTRACE) 0.01 % (0.1 mg/gram) vaginal cream Use 1 g vaginally two times a week. levothyroxine (SYNTHROID) 100 mcg tablet Take 1 tablet by mouth once daily. busPIRone (BUSPAR) 10 mg tablet Take 1 tablet by mouth three times daily. (Patient taking differently: Take 10 mg by mouth as needed.) meclizine (ANTIVERT) 25 mg tab Take 1 tablet by mouth three times daily as needed (dizziness). citalopram (CELEXA) 20 mg tablet Take 1.5 tablets by mouth once daily. (Patient taking differently: Take 20 mg by mouth once daily.) FOLBIC 2.5-25-2 mg tab TAKE 1 TABLET BY MOUTH ONCE DAILY. EPINEPHrine (EPIPEN) 0.3 mg/0.3 mL auto-injector As instructed, when needed fluticasone (FLONASE) 50 mcg/actuation nasal spray USE 2 SPRAYS IN EACH NOSTRIL ONCE DAILY. aspirin, enteric coated (ASPIRIN, ENTERIC COATED) 81 mg EC tablet Take 1 tablet by mouth once daily. Melatonin 5 mg tab Take 1 tablet by mouth daily at bedtime. Doxycycline Monohydrate 40 mg capsule TAKE 1 CAPSULE BY MOUTH EVERY DAY (Patient not taking: Reported on 04/13/2022) VOL-TAB RX 29 mg iron- 1 mg tab TAKE 1 TABLET BY MOUTH ONCE DAILY. (Patient not taking: Reported on 12/15/2021) FAMILY HISTORY Problem Relation Age of Onset Coronary Artery Disease Father CABG twice - first age 55 other (leukemia) Father AML(?) - age 78 Diabetes Mother age 72 - diet controlled Coronary Artery Disease Mother [place] age 73 Stroke Paternal Uncle age 60 Cancer Maternal Aunt in 30's - colon? Social History Tobacco Use Smoking status: Never Smokeless tobacco: Never Vaping Use Vaping Use: Never used Substance Use Topics Alcohol use: Yes Comment: occasional Drug use: No ASSESSMENT/PLAN: 1. At increased risk of exposure to COVID-19 virus - ICD9: V15.89, ICD10: Z91.89 - COVID WITH FLUA+B, ROUTINE Prescription instructions reviewed with patient as applicable. Potential red flag symptoms discussed with the patient. Reviewed appropriate action plan to take if red flag symptoms occur. Patient agreeable to treatment plan. Dayan Bedolla APRN.FRED documented in this encounter [facility] 03-01-2022 Miscellaneous Notes The following approved medication requests have been transmitted electronically. Requested Prescriptions Signed Prescriptions Disp Refills lisinopril (ZESTRIL, PRINIVIL) 10 mg tablet 90 tablet 3 Sig: Take 1 tablet by mouth once daily. Authorizing Provider: KATHY MADRIGAL MD Pharmacy verified in [facility] Patient has been identified by name and date of : Yes Patient aware RX will be sent to pharmacy. No need to notify patient. Pharmacy phones for refill(s): Requested Prescriptions Pending Prescriptions Disp Refills lisinopril (ZESTRIL, PRINIVIL) 10 mg tablet 90 tablet 3 Sig: Take 1 tablet by mouth once daily. Date of last office visit : 12/15/2021 Date of next office visit : Visit date not found Last 2 Encounter Wt Readings: Date: Wt: 02/10/2022 69 kg (152 lb 3.2 oz) 12/15/2021 68.9 kg (152 lb) Blood Pressure: BUN (mg/dL) Date Value 07/15/2021 13 03/12/2020 20 Creatinine (mg/dL) Date Value 07/15/2021 0.83 03/12/2020 0.93 Sodium (mmol/L) Date Value 07/15/2021 139 03/12/2020 140 Potassium (mmol/L) Date Value 07/15/2021 4.1 03/12/2020 4.2 Last 1 Encounter BP Readings: Date: BP: 02/10/2022 120/80 Please advise. Belkis Celis LPN Patient has been identified by name and date of : Yes Requested Prescriptions Pending Prescriptions Disp Refills lisinopril (ZESTRIL, PRINIVIL) 10 mg tablet 90 tablet 3 Sig: Take 1 tablet by mouth once daily. RX INSTRUCTIONS: Pharmacy initiated this request. No need to notify patient. Alma Calvillo Pss documented in this encounter [facility] 02-06-2022 Miscellaneous Notes Pharmacy verified in [facility] Patient has been identified by name and date of : Yes Patient aware RX will be sent to pharmacy. No need to notify patient. Patient phones for refill(s): Requested Prescriptions Pending Prescriptions Disp Refills montelukast (SINGULAIR) 10 mg tablet [Pharmacy Med Name: MONTELUKAST SOD 10 MG TABLET] 90 tablet 0 Sig: TAKE 1 TABLET BY MOUTH EVERYDAY AT BEDTIME Date of last office visit : 12/15/2021 Date of next office visit : Visit date not found Last 2 Encounter Wt Readings: Date: Wt: 12/15/2021 68.9 kg (152 lb) 02/05/2021 67.5 kg (148 lb 12.8 oz) Not applicable Please advise. Belkis Celis LPN documented in this encounter [facility] 01-25-2022 Miscellaneous Notes filed PSS- Please contact patient and assist with scheduling annual exam. Thank you. Requested Prescriptions Pending Prescriptions Disp Refills estradiol (ESTRACE) 0.01 % (0.1 mg/gram) vaginal cream 126 g 0 Sig: Use 1 g vaginally two times a week. Last annual exam: 12/31/20 Please approve the above prescription(s) to electronically send to pharmacy. Tana Hammond RN documented in this encounter [facility] 12-16-2021 Miscellaneous Notes December 16, 2021 PID: [id number] Madison Delacruz [address] [place] [address] Dear Ms. Delacruz, We are pleased to inform you that the results of your recent breast imaging exam on 12/16/2021 are normal. Early detection of cancer is very important. We also understand recommendations regarding breast cancer screening are controversial. Please discuss with your primary care provider which strategy is best for you and whether a mammogram is right for you. Your imaging studies and report will be kept on file at [facility] as part of your permanent medical record and are available for your continuing care. Thank you for allowing us to help in meeting your health care needs. Sincerely, Dr. Ordonez Interpreting Radiologist [facility] (Normal over 40) documented in this encounter [facility] 12-16-2021 History of Presen t illness Narrative Radiology Service Progress Note PATIENT NAME: Madison Delacruz DATE OF SERVICE: December 16, 2021 TIME: 7:28 AM PATIENT IDENTITY VERIFICATION COMPLETED USING TWO (2) IDENTIFIERS: Name and Date of confirmed by patient verbally. FALL SCREENING: Has the patient had 2 falls in the last year or 1 fall with injury or currently using an Ambulatory Assistive Device (Walker, Cane, Wheelchair, Crutches, etc.)? No PATIENT GENDER DATA: Female. status: : No status: NO. PATIENT RELEVANT IMPLANT DATA REVIEWED: Not Applicable RADIOLOGY DEPARTMENT: Mammography PERIPHERAL IV DATA: Not applicable SIGNED BY: RT Wanda(R) December 16, 2021 7:28 AM documented in this encounter [facility] 12-15-2021 History of Presen t illness Narrative CHIEF COMPLAINT Patient presents with: Recheck HISTORY OF PRESENT ILLNESS Madison Delacruz is a 51 year old female who presents here today for follow up management of multiple medical issues. I last saw this patient on 09/13/21. Hypothyroidism Patient is managed on Synthroid Patient has been fatigued. Labs therapeutic a few mos ago Adj d/o mixed Patient is managed on Buspar 10 mg and Celexa 20 mg She says that her mood has been good. She acknowledges fatigue, but not thinking the meds are the source. Hypertension Patient is managed on lisinopril adherent to current regimen without side effects from medication. No current symptoms. Allergies, halfway use of Singulair. Not aware of side effects from Singulair. Adequate control, she has not gone without the Singulair. Health Maintenance Due for Shingrix series Due for COVID booster Due for routine pap testing. Due for HPV testing. Due for mammogram. Labs reviewed. Past medical history, appointments, medications, allergies reviewed. REVIEW OF SYSTEMS Pertinent positives/ negatives: General: Feels well, no fever, no chills +fatigue. HEENT: No sinus congestion, earache, sore throat. Cardiac: No chest pain, palpitations Resp: No cough, wheeze, shortness of breath GI: No reflux symptoms, food intolerance, bowel changes. : No urinary frequency, dysuria. MS: No pain or joint complaints. 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 Hypertension Migraine, unspecified, without mention of intractable migraine without mention of status migrainosus has 0-3 per month Mixed anxiety and depressive disorder Unspecified hypothyroidism 2007 Dr. Maurer PHYSICAL EXAMINATION BP 115/77 Pulse (!) 58 Ht 165.1 cm (5' 5) Wt 68.9 kg (152 lb) LMP 09/07/2013 SpO2 99% BMI 25.29 kg/m General: Alert, well developed, well nourished, no distress, pleasant and cooperative. thryoidectomy scar noted. No swelling there. No adenopathy. Heart: Regular rate and rhythm. Normal S1 and S2. No murmurs, rubs, or gallops. Lungs: Clear to auscultation bilaterally. No respiratory distress. No wheezes, rales, or rhonchi. Abdomen: Soft, non-tender, no distention. Extremities: Feet/ankles without edema, posterior tibial pulses full and symmetrical. No rash. Data Reviewed 12/10/21 CBC- within normal limits July, normal CMP and TSH Assessment/Plan (I10) Essential hypertension (primary encounter diagnosis) Comment: blood pressure well controlled in office Plan: continue on current regimen (E03.9) Acquired hypothyroidism Comment: patient having increased fatigue, but no other sign of change in thyroi status Plan: levothyroxine (SYNTHROID) 100 mcg tablet Try without the singulair on off chance that that's making her tired. (F41.8) Mixed anxiety and depressive disorder Comment: well controlled Plan: continue on current regimen (Z23) COVID-19 vaccine administered Comment: Due for COVID booster Plan: [employer] COVID-19 VACCINE, AGE 12+ YR ([place]) Signed Prescriptions Disp Refills levothyroxine (SYNTHROID) 100 mcg tablet 90 tablet 2 Sig: Take 1 tablet by mouth once daily. SHERIN: No RTO: 6 months Scribe Attestation: By signing my name below, IKeely, attest that this documentation has been prepared under the direction and in the presence of Scout Madrigal M.D. Electronically Signed: Kp Dillon. December 15, 2021 7:47 AM Provider Attestation: IKathy MD, personally performed the services described in this documentation. All medical record entries made by the scribe were at my direction and in my presence. I have reviewed the chart and discharge instructions (if applicable) and agree that the record reflects my personal performance and is accurate and complete. Electronically Signed: Kathy Madrigal MD. December 15, 2021 11:02 AM documented in this encounter [facility] 09-13-2021 History of Presen t illness Narrative This Team Access Model visit is a virtual encounter. It required patient-provider interaction for the medical decision making as documented below. The patient consented to proceed by video encounter before initiating the encounter. DISTANCE HEALTH VISIT Madison Delacruz is a 51 year old female seen for evaluation of left foot and leg pain. Left Leg Pain Patient has been having pain in her left foot and leg. She has had sciatic pain in the past. She has had the pain for over a week. The pain is located on the lateral side of her left vick. Patient denies swelling in her leg and also denies any upper back pain. She has been taking Tylenol for the pain but it has not relieved any of the pain. Patient has been using a heating pad, Voltaren and Bio-freeze. She has had a sensation like this before. HISTORY REVIEWED (electronic chart updated): - medical history - medications - allergies REVIEW OF SYSTEMS: General: Feels well, no weight changes, fever, chills. HEENT: No sinus congestion, earache, sore throat. Cardiac: No chest pain, palpitations Resp: No cough, wheeze, shortness of breath GI: No reflux symptoms, food intolerance, bowel changes. : No urinary frequency, dysuria. MS: +left leg pain +left foot pain +sciatica PHYSICAL EXAMINATION: VIDEO EXAM: performed via video enabled technology GENERAL: alert and appropriate, in no distress and well-hydrated, well nourished Data Reviewed: 07/15/21 HIV- negative Hep C- negative CMP- within normal limits TSH- within normal limits ASSESSMENT/PLAN: This encounter occurred by video encounter over the course of 12 minutes. (M54.32) Left sided sciatica (primary encounter diagnosis) Comment: Patients pain primarily in leg. Pain not being relieved by Tylenol Plan: CONSULT TO PHYSICAL THERAPY -advised patient to use either ibuprofen or Aleve for pain. If pain is not alleviated with medication then consult to PT. No medications selected for refill. RTO: PRN Scribe Attestation: By signing my name below, IKeely, attest that this documentation has been prepared under the direction and in the presence of Scout Madrigal M.D.. Electronically Signed: Kp Dillon. September 13, 2021 1:26 PM. This telehealth encounter is provided under a state of emergency due to COVID19 and is for care for condition where providing the care is supportive of minimizing potential exposure and/or transmission of COVID19. Provider Attestation: Kathy Rojas MD, personally performed the services described in this documentation. All medical record entries made by the scribe were at my direction and in my presence. I have reviewed the chart and discharge instructions (if applicable) and agree that the record reflects my personal performance and is accurate and complete. Electronically Signed: Kathy Madrigal MD. September 14, 2021 8:49 AM documented in this encounter [facility] 09-06-2021 Miscellaneous Notes Pharmacy verified in [place]. Patient has been identified by name and date of : Yes Patient aware RX will be sent to pharmacy. No need to notify patient. Patient phones for refill(s): Pending Prescriptions Disp Refills BUSPIRONE 10 MG TABLET 60 tablet 0 Sig: Take 1 tablet by mouth three times daily. SHERIN: No Date of last office visit : 03/12/2020 Date of next office visit : Visit date not found Last 2 Encounter Wt Readings: Date: Wt: 02/05/2021 67.5 kg (148 lb 12.8 oz) 12/31/2020 67.2 kg (148 lb 3.2 oz) Not applicable Please advise. Christine Davis MA documented in this encounter [facility] 02-07-2021 Miscellaneous Notes Pt pos Patient reports she is having covid s/s: throat not sore, but feels funny, chest congestion, runny nose, cough. Did a home rapid test, that was positive but not sure if she did it correctly. Wants pcp to order PCR covid test. Advised pcp would not get this message until Sunday at earliest. Patient states she does not want to wait that long, and will go to instead. Reviewed below instructions with patient. WHAT TO DO IF YOU ARE SICK WITH CORONAVIRUS DISEASE 2019 (COVID-19) If you are sick with COVID-19 or think you might have COVID-19, follow the steps below to care for yourself and to help protect other people in your home and community. Stay home except to get medical care Stay home. Most people with COVID-19 have mild illness and can recover at home without medical care. Do not leave your home, except to get medical care. Do not visit public areas. Take care of yourself. Get rest and stay hydrated. Take [id number]-qcrfaua medicines, such as acetaminophen, to help you feel better. Stay in touch with your doctor. Call before you get medical care. Be sure to get care if you have trouble breathing, or have any other emergency warning signs, or if you think it is an emergency. Avoid public transportation, ride-sharing, or taxis. Separate yourself from other people As much as possible, stay in a specific room and away from other people and pets in your home. If possible, you should use a separate bathroom. If you need to be around other people or animals in or outside of the home, wear a mask. Tell your close contacts that they may have been exposed to COVID-19. An infected person can spread COVID-19 starting 48 hours (or 2 days) before the person has any symptoms or tests positive. By letting your close contacts know they may have been exposed to COVID-19, you are helping to protect everyone. Additional guidance is available for those living in close quarters and shared housing. See COVID-19 and Animals if you have questions about pets. If you are diagnosed with COVID-19, someone from the health department may call you. Answer the call to slow the spread. When you can be around others after you had or likely had COVID-19 I think or know I had COVID-19, and I had symptoms You can be with others after At least 10 days since symptoms first appeared and At least 24 hours with no fever without fever-reducing medication and Other symptoms of COVID-19 are improvingLoss of taste and smell may persist for weeks or months after recovery and need not delay the end of isolation If you had severe illness from COVID-19 (you were admitted to a hospital and needed oxygen), your healthcare provider may recommend that you stay in isolation for longer than 10 days after your symptoms first appeared (possibly up to 20 days) and you may need to finish your period of isolation at home. I tested positive for COVID-19 but had no symptoms If you continue to have no symptoms, you can be with others after: 10 days have passed since the date you had your positive test If you develop symptoms after testing positive, follow the guidance above for I think or know I had COVID, and I had symptoms. I had COVID-19 or I tested positive for COVID-19 and I have a weakened immune system If you have a weakened immune system (immunocompromised) due to a health condition or medication, you might need to stay home and isolate longer than 10 days. Talk to your healthcare provider for more information. Your doctor may work with an infectious disease expert at your local health department to determine when you can be around others. Monitor your symptoms Symptoms of COVID-19 include fever, cough, or other symptoms. Follow care instructions from your healthcare provider and local health department. Your local health authorities may give instructions on checking your symptoms and reporting information. When to seek emergency medical attention Look for emergency warning signs* for COVID-19. If someone is showing any of these signs, seek emergency medical care immediately: Trouble breathing Persistent pain or pressure in the chest New confusion Inability to wake or stay awake Bluish lips or face *This list is not all possible symptoms. Please call your medical provider for any other symptoms that are severe or concerning to you. Call 911 or call ahead to your local emergency facility: Notify the hide measuring machine operator that you are seeking care for someone who has or may have COVID-19. Call ahead before visiting your doctor Call ahead. Many medical visits for routine care are being postponed or done by phone or telemedicine. If you have a medical appointment that cannot be postponed, call your doctor s office, and tell them you have or may have COVID-19. This will help the office protect themselves and other patients. If you are sick, wear a mask over your nose and mouth You should wear a mask over your nose and mouth if you must be around other people or animals, including pets (even at home). You don t need to wear the mask if you are alone. If you can t put on a mask (because of trouble breathing, for example), cover your coughs and sneezes in some other way. Try to stay at least 6 feet away from other people. This will help protect the people around you. Masks should not be placed on young children under age 2 years, anyone who has trouble breathing, or anyone who is not able to remove the mask without help. Note: During the COVID-19 pandemic, medical grade facemasks are reserved for healthcare workers and some first responders. Cover your coughs and sneezes Cover your mouth and nose with a tissue when you cough or sneeze. Throw away used tissues in a lined trash can. Immediately wash your hands with soap and water for at least 20 seconds. If soap and water are not available, clean your hands with an alcohol-based hand emergency response coordinator that contains at least 60% alcohol. Clean your hands often Wash your hands often with soap and water for at least 20 seconds. This is especially important after blowing your nose, coughing, or sneezing; going to the bathroom; and before eating or preparing food. Use hand emergency response coordinator if soap and water are not available. Use an alcohol-based hand emergency response coordinator with at least 60% alcohol, covering all surfaces of your hands and rubbing them together until they feel dry. Soap and water are the best option, especially if hands are visibly dirty. Avoid touching your eyes, nose, and mouth with unwashed hands. Avoid sharing personal household items Do not share dishes, drinking glasses, cups, eating utensils, towels, or bedding with other people in your home. Wash these items thoroughly after using them with soap and water or put in the direct marketing coordinator. Clean all high-touch surfaces everyday Clean and disinfect high-touch surfaces in your sick room and bathroom; wear disposable gloves. Let someone else clean and disinfect surfaces in common areas, but you should clean your bedroom and bathroom, if possible. If a caregiver or other person needs to clean and disinfect a sick person s bedroom or bathroom, they should do so on an as-needed basis. The caregiver/other person should wear a mask and disposable gloves prior to cleaning. They should wait as long as possible after the person who is sick has used the bathroom before coming in to clean and use the bathroom. High-touch surfaces include phones, remote controls, counters, tabletops, doorknobs, bathroom fixtures, toilets, keyboards, tablets, and bedside tables. Clean and disinfect areas that may have blood, stool, or body fluids on them. o Use household finish machine tender and disinfectants. Clean the area or item with soap and water or another detergent if it is dirty. Then, use a household disinfectant. o Be sure to follow the instructions on the label to ensure safe and effective use of the product. Many products recommend keeping the surface wet for several minutes to ensure germs are killed. Many also recommend precautions such as wearing gloves and making sure you have good ventilation during use of the product. o Most EPA-registered household disinfectants should be effective. Updated 03.24.2020 Source: https://www.cdc.gov/coronavirus/ 2019-ncov/ir-wvb-zwj-sick/steps- when-sick.html documented in this encounter [facility] 08-25-2009 History of Past i llness Narrative Problem Noted Date Resolved Date Routine gynecological examination 08/25/2009 09/22/2016 Overview: Dr. Cristina documented as of this encounter (statuses as of 09/06/2021) [facility]04[facility]14[facility]2010 History of Past illness Narrative* Problem Noted Date Resolved Date Routine gynecological examination 08/25/2009 09/22/2016 Overview: Dr. Cristina documented as of this encounter (statuses as of 09/06/2021) [facility]2010 History of Past illness Narrative* Problem Noted Date Resolved Date Routine gynecological examination 08/25/2009 09/22/2016 Overview: Dr. Cristina documented as of this encounter (statuses as of 09/14/2021) [facility] History of Past illness Narrative* Problem Noted Date Resolved Date Routine gynecological examination 08/25/2009 09/22/2016 Overview: Dr. Cristina documented as of this encounter (statuses as of 12/15/2021) [facility] History of Past illness Narrative* Problem Noted Date Resolved Date Routine gynecological examination 08/25/2009 09/22/2016 Overview: Dr. Cristina documented as of this encounter (statuses as of 12/17/2021) [facility] History of Past illness Narrative* Problem Noted Date Resolved Date Routine gynecological examination 08/25/2009 09/22/2016 Overview: Dr. Cristina documented as of this encounter (statuses as of 12/20/2021) [facility] History of Past illness Narrative* Problem Noted Date Resolved Date Routine gynecological examination 08/25/2009 09/22/2016 Overview: Dr. Cristina documented as of this encounter (statuses as of 01/25/2022) [place] [address]-14-2010 History of Past illness Narrative* Problem Noted Date Resolved Date Routine gynecological examination 08/25/2009 09/22/2016 Overview: Dr. Cristina documented as of this encounter (statuses as of 02/06/2022) [place] [address]-14-2010 History of Past illness Narrative* Problem Noted Date Resolved Date Routine gynecological examination 08/25/2009 09/22/2016 Overview: Dr. Cristina documented as of this encounter (statuses as of 03/02/2022) [place] [address]14-2010 History of Past illness Narrative* Problem Noted Date Resolved Date Routine gynecological examination 08/25/2009 09/22/2016 Overview: Dr. Cristina documented as of this encounter (statuses as of 04/13/2022) [place] [address]-14-2010 History of Past illness Narrative* Problem Noted Date Resolved Date Routine gynecological examination 08/25/2009 09/22/2016 Overview: Dr. Cristina documented as of this encounter (statuses as of 05/17/2022) [place] [address]-14-2010 History of Past illness Narrative* Problem Noted Date Resolved Date Routine gynecological examination 08/25/2009 09/22/2016 Overview: Dr. Cristina documented as of this encounter (statuses as of 07/24/2022) [place] [address]-14-2010 History of Past illness Narrative* Problem Noted Date Resolved Date Routine gynecological examination 08/25/2009 09/22/2016 Overview: Dr. Cristina documented as of this encounter (statuses as of 09/12/2022) [place] [address]14-2010 History of Past illness Narrative* Problem Noted Date Diagnosed Date Resolved Date Routine gynecological examination 08/25/2009 09/22/2016 Overview: Dr. Cristina documented as of this encounter (statuses as of 02/05/2023) [place] [address]14-2010 History of Past illness Narrative* Problem Noted Date Diagnosed Date Resolved Date Routine gynecological examination 08/25/2009 09/22/2016 Overview: Dr. Cristina documented as of this encounter (statuses as of 02/09/2023) [place] [address]-14-2010 History of Past illness Narrative* Problem Noted Date Diagnosed Date Resolved Date Routine gynecological examination 08/25/2009 09/22/2016 Overview: Dr. Cristina documented as of this encounter (statuses as of 02/17/2023) [place] [address]14-2010 History of Past illness Narrative* Problem Noted Date Diagnosed Date Resolved Date Routine gynecological examination 08/25/2009 09/22/2016 Overview: Dr. Cristina documented as of this encounter (statuses as of 03/12/2023) [place] [address]14-2010 History of Past illness Narrative* Problem Noted Date Diagnosed Date Resolved Date Routine gynecological examination 08/25/2009 09/22/2016 Overview: Dr. Cristina documented as of this encounter (statuses as of 03/14/2023) [place] [address]14-2010 History of Past illness Narrative* Problem Noted Date Diagnosed Date Resolved Date Routine gynecological examination 08/25/2009 09/22/2016 Overview: Dr. Cristina documented as of this encounter (statuses as of 03/17/2023) [place] [address]14-2010 History of Past illness Narrative* Problem Noted Date Diagnosed Date Resolved Date Routine gynecological examination 08/25/2009 09/22/2016 Overview: Dr. Cristina documented as of this encounter (statuses as of 03/18/2023) [place] [address]14-2010 History of Past illness Narrative* Problem Noted Date Diagnosed Date Resolved Date Routine gynecological examination 08/25/2009 09/22/2016 Overview: Dr. Cristina documented as of this encounter (statuses as of 04/20/2023) [place] [address]14-2010 History of Past illness Narrative* Problem Noted Date Diagnosed Date Resolved Date Routine gynecological examination 08/25/2009 09/22/2016 Overview: Dr. Cristina documented as of this encounter (statuses as of 05/01/2023) [place] [address]14-2010 History of Past illness Narrative* Problem Noted Date Diagnosed Date Resolved Date Routine gynecological examination 08/25/2009 09/22/2016 Overview: Dr. Cristina documented as of this encounter (statuses as of 06/14/2023) [place] [address]14-2010 History of Past illness Narrative* Problem Noted Date Diagnosed Date Resolved Date Routine gynecological examination 08/25/2009 09/22/2016 Overview: Dr. Cristina documented as of this encounter (statuses as of 07/06/2023) [place] [address]14-2010 History of Past illness Narrative* Problem Noted Date Diagnosed Date Resolved Date Routine gynecological examination 08/25/2009 09/22/2016 Overview: Dr. Cristina documented as of this encounter (statuses as of 07/12/2023) [place] [address]14-2010 History of Past illness Narrative* Problem Noted Date Diagnosed Date Resolved Date Routine gynecological examination 08/25/2009 09/22/2016 Overview: Dr. Cristina documented as of this encounter (statuses as of 07/16/2023) [place] [address]14-2010 History of Past illness Narrative* Problem Noted Date Diagnosed Date Resolved Date Routine gynecological examination 08/25/2009 09/22/2016 Overview: Dr. Cristina documented as of this encounter (statuses as of 08/03/2023) [place] [address]14-2010 History of Past illness Narrative* Problem Noted Date Diagnosed Date Resolved Date Routine gynecological examination 08/25/2009 09/22/2016 Overview: Dr. Cristina documented as of this encounter (statuses as of 08/06/2023) [address]14-2010 History of Past illness Narrative* Problem Noted Date Diagnosed Date Resolved Date Routine gynecological examination 08/25/2009 09/22/2016 Overview: Dr. Cristina documented as of this encounter (statuses as of 08/23/2023) [facility] note* Diagnosis Mixed anxiety and depressive disorder Dysthymic disorder documented in this encounter [facility] note* Diagnosis Left sided sciatica- Primary Sciatica documented in this encounter [facility] noteNo assessment information availableWAultman Hospital Work Phone: [facility]* Diagnosis Essential hypertension- Primary Unspecified essential hypertension Acquired hypothyroidism Unspecified hypothyroidism Mixed anxiety and depressive disorder Dysthymic disorder COVID-19 vaccine administered Seasonal allergic rhinitis, unspecified trigger documented in this encounter [facility] note* Diagnosis Encounter for screening mammogram for breast cancer documented in this encounter [facility] note* Diagnosis Vaginal dryness Other specified symptom associated with female genital organs documented in this encounter [facility] note* Diagnosis Essential hypertension Unspecified essential hypertension documented in this encounter [facility] note* Diagnosis At increased risk of exposure to COVID-19 virus- Primary documented in this encounter [facility] note* Diagnosis Mixed anxiety and depressive disorder Dysthymic disorder documented in this encounter [facility] note* Diagnosis Essential hypertension Unspecified essential hypertension documented in this encounter [facility] note* Diagnosis Acquired hypothyroidism- Primary Unspecified hypothyroidism Essential hypertension Unspecified essential hypertension Screening for lipid disorders documented in this encounter [facility] note* Diagnosis Encounter for screening mammogram for breast cancer documented in this encounter [facility] note* Diagnosis Fatigue, unspecified type- Primary Acquired hypothyroidism Unspecified hypothyroidism Daytime somnolence Hypersomnia, unspecified documented in this encounter [facility] note* Diagnosis Excessive daytime sleepiness- Primary Fatigue, unspecified type Daytime somnolence Hypersomnia, unspecified Snoring Other dyspnea and respiratory abnormality documented in this encounter [facility] note* Diagnosis Encounter for screening mammogram for breast cancer documented in this encounter [facility] note* Diagnosis Persistent cough for 3 weeks or longer- Primary Sinobronchitis Unspecified sinusitis (chronic) documented in this encounter [facility] note* Diagnosis Mixed anxiety and depressive disorder Dysthymic disorder documented in this encounter [facility] note* Diagnosis Chest wall pain- Primary Painful respiration Costochondritis Tietze's disease documented in this encounter [facility] note* Diagnosis Viral URI- Primary Acute upper respiratory infections of unspecified site documented in this encounter [facility] note* Diagnosis APPOINTMENT CANCELLED- Primary documented in this encounter [facility] note* Diagnosis NORMA (obstructive sleep apnea)- Primary Obstructive sleep apnea (adult) (pediatric) Excessive daytime sleepiness documented in this encounter [facility] note* Diagnosis Chest wall pain- Primary Painful respiration Lipoma of anterior chest wall Persistent cough Cough Acquired hypothyroidism Unspecified hypothyroidism documented in this encounter [facility] note* Diagnosis Persistent cough for 3 weeks or longer documented in this encounter [facility] note* Diagnosis Subacute cough Cough Rib pain on right side Chest pain, unspecified documented in this encounter [facility] note* Diagnosis Hypertension Unspecified essential hypertension Acquired hypothyroidism Unspecified hypothyroidism documented in this encounter [facility] note* Diagnosis Well adult exam- Primary Routine general medical examination at a health care facility Acquired hypothyroidism Unspecified hypothyroidism Primary hypertension Unspecified essential hypertension Mixed anxiety and depressive disorder Dysthymic disorder Seasonal allergic rhinitis, unspecified trigger Bee sting allergy Allergy to insects and arachnids documented in this encounter [facility] note* Diagnosis Encounter for screening mammogram for breast cancer documented in this encounter [facility] note* Diagnosis Mixed anxiety and depressive disorder Dysthymic disorder documented in this encounter [facility] note* Diagnosis Encounter for gynecological examination (general) (routine) without abnormal findings- Primary Encounter for screening mammogram for breast cancer Vaginal atrophy Postmenopausal atrophic vaginitis documented in this encounter [facility] note* Diagnosis Mixed anxiety and depressive disorder Dysthymic disorder documented in this encounter [facility] note* Diagnosis Shoulder strain, right, initial encounter- Primary Seasonal allergic rhinitis, unspecified trigger Acquired hypothyroidism Unspecified hypothyroidism Mixed anxiety and depressive disorder Dysthymic disorder documented in this encounter [facility] for referral (narrative)* Diagnostic Procedure Only (Routine) - Closed Specialty Diagnoses / Procedures Referred By Contac t Referred To Contact [facility] Diagnoses Encounter for screening mammogram for breast cancer Procedures [facility] SCREENING SCREENING MAMMOGRAPHY BI 2-VIEW BREAST INC CAD Jorge Barreto MD [address] [place] [address] [facility] [address] [facility] [place] [address] Referral ID Status Reason Start Date Expiration Date V isits Requested Visits Authorized [id number] Closed Auto-Generate d Referral 12/31/2020 01/30/2022 1 1 [facility] for referral (narrative)* Diagnostic Procedure Only (Routine) - Pending Review Specialty Diagnoses / Procedures Referred By Contac t Referred To Contact [facility] Diagnoses Encounter for screening mammogram for breast cancer Procedures [facility]YA SCREENING SCREENING MAMMOGRAPHY BI 2-VIEW BREAST INC CAD Jossy, Kathy Orr MD [address] [place] [address] [place] [address] [facility] [address] [place] [phone] Referral ID Status Reason Start Date Expiration Date Visits Requested Visits Authorized [id number] Pending Review Auto-Generat ed Referral 04/05/2024 1 1 [facility] for referral (narrative)* Diagnostic Procedure Only (Routine) - Authorized Specialty Diagnoses / Procedures Referred By Contac t Referred To [facility] Diagnoses Excessive daytime sleepiness Snoring Procedures HOME SLEEP APNEA TEST (HSAT) SLEEP STD AIRFLOW HRT RATE&O2 SAT EFFORT JANNETTT Kate Beyer MD [address] [facility], [address] [address] Neurological [place] [id number] [place] [address] Referral ID Status Reason Start Date Expiration Date Visits Requested Visits Authorized [id number] Authorized Auto-Generat ed Referral 03/16/2023 03/15/2024 1 1 [facility] for referral (narrative)* Diagnostic Procedure Only (Routine) - Closed Specialty Diagnoses / Procedures Referred By Contac t Referred To Contact [facility] Diagnoses Encounter for screening mammogram for breast cancer Procedures [facility] SCREENING SCREENING MAMMOGRAPHY BI 2-VIEW BREAST INC Jorge Lane MD [address] [place] [address] [facility] [address] [place] [address] Referral ID Status Reason Start Date Expiration Date V isits Requested Visits Authorized [id number] Closed Auto-Generate d Referral 02/10/2022 03/12/2023 1 1 [facility] for referral (narrative)* Diagnostic Procedure Only (Urgent) - Closed Specialty Diagnoses / Procedures Referred By Gertrude t Referred To Contact [facility] Diagnoses Subacute cough Rib pain on right side Procedures XR RIBS/CHEST 3V AP RIB/OBLS/CXR RIGHT RADEX RIBS UNI W/POSTEROANT CH MINIMUM 3 VIEWS [facility] [address] [place] [address] Xr Imaging [facility]95 Referral ID Status Reason Start Date Expiration Date V isits Requested Visits Authorized [id number] Closed Auto-Generate d Referral 05/05/2023 06/03/2024 1 1 [facility] for referral (narrative)* Diagnostic Procedure Only (Routine) - Closed Specialty Diagnoses / Procedures Referred By Gabbyac t Referred To Contact [facility] Diagnoses Encounter for screening mammogram for breast cancer Procedures [facility] SCREENING SCREENING MAMMOGRAPHY BI 2-VIEW BREAST INC Jorge Lane MD [address] [place] [address] [facility] [address] [place] [address] Referral ID Status Reason Start Date Expiration Date V isits Requested Visits Authorized [id number] Closed Auto-Generate d Referral 05/04/2023 06/02/2024 1 1 [facility] for referral (narrative)* Diagnostic Procedure Only (Routine) - Authorized Specialty Diagnoses / Procedures Referred By Contac t Referred To Contact [facility] Diagnoses Encounter for screening mammogram for breast cancer Procedures [facility] SCREENING [place] SCREENING DIGITAL BREAST TOMOSYNTHESIS BI SCREENING MAMMOGRAPHY BI 2-VIEW BREAST INC Jorge Lane MD [address] [place] [address] [facility] [address] [place] [address] Referral ID Status Reason Start Date Expiration Date Visits Requested Visits Authorized [id number] Authorized Auto-Generat ed Referral 05/28/2025 1 1 [facility] for visit Narrative* Diagnostic Procedure Only (Routine) - Closed Specialty Diagnoses / Procedures Referred By Gertrude cardenas Referred To Contact [facility] Diagnoses Encounter for screening mammogram for breast cancer Procedures [facility] SCREENING SCREENING MAMMOGRAPHY BI 2-VIEW BREAST INC Jorge Lane MD [address] [place] [address] [facility] [address] [place] [address] Referral ID Status Reason Start Date Expiration Date V isits Requested Visits Authorized [id number] Closed Auto-Generate d Referral 12/31/2020 01/30/2022 1 1 [facility] for visit Narrative* Diagnostic Procedure Only (Routine) - Closed Specialty Diagnoses / Procedures Referred By Gertrude cardenas Referred To Contact [facility] Diagnoses Encounter for screening mammogram for breast cancer Procedures [facility] SCREENING SCREENING MAMMOGRAPHY BI 2-VIEW BREAST INC Jorge Lane MD [address] [place] [address] [facility] [address] [place] [address] Referral ID Status Reason Start Date Expiration Date V isits Requested Visits Authorized [id number] Closed Auto-Generate d Referral 02/10/2022 03/12/2023 1 1 [facility] for visit Narrative* Diagnostic Procedure Only (Urgent) - Closed Specialty Diagnoses / Procedures Referred By Gertrude cardenas Referred To Contact XR IMAGING Diagnoses Subacute cough Rib pain on right side Procedures XR RIBS/CHEST 3V AP RIB/OBLS/CXR RIGHT RADEX RIBS UNI W/POSTEROANT CH MINIMUM 3 VIEWS [facility] [address] [address] [place] [address] [place] [id number] Referral ID Status Reason Start Date Expiration Date V isits Requested Visits Authorized [id number] Closed Auto-Generate d Referral 05/05/2023 06/03/2024 1 1 [facility] Diagnostic Procedure Only (Routine) - Closed Specialty Diagnoses / Procedures Referred By Gertrude cardenas Referred To Contact BR IMAGING Diagnoses Encounter for screening mammogram for breast cancer Procedures SURYA SCREENING SCREENING MAMMOGRAPHY BI 2-VIEW BREAST INC CAD Jorge Barreto MD [address] [place] [address] Br Imaging [address] [place] [address] Referral ID Status Reason Start Date Expiration Date V isits Requested Visits Authorized [id number] Closed Auto-Generate d Referral 05/04/2023 06/02/2024 1 1 [facility] Health Concerns Infection Onset Date Last Indicated Resolved Time COVID-19 Confirmed 02/05/2021 02/05/2021 8:51 PM EDT COVID-19 Rule-Out 02/06/2021 02/05/2021 02/06/2021 7:16 PM EDT Infection Onset Date Last Indicated Resolved Time COVID-19 Rule-Out 04/13/2022 04/13/2022 Advance Directives No Advanced Directives Records FoundDocuments on File Type Date Recorded Patient Fitness Sales Consultant Expl anation Advance Directive(s) 05/11/2021 11:51 AM Advance Directive(s) 03/01/2021 2:41 PM Documents on File Type Date Recorded Patient Fitness Sales Consultant Expl anation Advance Directive(s) 05/11/2021 11:51 AM Advance Directive(s) 03/01/2021 2:41 PM Reason for Referral Specialty Diagnoses / Procedures Referred By Gertrude cardenas Referred To Contact [facility] Diagnoses Left sided sciatica Procedures CONSULT TO PHYSICAL THERAPY PHYSICAL THERAPY EVALUATION HIGH COMPLEX 45 MINS Kathy Madrigal MD [address] [facility] [place] [address] [facility] [place] [address] [place] [address] Referral ID Status Reason Start Date Expiration Date Visits Requested Visits Authorized [id number] Pending Review Auto-Generat ed Referral 09/13/2021 09/13/2022 1 1 Specialty Diagnoses / Procedures Referred By Gertrude t Referred To Contact Diagnoses Fatigue, unspecified type Daytime somnolence Procedures CONSULT TO SLEEP MEDICINE - ADULT OFFICE/OUTPATIENT [facility] MDM 60-74 MINUTES Kathy Madrigal MD [address] [facility] [place] [address] Referral ID Status Reason Start Date Expiration Date Visits Requested Visits Authorized [id number] Authorized PCP Requested Referral 03/14/2023 03/13/2024 1 1 Summary Purpose Family History No Family History Records FoundNo Family History Records Found Additional Source Comments Source Comments (unrecognize d section and content) In the event this informatio n is protected by the Federal Confidentiality of Alcohol and Drug Abuse Patient Records regulations: The Federal rules restrict any use of the information to criminally investigate or prosecute any alcohol or drug abuse patient.[facility] the event this information is protected by the Federal Confidentiality of Alcohol and Drug Abuse Patient Records regulations: The Federal rules restrict any use of the information to criminally investigate or prosecute any alcohol or drug abuse patient.[facility] the event this information is protected by the Federal Confidentiality of Alcohol and Drug Abuse Patient Records regulations: The Federal rules restrict any use of the information to criminally investigate or prosecute any alcohol or drug abuse patient.[facility] the event this information is protected by the Federal Confidentiality of Alcohol and Drug Abuse Patient Records regulations: The Federal rules restrict any use of the information to criminally investigate or prosecute any alcohol or drug abuse patient.[facility] HospitalIn the event this information is protected by the Federal Confidentiality of Alcohol and Drug Abuse Patient Records regulations: The Federal rules restrict any use of the information to criminally investigate or prosecute any alcohol or drug abuse patient.[facility] HospitalIn the event this information is protected by the Federal Confidentiality of Alcohol and Drug Abuse Patient Records regulations: The Federal rules restrict any use of the information to criminally investigate or prosecute any alcohol or drug abuse patient.[facility] HospitalIn the event this information is protected by the Federal Confidentiality of Alcohol and Drug Abuse Patient Records regulations: The Federal rules restrict any use of the information to criminally investigate or prosecute any alcohol or drug abuse patient.[facility] HospitalIn the event this information is protected by the Federal Confidentiality of Alcohol and Drug Abuse Patient Records regulations: The Federal rules restrict any use of the information to criminally investigate or prosecute any alcohol or drug abuse patient.[facility] HospitalIn the event this information is protected by the Federal Confidentiality of Alcohol and Drug Abuse Patient Records regulations: The Federal rules restrict any use of the information to criminally investigate or prosecute any alcohol or drug abuse patient.[facility] HospitalIn the event this information is protected by the Federal Confidentiality of Alcohol and Drug Abuse Patient Records regulations: The Federal rules restrict any use of the information to criminally investigate or prosecute any alcohol or drug abuse patient.[facility] HospitalIn the event this information is protected by the Federal Confidentiality of Alcohol and Drug Abuse Patient Records regulations: The Federal rules restrict any use of the information to criminally investigate or prosecute any alcohol or drug abuse patient.[facility] HospitalIn the event this information is protected by the Federal Confidentiality of Alcohol and Drug Abuse Patient Records regulations: The Federal rules restrict any use of the information to criminally investigate or prosecute any alcohol or drug abuse patient.[facility] HospitalIn the event this information is protected by the Federal Confidentiality of Alcohol and Drug Abuse Patient Records regulations: The Federal rules restrict any use of the information to criminally investigate or prosecute any alcohol or drug abuse patient.[facility] HospitalIn the event this information is protected by the Federal Confidentiality of Alcohol and Drug Abuse Patient Records regulations: The Federal rules restrict any use of the information to criminally investigate or prosecute any alcohol or drug abuse patient.[facility] HospitalIn the event this information is protected by the Federal Confidentiality of Alcohol and Drug Abuse Patient Records regulations: The Federal rules restrict any use of the information to criminally investigate or prosecute any alcohol or drug abuse patient.[facility] HospitalIn the event this information is protected by the Federal Confidentiality of Alcohol and Drug Abuse Patient Records regulations: The Federal rules restrict any use of the information to criminally investigate or prosecute any alcohol or drug abuse patient.[facility] HospitalIn the event this information is protected by the Federal Confidentiality of Alcohol and Drug Abuse Patient Records regulations: The Federal rules restrict any use of the information to criminally investigate or prosecute any alcohol or drug abuse patient.[facility] HospitalIn the event this information is protected by the Federal Confidentiality of Alcohol and Drug Abuse Patient Records regulations: The Federal rules restrict any use of the information to criminally investigate or prosecute any alcohol or drug abuse patient.[facility] HospitalIn the event this information is protected by the Federal Confidentiality of Alcohol and Drug Abuse Patient Records regulations: The Federal rules restrict any use of the information to criminally investigate or prosecute any alcohol or drug abuse patient.[facility] HospitalIn the event this information is protected by the Federal Confidentiality of Alcohol and Drug Abuse Patient Records regulations: The Federal rules restrict any use of the information to criminally investigate or prosecute any alcohol or drug abuse patient.[facility] HospitalIn the event this information is protected by the Federal Confidentiality of Alcohol and Drug Abuse Patient Records regulations: The Federal rules restrict any use of the information to criminally investigate or prosecute any alcohol or drug abuse patient.[facility] HospitalIn the event this information is protected by the Federal Confidentiality of Alcohol and Drug Abuse Patient Records regulations: The Federal rules restrict any use of the information to criminally investigate or prosecute any alcohol or drug abuse patient.[facility] HospitalIn the event this information is protected by the Federal Confidentiality of Alcohol and Drug Abuse Patient Records regulations: The Federal rules restrict any use of the information to criminally investigate or prosecute any alcohol or drug abuse patient.[facility] HospitalIn the event this information is protected by the Federal Confidentiality of Alcohol and Drug Abuse Patient Records regulations: The Federal rules restrict any use of the information to criminally investigate or prosecute any alcohol or drug abuse patient.[facility] HospitalIn the event this information is protected by the Federal Confidentiality of Alcohol and Drug Abuse Patient Records regulations: The Federal rules restrict any use of the information to criminally investigate or prosecute any alcohol or drug abuse patient.[facility] HospitalIn the event this information is protected by the Federal Confidentiality of Alcohol and Drug Abuse Patient Records regulations: The Federal rules restrict any use of the information to criminally investigate or prosecute any alcohol or drug abuse patient.[facility] HospitalIn the event this information is protected by the Federal Confidentiality of Alcohol and Drug Abuse Patient Records regulations: The Federal rules restrict any use of the information to criminally investigate or prosecute any alcohol or drug abuse patient.[facility] HospitalIn the event this information is protected by the Federal Confidentiality of Alcohol and Drug Abuse Patient Records regulations: The Federal rules restrict any use of the information to criminally investigate or prosecute any alcohol or drug abuse patient.[facility] HospitalIn the event this information is protected by the Federal Confidentiality of Alcohol and Drug Abuse Patient Records regulations: The Federal rules restrict any use of the information to criminally investigate or prosecute any alcohol or drug abuse patient.[facility] HospitalIn the event this information is protected by the Federal Confidentiality of Alcohol and Drug Abuse Patient Records regulations: The Federal rules restrict any use of the information to criminally investigate or prosecute any alcohol or drug abuse patient.[facility] HospitalIn the event this information is protected by the Federal Confidentiality of Alcohol and Drug Abuse Patient Records regulations: The Federal rules restrict any use of the information to criminally investigate or prosecute any alcohol or drug abuse patient.[facility] HospitalIn the event this information is protected by the Federal Confidentiality of Alcohol and Drug Abuse Patient Records regulations: The Federal rules restrict any use of the information to criminally investigate or prosecute any alcohol or drug abuse patient.[facility] HospitalIn the event this information is protected by the Federal Confidentiality of Alcohol and Drug Abuse Patient Records regulations: The Federal rules restrict any use of the information to criminally investigate or prosecute any alcohol or drug abuse patient.[facility] HospitalIn the event this information is protected by the Federal Confidentiality of Alcohol and Drug Abuse Patient Records regulations: The Federal rules restrict any use of the information to criminally investigate or prosecute any alcohol or drug abuse patient.[facility] HospitalIn the event this information is protected by the Federal Confidentiality of Alcohol and Drug Abuse Patient Records regulations: The Federal rules restrict any use of the information to criminally investigate or prosecute any alcohol or drug abuse patient.[facility] HospitalIn the event this information is protected by the Federal Confidentiality of Alcohol and Drug Abuse Patient Records regulations: The Federal rules restrict any use of the information to criminally investigate or prosecute any alcohol or drug abuse patient.[facility] HospitalIn the event this information is protected by the Federal Confidentiality of Alcohol and Drug Abuse Patient Records regulations: The Federal rules restrict any use of the information to criminally investigate or prosecute any alcohol or drug abuse patient.[facility] HospitalIn the event this information is protected by the Federal Confidentiality of Alcohol and Drug Abuse Patient Records regulations: The Federal rules restrict any use of the information to criminally investigate or prosecute any alcohol or drug abuse patient.[facility] HospitalIn the event this information is protected by the Federal Confidentiality of Alcohol and Drug Abuse Patient Records regulations: The Federal rules restrict any use of the information to criminally investigate or prosecute any alcohol or drug abuse patient.[facility] HospitalIn the event this information is protected by the Federal Confidentiality of Alcohol and Drug Abuse Patient Records regulations: The Federal rules restrict any use of the information to criminally investigate or prosecute any alcohol or drug abuse patient.[facility] HospitalIn the event this information is protected by the Federal Confidentiality of Alcohol and Drug Abuse Patient Records regulations: The Federal rules restrict any use of the information to criminally investigate or prosecute any alcohol or drug abuse patient.[facility] Reason for Visit (unrecogniz ed section and content) Reason Comments Covid Test Result Reason Onset Date Comments Refill Request 09/06/2021 Reason Comments Back Pain Reason Comments Recheck Reason Onset Date Comments Refill Request 01/22/2022 Reason Comments Refill Request Reason Onset Date Comments Refill Request 03/01/2022 Reason Comments Pain, Throat Pain rated 3, x1 day . Reason Onset Date Comments Refill Request 07/23/2022 Reason Onset Date Comments Refill Request 02/08/2023 Reason Onset Date Comments Refill Request 02/15/2023 Reason Comments Fatigue Reason Comments New Patient Specialty Diagnoses / Procedures Referred By Gertrude cardenas Referred To Contact Diagnoses Fatigue, unspecified type Daytime somnolence Procedures CONSULT TO SLEEP MEDICINE - ADULT OFFICE/OUTPATIENT NEW HIGH MDM 60-74 MINUTES Kathy Madrigal MD [address] [place] [address] [place] [address] Referral ID Status Reason Start Date Expiration Date V isits Requested Visits Authorized [id number] Closed PCP Requested Referral 03/14/2023 03/13/2024 1 1 Reason Comments Cough Cough x 4 weeks Reason Comments Chest Pain Reason Comments PSG Check In Reason Comments URI Reason Onset Date Comments Appointment Cancelled 08/06/2023 Reason Comments Sleep Apnea Excessive Daytime Sleepiness Reason Comments side pain Reason Comments Yearly Exam Reason Comments Med Change Request Reason Comments [facility] Teams (unrecognized sec tion and content) Hall Porter Relationship Specialty Start Date End Date Kathy Madrigal MD [address] [place], [place] [address] PCP - General Family Practice 10/17/11 Iris Carranza Jr. Consulting Hematology 03/06/12 Hall Porter Relationship Specialty Start Date End Date Kathy Madrigal MD [address] [place], [place] [address] PCP - General Family Practice 10/17/11 Iris Carranza Jr. Consulting Hematology 03/06/12 Hall Porter Relationship Specialty Start Date End Date Kathy Madrigal MD [address] [place] [address] PCP - General Family Practice 10/17/11 Iris Carranza Jr. Consulting Hematology 03/06/12 Hall Porter Relationship Specialty Start Date End Date Kathy Madrigal MD [address] [place] [address] PCP - General Family Practice 10/17/11 Iris Carranza Jr. Consulting Hematology 03/06/12 Hall Porter Relationship Specialty Start Date End Date Kathy Madrigal MD [address] [place] [address] PCP - General Family Practice 10/17/11 Iris Carranza Jr. Consulting Hematology 03/06/12 Hall Porter Relationship Specialty Start Date End Date Kathy Madrigal MD [address] [place] [address] PCP - General Family Practice 10/17/11 Iris Carranza Jr. Consulting Hematology 03/06/12 Hall Porter Relationship Specialty Start Date End Date Kathy Madrigal MD [address] [place] [address] PCP - General Family Medicine 10/17/11 Iris Carranza Jr. Consulting Hematology 03/06/12 Hall Porter Relationship Specialty Start Date End Date Kontak, Kathy R, MD [address] [facility] [place] [address] PCP - General Family Medicine 10/17/11 Iris Carranza Jr. Consulting Hematology 03/06/12 Hall Porter Relationship Specialty Start Date End Date Kathy Madrigal MD [address] [facility] [place] [address] PCP - General Family Medicine 10/17/11 Iris Carranza Jr. [address] [facility] [place] [address] Consulting Hematology 03/06/12 Hall Porter Relationship Specialty Start Date End Date Kathy Madrigal MD [address] [facility] [place] [address] PCP - General Family Medicine 10/17/11 Iris Carranza Jr. [address] [facility] [place] [address] Consulting Hematology 03/06/12 Hall Porter Relationship Specialty Start Date End Date Kathy Madrigal MD [address] [facility] [place] [address] PCP - General Family Medicine 10/17/11 Iris Carranza Jr. [address] [facility] [place] [address] Consulting Hematology 03/06/12 Hall Porter Relationship Specialty Start Date End Date Kathy Madrigal MD [address] [facility] [place] [address] PCP - General Family Medicine 10/17/11 Iris Carranza Jr., MD [address] [place] [address] Consulting Hematology 03/06/12 Hall Porter Relationship Specialty Start Date End Date Kathy Madrigal MD [address] [place] [address] PCP - General Family Medicine 10/17/11 Iris Carranza Jr., MD [address] [place] [address] Consulting Hematology 03/06/12 Hall Porter Relationship Specialty Start Date End Date Kathy Madrigal MD [address] [place] [address] PCP - General Family Medicine 10/17/11 Iris Carranza Jr., MD [address] [place] [address] Consulting Hematology 03/06/12 Hall Porter Relationship Specialty Start Date End Date Kathy Madrigal MD [address] [place] [address] PCP - General Family Medicine 10/17/11 Iris Carranza Jr., MD [address] [place] [address] Consulting Hematology 03/06/12 Hall Porter Relationship Specialty Start Date End Date Kathy Madrigal MD [address] [place] [address] PCP - General Family Medicine 10/17/11 Iris Carranza Jr., MD [address] [place] [address] Consulting Hematology 03/06/12 Hall Porter Relationship Specialty Start Date End Date Kathy Madrigal MD [address] [place] [address] PCP - General Family Medicine 10/17/11 Iris Carranza Jr., MD [address] [place] [address] Consulting Hematology 03/06/12 Hall Porter Relationship Specialty Start Date End Date Kathy Madrigal MD [address] [place] [address] PCP - General Family Medicine 10/17/11 Iris Carranza Jr., MD [address] [place] [address] Consulting Hematology 03/06/12 Hall Porter Relationship Specialty Start Date End Date Kathy Madrigal MD [address] [place] [address] PCP - General Family Medicine 10/17/11 Iris Carranza Jr., MD [address] [place] [address] Consulting Hematology 03/06/12 Hall Porter Relationship Specialty Start Date End Date Kathy Madrigal MD [address] [place] [address] PCP - General Family Medicine 10/17/11 Iris Carranza Jr., MD [address] [place] [address] Consulting Hematology 03/06/12 Hall Porter Relationship Specialty Start Date End Date Kathy Madrigal MD [address] [place] [address] PCP - General Family Medicine 10/17/11 Iris Carranza Jr., MD [address] [place], [place] 340461 Consulting Hematology 03/06/12 Hall Porter Relationship Specialty Start Date End Date Kathy Madrigal MD [address] [place] [address] PCP - General Family Medicine 10/17/11 Iris Carranza Jr., MD [address] [place] [address] Consulting Hematology 03/06/12 Hall Porter Relationship Specialty Start Date End Date Kathy Madrigal MD [address] [place], [place] [address]4581 PCP - General Family Medicine 10/17/11 Iris Carranza Jr., MD [address] [place], [place] 989511 Consulting Hematology 03/06/12 Hall Porter Relationship Specialty Start Date End Date Kathy Madrigal MD [address] [place], [place] 418[address] PCP - General Family Medicine 10/17/11 Iris Carranza Jr., MD [address] [place], [place] [address]1561 Consulting Hematology 03/06/12 Hall Porter Relationship Specialty Start Date End Date Kathy Madrigal MD [address] [place] [address] PCP - General Family Medicine 10/17/11 Iris Carranza Jr., MD [address] [place] [address] Consulting Hematology 03/06/12 Hall Porter Relationship Specialty Start Date End Date Kathy Madrigal MD [address] [place] [address] PCP - General Family Medicine 10/17/11 Iris Carranza Jr., MD [address] [place] [address] Consulting Hematology 03/06/12 Hall Porter Relationship Specialty Start Date End Date Kathy Madrigal MD [address] [place] [address] PCP - General Family Medicine 10/17/11 Iris Carranza Jr., MD [address] [place] [address] Consulting Hematology 03/06/12 Hall Porter Relationship Specialty Start Date End Date Kathy Madrigal MD [address] [place], [place] 975021 PCP - General Family Medicine 10/17/11 Iris Carranza Jr., MD [address] [place] [address] Consulting Hematology 10/24/12 Hall Porter Relationship Specialty Start Date End Date Kontak, Kathy R, MD [address] [place] [address] PCP - General Family Medicine 10/17/11 Iris Carranza Jr., MD [address] [place] [address] Consulting Hematology 03/06/12 Lorena Zendejas PARACHUTE PACKER.S[employer]IOR [employer] OFFICER [address] [facility] [place] [address] Landscape Supervisor Internal Medicine 04/20/24 Hall Porter Relationship Specialty Start Date End Date Kathy Madrigal MD [address] [place] [address] PCP - General Family Medicine 10/17/11 Iris Carranza Jr., MD [address] [place] [address] Consulting Hematology 03/06/12 Lorena Zendejas, [employer]ACH[employer] P[employer]ER.[employer] OFFICER [address] [facility] [address] Landscape Supervisor Internal Medicine 04/20/24 Hall Porter Relationship Specialty Start Date End Date Kathy Madrigal MD [address] [place] [address] PCP - General Family Medicine 10/17/11 Iris Carranza Jr., MD [address] [place] [address] Consulting Hematology 03/06/12 Lorena Zendejas, [employer]ACHUTE P[employer]ER.[employer] OFFICER [address] [facility] [address] [place], [place] [address] Landscape Supervisor Internal Medicine 04/20/24 Hall Porter Relationship Specialty Start Date End Date Kathy Madrigal MD [address] [place] [address] PCP - General Family Medicine 10/17/11 Irsi Carranza Jr., MD [address] [place] [id number] Consulting Hematology 03/06/12 Lorena Zendejas APRN.[facility] [address] [place] [address] [address] [place], [place] [id number] [facility] Internal Medicine 04/20/24 Goals (unrecognized section and content) Goals may be documented in a n alternate section INFORMATION SOURCE (unrecogn ized section and content) DATE CREATED AUTHOR 11/07/2024 [facility] DATE CREATED AUTHOR AUTHOR'S ORGANIZ ATION 03/26/2025 [facility] [facility] FOR RECORDS PERTAINING TO PATIENTS WHO ARE OR HAVE BEEN ENROLLED IN A CHEMICAL DEPENDENCY/SUBSTANCEABUSE PROGRAM, SOME INFORMATION MAY BE OMITTED. This clinical summary was aggregated from multiple sources. Caution should be exercised in using it in the provision of clinical care. This summary normalizes information from multiple sources, and as a consequence, information in this document may materially change the coding, format and clinical context of patient data. In addition, data may be omitted in some cases. CLINICAL DECISIONS SHOULD BE BASED ON THE PRIMARY CLINICAL RECORDS. [employer] provides no warranty or guarantee of the accuracy or completeness of information in this document.
== END | disposition home or self-care (01) ==
LOC: OPBD 08:24
PROVIDERS: PCP Internal Medicine; Referring Provider Internal Medicine; Visit Provider Internal Medicine
DX: Z78.0 Asymptomatic menopausal state (principal)
CPT/HCPCS: 77080